=== PATIENT | male | born 1940 | race Caucasian/White ===

== ENCOUNTER → 2016-06-23 | Outpatient (CLI) | payer MEDICARE, OTHER ==
[2016-06-23 09:16] LABS: HEMATOCRIT 34.9 % (37.9-51.0); HEMOGLOBIN 11.9 g/dL (13.5-17.0); HGB HCT DIFFERENCE 0.8; MEAN CORPUSCULAR VOLUME 88 fl (80-97); RED BLOOD COUNT 3.95 10^6/uL (4.35-5.55); RED CELL DISTRIBUTION WIDTH 14.1 % (11.5-14.0); WHITE BLOOD COUNT 10.1 10^3/uL (4.0-10.5)
[2016-06-23 09:31] LABS: ANION GAP 12 (5-19); BLOOD UREA NITROGEN 26 mg/dL (7-20); CALCIUM 9.4 mg/dL (8.4-10.2); CARBON DIOXIDE 21 mmol/L (22-30); CHLORIDE 109 mmol/L (98-107); CREATININE RESULT 2.53 mg/dL (0.52-1.25); GLUCOSE 130 mg/dL (75-110); POTASSIUM 4.3 mmol/L (3.6-5.0); SODIUM 142.3 mmol/L (137-145)
[2016-06-23 09:37] LABS: APPEARANCE,URINE CLEAR; BILIRUBIN,URINE NEGATIVE (NEGATIVE); GLUCOSE, URINE NEGATIVE (NEGATIVE); KETONES,URINE NEGATIVE (NEGATIVE); LEUKOCYTE ESTERASE,URINE NEGATIVE (NEGATIVE); NITRITE,URINE NEGATIVE (NEGATIVE); PROTEIN,URINE NEGATIVE (NEGATIVE); URINE SPECIFIC GRAVITY 1.005; UROBILINOGEN,URINE NEGATIVE mg/dL (<2.0)
== END ==
LOC: LAB 09:06
PROVIDERS: ATTEND Internal Medicine Nephrology
DX: I12.9 Hypertensive chronic kidney disease with stage 1 through stage 4 chronic kidney disease, or unspecified chronic kidney disease (principal); N18.3 Chronic kidney disease, stage 3 (moderate); E87.5 Hyperkalemia; R80.9 Proteinuria, unspecified; D64.9 Anemia, unspecified
CPT/HCPCS: 36415; 80048; 81001; 82570; 84156; 85027

== ENCOUNTER 2016-07-12 08:17 | Inpatient (IN) | payer MEDICARE, OTHER ==
[2016-07-12] MEDS ORDERED: NORMAL SALINE 1000 ML 1,000 ML IV ONE ×2 (08:45→08:46)
[2016-07-12] MEDS ORDERED: ONDANSETRON HCL INJ/PF 4 MG/2 ML SDV IV ONE (08:46)
[2016-07-12 09:02] LABS: ABSOLUTE EOSINOPHILS # (AUTO) 0.1 10^3/uL (0.0-0.6); ABSOLUTE LYMPHOCYTES (AUTO) 0.9 10^3/uL (0.5-4.7); ABSOLUTE MONOCYTES (AUTO) 0.5 10^3/uL (0.1-1.4); ABSOLUTE NEUT (AUTO) 10.8 10^3/uL (1.7-8.2); BASOPHILS % (AUTO) 0.2 % (0-2); EOSINOPHILS % (AUTO) 0.7 % (0-6); HEMATOCRIT 39.3 % (37.9-51.0); HEMOGLOBIN 13.3 g/dL (13.5-17.0); HGB HCT DIFFERENCE 0.6; LYMPHOCYTES % (AUTO) 7.2 % (13-45); MEAN CORPUSCULAR HEMOGLOBIN 30.1 pg (27.0-33.4); MEAN CORPUSCULAR VOLUME 89 fl (80-97); MONOCYTES % (AUTO) 4.3 % (3-13); RED BLOOD COUNT 4.43 10^6/uL (4.35-5.55); RED CELL DISTRIBUTION WIDTH 14.1 % (11.5-14.0); SEGMENTED NEUTROPHILS % (AUTO) 87.6 % (42-78); WHITE BLOOD COUNT 12.3 10^3/uL (4.0-10.5)
[2016-07-12 09:20] LABS: ALANINE AMINOTRANSFERASE 29 U/L (21-72); ALBUMIN 4.5 g/dL (3.5-5.0); ALKALINE PHOSPHATASE 157 U/L (38-126); ANION GAP 18 (5-19); ASPARTATE AMINO TRANSFERASE 25 U/L (17-59); BILIRUBIN,DIRECT 0.5 mg/dL (0.0-0.4); BILIRUBIN,TOTAL 0.7 mg/dL (0.2-1.3); BLOOD UREA NITROGEN 36 mg/dL (7-20); CALCIUM 10.4 mg/dL (8.4-10.2); CARBON DIOXIDE 19 mmol/L (22-30); CHLORIDE 102 mmol/L (98-107); CREATININE RESULT 3.62 mg/dL (0.52-1.25); GLUCOSE 154 mg/dL (75-110); LIPASE 113.5 U/L (23-300); POTASSIUM 5.3 mmol/L (3.6-5.0); SODIUM 139.1 mmol/L (137-145); TOTAL PROTEIN 8.6 g/dL (6.3-8.2)
[2016-07-12] MEDS ORDERED: DIPHENHYDRAMINE HCL 50 MG/ML VIAL IV ONE (09:58)
[2016-07-12] MEDS ORDERED: METOCLOPRAMIDE HCL INJ/PF 10 MG/2 ML SDV IV ONE (09:58)
--- NOTE | 2016-07-12 10:02 | ER Document Report ---
ED General - General Chief Complaint: Abdominal Pain Stated Complaint: ABDOMINAL PAIN TRAVEL OUTSIDE OF THE [place] IN LAST 30 DAYS: No - HPI Patient complains to provider of: left lower quadrant abdominal pain Notes: Patient presents today for left lower quadrant abdominal pain. Patient states nausea vomiting with no bowel movement for last 2 days no urinary output for the last 24 hours. Patient does have a history of renal insufficiency. Patient is currently on Lasix to as well. Patient also has a history of a AAA with endograft repair possibly 15 years prior. Patient also has a history of bowel resection. Upon evaluation patient is alert and oriented complaining of nausea looks nontoxic. States no radiation of pain into his back. He states no fevers or chills. - Related Data Allergies/Adverse Reactions: iodine [Iodine] Allergy (Mild, Verified 07/12/16 08:28) itching, burning Penicillins Allergy (Mild, Verified 07/12/16 08:28) welts, nausea, nomiting Past Medical History - Social History Smoking Status: Never Smoker Frequency of alcohol use: None Drug Abuse: None Family History: Reviewed & Not Pertinent Patient has suicidal ideation: No Patient has homicidal ideation: No - Past Medical History Cardiac Medical History: Reports: Hx Coronary Artery Disease, Hx Hypercholesterolemia, Hx Hypertension Denies: Hx Heart Attack Pulmonary Medical History: Denies: Hx Asthma, Hx Bronchitis, Hx COPD, Hx Pneumonia Neurological Medical History: Denies: Hx Cerebrovascular Accident, Hx Seizures Endocrine Medical History: Reports: Hx Hypothyroidism Renal/ Medical History: Reports: Hx Benign Prostatic Hyperplasia. Denies: Hx Peritoneal Dialysis GI Medical History: Reports: Hx Diverticulitis Musculoskeltal Medical History: Reports Hx Arthritis Past Surgical History: Reports: Hx Abdominal Surgery - colectomy, Hx Appendectomy, Other - Back Surgery (Patient is unsure what type). Denies: Hx Pacemaker - Immunizations Hx Diphtheria, Pertussis, Tetanus Vaccination: No Hx Pneumococcal Vaccination: 12/07/14 Review of Systems - Review of Systems Constitutional: No symptoms reported EENT: No symptoms reported Cardiovascular: No symptoms reported Respiratory: No symptoms reported Gastrointestinal: Abdominal pain, Nausea, Vomiting Genitourinary: No symptoms reported Male Genitourinary: No symptoms reported Musculoskeletal: No symptoms reported Skin: No symptoms reported Hematologic/Lymphatic: No symptoms reported Neurological/Psychological: No symptoms reported -: Yes All other systems reviewed and negative Physical Exam - Vital signs Vitals: Temp Pulse Resp BP Pulse Ox 97.2 F 95 20 126/72 H 95 07/12/16 08:25 07/12/16 08:25 07/12/16 08:25 07/12/16 08:25 07/12/16 08:25 Interpretation: Normal - General General appearance: Appears well, Alert - HEENT Head: Normocephalic, Atraumatic Eyes: Normal Pupils: PERRL - Respiratory Respiratory status: No respiratory distress Chest status: Nontender Breath sounds: Normal Chest palpation: Normal - Cardiovascular Rhythm: Regular Heart sounds: Normal auscultation Murmur: No - Abdominal Inspection: Normal Distension: No distension Bowel sounds: Normal Tenderness: Tender - Mild to moderate left lower quadrant tenderness. Voluntary guarding. No: Rebound Organomegaly: No organomegaly - Back Back: Normal, Nontender - Extremities General upper extremity: Normal inspection, Nontender, Normal color, Normal ROM , Normal temperature General lower extremity: Normal inspection, Nontender, Normal color, Normal ROM , Normal temperature, Normal weight bearing. No: Jason's sign - Neurological Neuro grossly intact: Yes Cognition: Normal Orientation: AAOx4 Kat Coma Scale Eye Opening: Spontaneous Kat Coma Scale Verbal: Oriented Kat Coma Scale Motor: Obeys Commands Kat Coma Scale Total: 15 Speech: Normal Motor strength normal: LUE, RUE, LLE, RLE Sensory: Normal - Psychological Associated symptoms: Normal affect, Normal mood - Skin Skin Temperature: Warm Skin Moisture: Dry Skin Color: Normal Course - Vital Signs Vital signs: Temp Pulse Resp BP Pulse Ox 97.2 F 95 20 126/72 H 95 07/12/16 08:25 07/12/16 08:25 07/12/16 08:40 07/12/16 08:25 07/12/16 08:25 - Laboratory Result Diagrams: 07/12/16 08:46 07/12/16 08:46 Laboratory results interpreted by me: 07/12/16 07/12/16 08:46 08:46 WBC 12.3 H Hgb 13.3 L RDW 14.1 H Seg Neutrophils % 87.6 H Lymphocytes % 7.2 L Absolute Neutrophils 10.8 H Potassium 5.3 H Carbon Dioxide 19 L BUN 36 H Creatinine 3.62 H Est GFR ( Amer) 20 L Est GFR (Non-Af Amer) 17 L Glucose 154 H Calcium 10.4 H Direct Bilirubin 0.5 H Alkaline Phosphatase 157 H Total Protein 8.6 H Discharge - Discharge Clinical Impression: Small bowel obstruction, History of chronic kidney disease, History of abdominal aortic aneurysm (AAA) repair Acute renal failure superimposed on chronic kidney disease Qualifiers: Acute renal failure type: unspecified Chronic kidney disease stage: unspecified stage Qualified Code(s): N17.9 - Acute kidney failure, unspecified; N18.9 - Chronic kidney disease, unspecified Nausea and vomiting Qualifiers: Vomiting type: unspecified Vomiting Intractability: unspecified Qualified Code( s): R11.2 - Nausea with vomiting, unspecified Condition: Good Disposition: ADMITTED INPATIENT Admitting Provider: Hospitalist - [facility] Admitted: Medical Floor
[2016-07-12] MEDS ORDERED: LIDOCAINE 1% INJ-PF (10 MG/ML) 30 ML SDV NEB ONE (13:45)
[2016-07-12] MEDS ORDERED: ALBUTEROL SULFATE 0.083% NEB 2.5 MG/3 ML AMPUL NEB PRN (14:46)
[2016-07-12] MEDS ORDERED: DEXTROSE 50%-WATER 25 GM/50 ML DISP.SYRIN IV PRN ×2 (14:46)
[2016-07-12] MEDS ORDERED: ACETAMINOPHEN 325 MG TABLET NG PRN (14:46)
[2016-07-12] MEDS ORDERED: DEXTROSE 40% GEL 15 GM TUBE PO PRN ×2 (14:46)
[2016-07-12] MEDS ORDERED: GLUCAGON,HUMAN RECOMB 1 MG INJ SUBCUT PRN (14:46)
[2016-07-12] MEDS ORDERED: PHARMACY COMMUNICATION ORDER MC NR (15:00)
--- NOTE | 2016-07-12 15:05 | PDOC H&P ---
History of Present Illness Admission Date/PCP: 07/12/16 14:13 RITCHIE HENLEY MD Patient complains of: Nausea vomiting and abdominal pain 3 days History of Present Illness: EYAL ELLER is a 75 year old male who has a history of diverticulitis requiring a partial colectomy 15 years ago who had a small bowel obstruction about 5 years ago requiring surgery who presents with abdominal pain. The patient reports for the last 3 days he's had nausea vomiting and lower abdominal pain. She reports this was very similar to what he had 5 years ago that required a surgical intervention for his small bowel obstruction. Patient has not had a bowel movement since . He also reports the last time he was able to keep down food was . He denies any fevers or chills. He reports the pain in his lower abdomen but does not radiate. He denies any melena or bright red blood per rectum. He denies any hematemesis. The patient denies any exposure to anyone who has been ill. Denies any travel outside of [facility]. Past Medical History Cardiac Medical History: Reports: Hyperlipidema, Hypertension, Other - History of abdominal aortic aneurysm repair endovascular Denies: Myocardial Infarction Pulmonary Medical History: Reports: Chronic Obstructive Pulmonary Disease (COPD) Denies: Asthma, Bronchitis, Pneumonia EENT Medical History: Reports: None Endocrine Medical History: Reports: Hypothyroidism Renal/ Medical History: Reports: Chronic Kidney Disease Malignancy Medical History: Reports: None GI Medical History: Reports: Diverticulitis, Gastroesophageal Reflux Disease Musculoskeltal Medical History: Reports: Arthritis Skin Medical History: Reports: None Psychiatric Medical History: Reports: None Hematology: Denies: Anemia Infectious Medical History: Reports: None Past Surgical History Past Surgical History: Reports: Appendectomy, Other - Back Surgery (Patient is unsure what type) also had a partial colectomy Social History Information Source: Patient Lives with: Spouse/Significant other Smoking Status: Never Smoker Frequency of Alcohol Use: None Hx Recreational Drug Use: No Drugs: None Hx Prescription Drug Abuse: No - Advance Directive Resuscitation Status: Do Not Resuscitate Surrogate healthcare decision maker:: His Family History Family History: Mother at age 55 of lung cancer and COPD. Father in his 50s from coronary artery disease. Parental Family History Reviewed: Yes Children Family History Reviewed: No Sibling(s) Family History Reviewed.: No Medication/Allergy Home Medications: Acetaminophen [Tylenol 325 mg Tablet] 325 mg PO Q4HP PRN 04/24/11 Albuterol 2 puff IH Q4H PRN 04/24/11 Amitriptyline HCl [Elavil 25 Mg Tablet] 25 mg PO QHS 04/24/11 Cyanocobalamin (Vitamin B-12) [Vitamin B-12] 1,500 mcg PO DAILY 04/24/11 Cyclobenzaprine HCl 10 mg PO ASDIR PRN 04/24/11 Diltiazem HCl [Tiazac] 240 mg PO DAILY 04/24/11 Hydralazine HCl [Apresoline 25 Mg Tablet] 25 mg PO BID 04/24/11 Levothyroxine Sodium [Synthroid] 225 mcg PO DAILY 04/24/11 Potassium Chloride [Klor-Con 10 Meq Tablet.sa] 40 meq PO DAILY 04/24/11 Brinzolamide/Brimonidine Tart [Simbrinza 1%-0.2% Eye Drops] 1 drop OP TID Finasteride [Proscar 5 mg Tablet] 5 mg PO DAILY 08/07/15 Fluticasone Propionate [Flovent Hfa] 10.6 gm IH PRN PRN 08/07/15 Pseudoephedrine/Triprolidine [Aprodine Tablet] 1 each PO BID 08/07/15 Tamsulosin HCl [Flomax 0.4 mg Cap.sr] 0.4 mg PO DAILY 08/07/15 Tramadol HCl [Ultram] 50 mg PO BID 08/07/15 Allergies/Adverse Reactions: iodine [Iodine] Allergy (Mild, Verified 07/12/16 08:28) itching, burning Penicillins Allergy (Mild, Verified 07/12/16 08:28) welts, nausea, nomiting Review of Systems Constitutional: ABSENT: chills, fever(s), headache(s), weight gain, weight loss Eyes: ABSENT: visual disturbances Ears: ABSENT: hearing changes Cardiovascular: ABSENT: chest pain, dyspnea on exertion, edema, orthropnea, palpitations Respiratory: ABSENT: cough, hemoptysis Gastrointestinal: PRESENT: as per HPI, abdominal pain, heartburn, nausea, vomiting. ABSENT: coffee ground emesis, diarrhea, dysphagia, hematemesis, hematochezia, melena Genitourinary: ABSENT: dysuria, hematuria Musculoskeletal: ABSENT: joint swelling Integumentary: ABSENT: rash, wounds Neurological: ABSENT: abnormal gait, abnormal speech, confusion, dizziness, focal weakness, syncope Psychiatric: ABSENT: anxiety, depression Endocrine: ABSENT: cold intolerance, heat intolerance, polydipsia, polyuria Hematologic/Lymphatic: ABSENT: easy bleeding, easy bruising Physical Exam Vital Signs: Temp Pulse Resp BP Pulse Ox 97.2 F 95 20 126/72 H 95 07/12/16 08:25 07/12/16 08:25 07/12/16 08:40 07/12/16 08:25 07/12/16 08:25 General appearance: PRESENT: no acute distress, well-developed, well-nourished Head exam: PRESENT: atraumatic, normocephalic Eye exam: PRESENT: conjunctiva pink, EOMI, PERRLA. ABSENT: scleral icterus Ear exam: PRESENT: normal external ear exam Mouth exam: PRESENT: moist, tongue midline Neck exam: ABSENT: carotid bruit, JVD, lymphadenopathy, thyromegaly Respiratory exam: PRESENT: clear to auscultation brenda. ABSENT: rales, rhonchi, wheezes Cardiovascular exam: PRESENT: RRR. ABSENT: diastolic murmur, rubs, systolic murmur Vascular exam: PRESENT: normal capillary refill GI/Abdominal exam: PRESENT: hypoactive bowel sounds, soft, tenderness - Lower abdominal tenderness but no guarding or rebound.. ABSENT: distended, guarding, mass, organolmegaly, rebound Rectal exam: PRESENT: deferred Extremities exam: ABSENT: calf tenderness, clubbing, pedal edema Neurological exam: PRESENT: alert, awake, oriented to person, oriented to place , oriented to time, oriented to situation, CN II-XII grossly intact. ABSENT: motor sensory deficit Psychiatric exam: PRESENT: appropriate affect, normal mood Skin exam: PRESENT: dry, intact, warm. ABSENT: cyanosis, rash Results Impressions: Abdomen/Pelvis CT 07/12/16 08:46 IMPRESSION: CT FINDINGS CONCERNING FOR DISTAL SMALL BOWEL OBSTRUCTION WITH TRANSITION POINT AT SURGICAL ANASTOMOSIS. SURGICAL CONSULTATION RECOMMENDED. Assessment & Plan - Diagnosis (1) Small bowel obstruction Is this a current diagnosis for this admission?: YesPlan: Patient has a history the past of diverticulitis requiring a partial colectomy. He had a small bowel obstruction 5 years ago that required surgical repair. Reports symptoms he is having now are just like what he had previously. We will place an NG tube. We'll start the patient on IV fluids and ask surgery to evaluate. We'll give narcotics as needed. We'll also follow KUB in the morning. (2) Diverticulitis Is this a current diagnosis for this admission?: YesPlan: Patient has a history of diverticulitis but has no obvious infection today. There is mostly obstruction. (3) COPD (chronic obstructive pulmonary disease) Is this a current diagnosis for this admission?: YesPlan: We'll give nebulizers as needed. (4) Hypertension Is this a current diagnosis for this admission?: YesPlan: Patient has been on hydralazine and diltiazem. We'll give IV hydralazine while he is nothing by mouth. (5) Gastroesophageal reflux disease Is this a current diagnosis for this admission?: YesPlan: We'll give IV Pepcid (6) Hypothyroidism Is this a current diagnosis for this admission?: YesPlan: Patient reports that he has been on 225 g Synthroid. Will see how he does with the next 24 hours we'll start him on IV thyroid replacement if he is unable to take by mouth in the next 24 hours. (7) Acute on chronic kidney failure Qualifiers: Acute renal failure type: unspecified Chronic kidney disease stage: unspecified stage Qualified Code(s): N17.9 - Acute kidney failure, unspecified; N18.9 - Chronic kidney disease, unspecified Is this a current diagnosis for this admission?: YesPlan: Patient has acute on chronic renal failure stage III. We'll give IV fluids and hold his Lasix for now. (8) History of AAA (abdominal aortic aneurysm) repair Is this a current diagnosis for this admission?: YesPlan: He has a history of endovascular repair. (9) Do not resuscitate Is this a current diagnosis for this admission?: YesPlan: The patient requests to be a DO NOT RESUSCITATE. The is present and is in agreement. - Time Time Spent: 50 to 70 Minutes - Inpatient Certification Medical Necessity: Need Close Monitoring Due to Risk of Patient Decompensation, Need For IV Fluids - Plan Summary Plan Summary: We'll admit to medical floor and ask general surgery to consult.
[2016-07-12] MEDS: HYDROMORPHONE HCL INJ/PF 2 MG/ML AMPULE IV PRN ×2 (15:18→21:37)
[2016-07-12 15:29] LABS: APPEARANCE,URINE CLEAR; BILIRUBIN,URINE NEGATIVE (NEGATIVE); GLUCOSE, URINE NEGATIVE (NEGATIVE); KETONES,URINE NEGATIVE (NEGATIVE); LEUKOCYTE ESTERASE,URINE NEGATIVE (NEGATIVE); NITRITE,URINE NEGATIVE (NEGATIVE); PROTEIN,URINE 30 mg/dL (NEGATIVE); URINE SPECIFIC GRAVITY 1.013; UROBILINOGEN,URINE NEGATIVE mg/dL (<2.0)
[2016-07-12] MEDS: ONDANSETRON HCL INJ/PF 4 MG/2 ML SDV IV PRN ×2 (15:54→21:37)
[2016-07-12] MEDS: NORMAL SALINE 1000 ML 1,000 ML IV PRN (18:49)
--- NOTE | 2016-07-12 20:53 | CONSULTATION REPORT E ---
Consultation Report NAME: EYAL ELLER : 1940 AGE: 75Y DATE: 07/12/2016 401 A TO: BATSHEVA MEJIA M.D. FROM: Emergency Room Requesting Physician REASON FOR CONSULTATION: Evaluation and management of abdominal pain, nausea and vomiting and possible small bowel obstruction. HISTORY OF PRESENT ILLNESS: This gentleman has a significant history of small bowel obstruction in the past. In 2002 or 15 years ago, he had an open colon resection by Dr. James. The patient cannot remember the reason for colectomy; in any case, the patient says he had a subtotal colectomy and possible right colectomy. After that, 6 years ago he had an episode of small bowel obstruction when he was out of town in [place] and he had to undergo an exploratory laparotomy at the time for a small bowel lysis of adhesions and he did well after that. After that he some abdominal pain but never had a significant episode of obstruction. About 3 years ago he had abdominal aortic aneurysm repair, endovascular repair. Other than that he has been doing fine except for hypertension, but this time found to have renal failure on lab investigations. Otherwise he has been in usual health with on and off abdominal pain. He is now presenting with a 2-day history of abdominal pain that started the day before yesterday. Yesterday he threw up a few times at home and could not tolerate anymore pain and came to our emergency room. After coming here, he vomited once. No bowel movements for the last 3 days and the pain is mostly in the midabdomen, crampy with nausea. PAST MEDICAL HISTORY: 1. History of abdominal aortic aneurysm. 2. History of adhesions. 3. History of laparotomies in the past. 4. Hypertension. 5. Possible chronic renal insufficiency. PAST SURGICAL HISTORY: 1. Colectomy in the past. 2. Exploratory laparotomy and lysis of adhesions again in the past. 3. Abdominal aortic aneurysm repair and endovascular repair. PERSONAL HISTORY: Not a smoker, does not drink alcohol, lives with the family. REVIEW OF SYSTEMS: As per examination. PHYSICAL EXAMINATION: GENERAL: Reveals an elderly gentleman, very pleasant, mildly dehydrated. VITAL SIGNS: Blood pressure 126/72, heart rate around 95, saturating 95% at room air, afebrile. HEAD/NECK: Normocephalic. Normal sclerae, no icterus. Mildly dehydrated. No lymphadenopathy, no masses. RESPIRATORY: Both lungs are clear to auscultation. CARDIOVASCULAR: Both sounds regular. No murmurs or gallops. ABDOMINAL: Moderately distended, soft, moderately tender diffusely but no rebound tenderness and no palpable hernia. Hyperactive bowel sounds on auscultation. There is a long midline incision. EXTREMITIES: Warm and well perfused. DIAGNOSTIC DATA: Significant for white count which is 12.3, hemoglobin. Chemistry: Potassium , BUN 36, creatinine 3.62. CT scan of the abdomen and pelvis reveals dilated small bowel loops up to the area of anastomosis in the right upper quadrant area near anastomosis. Possibly there seemed to be within the right colon and small bowel with dilation proximal to that area. IMPRESSION OVERALL: Small bowel obstruction and based on the CT scan, he may have a stricture of the anastomotic area, and if it is due to stricture, he will need surgical intervention. If it is mostly adhesive obstruction, I expect that to make it better. In any case, since he does not have any peritoneal signs, the plan is to admit him, IV hydration, admit to medical service because of medical problems. IV hydration cautiously and then NG tube for decompression, bowel rest, Bingham catheter and then to monitor the urine output accurately and then based on his response to therapy, we will plan if he needs any surgical intervention and close monitoring. Thank you for allowing me to participate in the care of this patient. DICTATING PHYSICIAN: BATSHEVA MEJIA M.D. [id number] PHY#: [id number] ID: [id number] JOB#: [id number] ACCT: [id number] cc:BATSHEVA MEJIA M.D. > MTDD
[2016-07-12] MEDS: FAMOTIDINE INJ/PF 20 MG/2 ML SDV IV SCH (21:37)
[2016-07-13] MEDS: ONDANSETRON HCL INJ/PF 4 MG/2 ML SDV IV PRN ×4 (02:00→21:30)
[2016-07-13] MEDS: NORMAL SALINE 1000 ML 1,000 ML IV PRN ×4 (02:00→23:51)
[2016-07-13] MEDS: HYDROMORPHONE HCL INJ/PF 2 MG/ML AMPULE IV PRN ×6 (02:00→23:48)
[2016-07-13 05:16] LABS: HEMATOCRIT 33.5 % (37.9-51.0); HGB HCT DIFFERENCE 0.7; MEAN CORPUSCULAR HEMOGLOBIN 30.5 pg (27.0-33.4); MEAN CORPUSCULAR VOLUME 90 fl (80-97); RED BLOOD COUNT 3.74 10^6/uL (4.35-5.55); RED CELL DISTRIBUTION WIDTH 13.9 % (11.5-14.0); WHITE BLOOD COUNT 8.6 10^3/uL (4.0-10.5)
[2016-07-13 05:19] LABS: HEMOGLOBIN 11.4 g/dL (13.5-17.0)
[2016-07-13 05:25] LABS: ANION GAP 10 (5-19); BLOOD UREA NITROGEN 29 mg/dL (7-20); CALCIUM 8.8 mg/dL (8.4-10.2); CARBON DIOXIDE 18 mmol/L (22-30); CHLORIDE 112 mmol/L (98-107); CREATININE RESULT 2.49 mg/dL (0.52-1.25); GLUCOSE 93 mg/dL (75-110); POTASSIUM 4.6 mmol/L (3.6-5.0); SODIUM 140.4 mmol/L (137-145)
--- NOTE | 2016-07-13 09:34 | PDOC PROGRESS REPORT ---
Subjective Progress Note for:: 07/13/16 Subjective:: Patient reports that his nausea and abdominal pain has improved. He denies any flatus or bowel movements. Physical Exam Vital Signs: Temp Pulse Resp BP Pulse Ox 98.4 F 94 17 131/68 H 95 07/13/16 07:30 07/13/16 07:30 07/13/16 07:30 07/13/16 07:30 07/13/16 07:30 Intake & Output 07/12/16 07/13/16 07/14/16 06:59 06:59 06:59 Intake Total 1975 1818 Output Total 1850 Balance 125 1818 Weight 75.3 kg General appearance: PRESENT: no acute distress Eye exam: PRESENT: conjunctiva pink. ABSENT: scleral icterus Mouth exam: PRESENT: moist, tongue midline Neck exam: ABSENT: JVD Respiratory exam: PRESENT: clear to auscultation brenda. ABSENT: rales, rhonchi, wheezes Cardiovascular exam: PRESENT: RRR. ABSENT: diastolic murmur, rubs, systolic murmur GI/Abdominal exam: PRESENT: hypoactive bowel sounds, soft, tenderness - Mild lower abdominal tenderness but no guarding or rebound.. ABSENT: distended, guarding, mass, organolmegaly, rebound Extremities exam: ABSENT: calf tenderness, clubbing, pedal edema Neurological exam: PRESENT: alert, awake, oriented to person, oriented to place , oriented to time, oriented to situation, CN II-XII grossly intact. ABSENT: motor sensory deficit Psychiatric exam: PRESENT: appropriate affect Skin exam: PRESENT: dry, intact, warm. ABSENT: cyanosis, rash Results Laboratory Results: 07/13/16 03:52 07/13/16 03:52 07/12/16 07/13/16 07/13/16 15:00 03:52 03:52 WBC 8.6 RBC 3.74 L Hgb 11.4 L Hct 33.5 L MCV 90 MCH 30.5 MCHC 34.0 RDW 13.9 Plt Count 143 L Sodium 140.4 Potassium 4.6 Chloride 112 H Carbon Dioxide 18 L Anion Gap 10 BUN 29 H Creatinine 2.49 H Est GFR ( Amer) 31 L Est GFR (Non-Af Amer) 25 L Glucose 93 Calcium 8.8 Urine Color YELLOW Urine Appearance CLEAR Urine pH 5.0 Ur Specific [place] 1.013 Urine Protein 30 H Urine Glucose (UA) NEGATIVE Urine Ketones NEGATIVE Urine Blood NEGATIVE Urine Nitrite NEGATIVE Ur Leukocyte Esterase NEGATIVE Urine WBC (Auto) 1 Urine RBC (Auto) 4 Impressions: Abdomen/Pelvis CT 07/12/16 08:46 IMPRESSION: CT FINDINGS CONCERNING FOR DISTAL SMALL BOWEL OBSTRUCTION WITH TRANSITION POINT AT SURGICAL ANASTOMOSIS. SURGICAL CONSULTATION RECOMMENDED. KUB X-Ray 07/12/16 15:00 IMPRESSION: STABLE DISTENDED LOOPS OF BOWEL COMPATIBLE WITH OBSTRUCTION. NASOGASTRIC TUBE IS NOT VISUALIZED. CORRELATE WITH CLINICAL HISTORY. Abdomen X-Ray 07/13/16 06:30 IMPRESSION: APPARENT FREE AIR UNDER THE RIGHT HEMIDIAPHRAGM IN THE SETTING OF SMALL BOWEL OBSTRUCTION CONCERNING FOR PERFORATION. CT IS AVAILABLE FOR FURTHER EVALUATION IS INDICATED. RESULTS WERE COMMUNICATED TO THE ATTENDING SURGEON DR. MEJIA AT 0903 HOURS ON 07/13/2016. Assessment & Plan - Diagnosis (1) Small bowel obstruction Is this a current diagnosis for this admission?: YesPlan: Patient has a history the past of diverticulitis requiring a partial colectomy. He had a small bowel obstruction 5 years ago that required surgical repair. Reports symptoms he is having now are just like what he had previously. Was contacted by radiologist that there may be possibly free air in the abdomen. Patient is being followed by general surgery and will follow their recommendations. (2) Diverticulitis Is this a current diagnosis for this admission?: YesPlan: Patient has a history of diverticulitis but has no obvious infection today. There is mostly obstruction. (3) COPD (chronic obstructive pulmonary disease) Is this a current diagnosis for this admission?: YesPlan: We'll give nebulizers as needed. (4) Hypertension Is this a current diagnosis for this admission?: YesPlan: Patient has been on hydralazine and diltiazem. We'll give IV hydralazine while he is nothing by mouth. (5) Gastroesophageal reflux disease Is this a current diagnosis for this admission?: YesPlan: We'll give IV Pepcid (6) Hypothyroidism Is this a current diagnosis for this admission?: YesPlan: Patient reports that he has been on 225 g Synthroid. Will see how he does with the next 24 hours we'll start him on IV thyroid replacement if he is unable to take by mouth in the next 24 hours. (7) Acute on chronic kidney failure Qualifiers: Acute renal failure type: unspecified Chronic kidney disease stage: unspecified stage Qualified Code(s): N17.9 - Acute kidney failure, unspecified; N18.9 - Chronic kidney disease, unspecified Is this a current diagnosis for this admission?: YesPlan: Patient has acute on chronic renal failure stage III. Creatinine has improved with IV fluids. (8) History of AAA (abdominal aortic aneurysm) repair Is this a current diagnosis for this admission?: YesPlan: He has a history of endovascular repair. (9) Do not resuscitate Is this a current diagnosis for this admission?: YesPlan: The patient requests to be a DO NOT RESUSCITATE. The is present and is in agreement. - Time Time Spent with patient: 25-34 minutes - Inpatient Certification Medical Necessity: Need Close Monitoring Due to Risk of Patient Decompensation, Need For IV Fluids
[2016-07-13] MEDS: PHENOL/SODIUM PHENOLATE 100 SPRAY/177 ML BOTTLE PO PRN ×3 (11:10→23:48)
[2016-07-13] MEDS ORDERED: NITROGLYCERIN 2% OINTMENT 1 GM PACKET TP ONE (13:30)
[2016-07-13] MEDS ORDERED: METOPROLOL TARTRATE PF/INJ 5 MG/5 ML SDV IV PRN (13:31)
--- NOTE | 2016-07-13 13:31 | PDOC CONSULTATION ---
Consultation Consult Date: 07/13/16 Attending physician:: AUDI Mendieta BUSTEED Consult reason:: Abnormal EKG and chest pain History of Present Illness Admission Date/PCP: 07/12/16 14:46 RITCHIE HENLEY MD Patient complains of: Chest pain History of Present Illness: EYAL ELLER is a 75 year old male who has a history of diverticulitis requiring a partial colectomy 15 years ago who had a small bowel obstruction about 5 years ago requiring surgery who presents with abdominal pain. The patient reports for the last 3 days he's had nausea vomiting and lower abdominal pain. She reports this was very similar to what he had 5 years ago that required a surgical intervention for his small bowel obstruction. Patient has not had a bowel movement since . He also reports the last time he was able to keep down food was . He denies any fevers or chills. He reports the pain in his lower abdomen but does not radiate. He denies any melena or bright red blood per rectum. He denies any hematemesis. The patient denies any exposure to anyone who has been ill. Denies any travel outside of [facility]. Today while resting in bed, patient developed chest pain. An EKG was obtained which showed significant ST segment depression in lateral chest leads consistent with ischemia. On questioning patient did admit to having chest pain. Patient does describe some positional component to the chest pain. Patient has noted this mostly when his waist down but is better when he sits up. Patient describes the discomfort as tightness feeling. Patient denied any prior history of heart problems. Patient claims that he has had EKGs in the past and was not told to have a abnormal EKG. We do not have any prior EKG in this system. Patient does have increased QRS voltage. CT abdomen and pelvis were reviewed. These review showed patient does have coronary calcification in the LAD and circumflex territory. Past Medical History Cardiac Medical History: Reports: Coronary Artery Disease, Hyperlipidema, Hypertension, Other - History of abdominal aortic aneurysm repair endovascular Denies: Myocardial Infarction Pulmonary Medical History: Reports: Chronic Obstructive Pulmonary Disease (COPD) Denies: Asthma, Bronchitis, Pneumonia EENT Medical History: Reports: None Neurological Medical History: Denies: Seizures Endocrine Medical History: Reports: Hypothyroidism Renal/ Medical History: Reports: Chronic Kidney Disease Malignancy Medical History: Reports: None GI Medical History: Reports: Diverticulitis, Gastroesophageal Reflux Disease Musculoskeltal Medical History: Reports: Arthritis Skin Medical History: Reports: None Psychiatric Medical History: Reports: None Hematology: Denies: Anemia Infectious Medical History: Reports: None Past Surgical History Past Surgical History: Reports: Appendectomy, Other - Back Surgery (Patient is unsure what type) also had a partial colectomy Denies: Pacemaker Social History Information Source: Patient Lives with: Spouse/Significant other Smoking Status: Former Smoker Frequency of Alcohol Use: None Hx Recreational Drug Use: No Drugs: None Hx Prescription Drug Abuse: No - Advance Directive Resuscitation Status: Do Not Resuscitate Surrogate healthcare decision maker:: Patient's is the surrogate decision maker. Family History Family History: Reviewed & Not Pertinent Parental Family History Reviewed: Yes Children Family History Reviewed: Yes Sibling(s) Family History Reviewed.: Yes Medication/Allergy Home Medications: Acetaminophen [Tylenol] 325 mg PO ASDIR PRN 07/12/16 Albuterol Sulfate [Proair HFA] 2 puff IH Q4HP PRN 07/12/16 Amitriptyline HCl [Elavil 25 mg Tablet] 25 mg PO QHS 07/12/16 Brinzolamide/Brimonidine Tart [Simbrinza 1%-0.2% Eye Drops] 1 drop OU BID Cetirizine HCl [Zyrtec 10 mg Tablet] 1 tab PO BIDP PRN 07/12/16 Cyanocobalamin (Vitamin B-12) [Vitamin B12] 1,500 mcg PO DAILY 07/12/16 Cyclobenzaprine HCl [Flexeril 10 mg Tablet] 10 mg PO BID 07/12/16 Diltiazem HCl [Tiazac] 240 mg PO DAILY 07/12/16 Finasteride [Proscar 5 mg Tablet] 5 mg PO DAILY 07/12/16 Fluticasone Propionate [Flovent Diskus 100 mcg] 1 puff IH ASDIR PRN 07/12/16 Furosemide [Lasix] 20 mg PO ASDIR PRN 07/12/16 Hydralazine HCl [Apresoline 25 mg Tablet] 25 mg PO QHS 07/12/16 Hydralazine HCl [Apresoline 25 mg Tablet] 50 mg PO QAM 07/12/16 Levothyroxine Sodium [Synthroid] 25 mcg PO QAM 07/12/16 Levothyroxine Sodium [Synthroid] 200 mcg PO QAM 07/12/16 Losartan Potassium [Cozaar] 25 mg PO DAILY 07/12/16 Potassium Chloride 20 meq PO QAM 07/12/16 Tamsulosin HCl [Flomax 0.4 mg Cap.sr] 0.4 mg PO DAILY 07/12/16 Tramadol HCl [Ultram 50 mg Tablet] 50 mg PO BID 07/12/16 Allergies/Adverse Reactions: iodine [Iodine] Allergy (Mild, Verified 07/12/16 08:28) itching, burning Penicillins Allergy (Mild, Verified 07/12/16 08:28) welts, nausea, nomiting Review of Systems Review of Systems: Please see history of present illness and past medical history as wall. Constitutional: No fever or chills reported. Head : No recent chronic headaches, recent head injury. Eyes: No recent eye pain, diplopia, redness, discharge, acute visual changes. Ears: No recent chronic ear pain, acute hearing loss, ear discharge. Oral cavity: No recent ulcerations, bleeding, oral cavity discomfort. Neck: No recent acute neck pain reported. Hematologic: No recent easy bruising or bleeding or hematologic malignancy reported. Lymphatic: No recent lymphatic malignancy, chronic lymphadenopathy reported yet Cardiovascular system review: See history of present illness. No prior recent history of chest pain or significant dyspnea. Respiratory system review: No recent chronic cough, hemoptysis, blood clots in the lungs reported. Mild Shortness of breath on exertion Gastrointestinal system review: abdominal pain, heartburn, nausea, vomiting but no hematemesis, melena. Patient claims constipation. Genitourinary system review: No recent acute or chronic hematuria, flank pain, UTI etc. reported. Skin system review: Negative for any recent abnormal bruising, no rash, no pruritus reported. Neurologic: No prior history of strokes, mini strokes, seizure disorder. Psychologic: No history of major psychosis or major depression reported. Musculoskeletal: Minor aches and pains reported. No acute joint swelling reported. Endocrine: No recent polyuria, polydipsia, recent heat or cold intolerance. Physical Exam Vital Signs: Temp Pulse Resp BP Pulse Ox 98.4 F 104 H 18 167/85 H 98 07/13/16 11:24 07/13/16 11:24 07/13/16 11:24 07/13/16 11:24 07/13/16 11:24 Intake & Output 07/12/16 07/13/16 07/14/16 06:59 06:59 06:59 Intake Total 1975 2194 Output Total 1850 Balance 125 2194 Weight 75.3 kg Exam: GENERAL: well-nourished and in no acute distress. Alert and oriented x3 HEAD: Atraumatic, normocephalic. EYES: Pupils equal round and reactive to light, extraocular movements intact, sclera anicteric, conjunctiva are normal. ENT: TMs normal, nares patent, oropharynx clear without exudates. Moist mucous membranes. No oral ulcerations or bleeding gums noted NECK: supple without lymphadenopathy. Trachea is central. No cervical or axillary lymphadenopathy noted. Carotids are 2+, JVD WNL LUNGS: Respiration seems nonlabored, no significant accessory muscle action noted. Breath sounds clear to auscultation bilaterally and equal noted. No wheezes rales or rhonchi noted. No significant dullness noted on percussion. CHEST: Palpation of the chest wall shows no significant chest wall tenderness. No other significant abnormalities noted. HEART: [employer], No PSH, 1/6 RUSSELL aortic area, 1/6 mcgraw systolic murmur mitral area, no rubs, no gallops. ABDOMEN: Mild abdominal distention and tenderness appreciated in the lower abdomen, hypoactive bowel sounds. EXTREMITIES: Pedal pulses are 1-2+, no calf tenderness noted. No clubbing or cyanosis.negative for pedal edema noted NEUROLOGICAL: Focused neurological exam showed no significant neurologic deficit. Normal speech, no focal weakness appreciated. PSYCH: Normal mood, normal affect. Judgment and insight within normal limits. SKIN: No significant ecchymosis, rash, ulcerations or signs of pruritus noted. MUSCULOSKELETAL EXAM: No significant joint swelling noted. Results Laboratory Results: 07/13/16 03:52 07/13/16 03:52 07/12/16 07/13/16 07/13/16 15:00 03:52 03:52 WBC 8.6 RBC 3.74 L Hgb 11.4 L Hct 33.5 L MCV 90 MCH 30.5 MCHC 34.0 RDW 13.9 Plt Count 143 L Sodium 140.4 Potassium 4.6 Chloride 112 H Carbon Dioxide 18 L Anion Gap 10 BUN 29 H Creatinine 2.49 H Est GFR ( Amer) 31 L Est GFR (Non-Af Amer) 25 L Glucose 93 Calcium 8.8 Urine Color YELLOW Urine Appearance CLEAR Urine pH 5.0 Ur Specific [place] 1.013 Urine Protein 30 H Urine Glucose (UA) NEGATIVE Urine Ketones NEGATIVE Urine Blood NEGATIVE Urine Nitrite NEGATIVE Ur Leukocyte Esterase NEGATIVE Urine WBC (Auto) 1 Urine RBC (Auto) 4 Impressions: Abdomen/Pelvis CT 07/12/16 08:46 IMPRESSION: CT FINDINGS CONCERNING FOR DISTAL SMALL BOWEL OBSTRUCTION WITH TRANSITION POINT AT SURGICAL ANASTOMOSIS. SURGICAL CONSULTATION RECOMMENDED. KUB X-Ray 07/12/16 15:00 IMPRESSION: STABLE DISTENDED LOOPS OF BOWEL COMPATIBLE WITH OBSTRUCTION. NASOGASTRIC TUBE IS NOT VISUALIZED. CORRELATE WITH CLINICAL HISTORY. Abdomen X-Ray 07/13/16 06:30 IMPRESSION: APPARENT FREE AIR UNDER THE RIGHT HEMIDIAPHRAGM IN THE SETTING OF SMALL BOWEL OBSTRUCTION CONCERNING FOR PERFORATION. CT IS AVAILABLE FOR FURTHER EVALUATION IS INDICATED. RESULTS WERE COMMUNICATED TO THE ATTENDING SURGEON DR. MEJIA AT 0903 HOURS ON 07/13/2016. Assessment & Plan - Diagnosis (1) Abnormal electrocardiogram Is this a current diagnosis for this admission?: YesPlan: Patient noted to have a significantly abnormal EKG. There is no prior EKG available for comparison. Since patient has chest pain, is felt to be commissary representative of underlying cardiac ischemia. Patient also being suspected to have perforation of the small bowel. At this point we'll recommend IV beta jim. Would also strongly consider transfer to tertiary care in view of significant EKG changes especially if patient needs to undergo abdominal surgery which would be considered a high risk surgery. (2) Chest pain Qualifiers: Chest pain type: unspecified Qualified Code(s): R07.9 - Chest pain, unspecified Is this a current diagnosis for this admission?: YesPlan: Although this is atypical, high probability that this is ischemic in nature secondary to EKG changes, coronary calcification and on pretest probability. At this point agree with Nitropaste and also beta jim therapy. Patient currently nothing by mouth therefore cannot be started on statins, Ranexa etc.. Agree with obtaining serial cardiac enzymes. Anticoagulation currently contraindicated in view of patient being suspected to have a small bowel perforation. (3) Hypertension Qualifiers: Hypertension type: essential hypertension Qualified Code(s): I10 - Essential (primary) hypertension Is this a current diagnosis for this admission?: YesPlan: Currently stable. Will add IV beta jim on iclog-lly-aypyn basis. (4) Small bowel obstruction Is this a current diagnosis for this admission?: Yes (5) Chronic kidney disease Qualifiers: Chronic kidney disease stage: stage 4 (severe) Qualified Code(s): N18.4 - Chronic kidney disease, stage 4 (severe) Is this a current diagnosis for this admission?: YesPlan: Patient has baseline elevated creatinine and seems to have significant chronic kidney disease. - Notes Notes: Patient noted to have a significantly abnormal EKG. There is no prior EKG available for comparison. Since patient has chest pain, is felt to be commissary representative of underlying cardiac ischemia. Patient also being suspected to have perforation of the small bowel. At this point we'll recommend IV beta jim. Would also strongly consider transfer to tertiary care in view of significant EKG changes especially if patient needs to undergo abdominal surgery which would be considered a high risk surgery. In addition patient also has significant chronic kidney disease which is an independent cardiac risk factors. - Time Time Spent: 50 to 70 Minutes - CODE STATUS : was discussed, patient remains DO NOT RESUSCITATE. Surrogate decision-maker unchanged. Multiple medical problems were addressed.More than 50% of the time spent coordinating care, discussing management plans with involved caregivers. Management plans discussed with involved personnels. Medical decision making was of moderate to high complexity, patient's has multiple severe comorbidities. Medications reviewed and adjusted accordingly: Yes
[2016-07-13 14:05] LABS: CREATINE KINASE MB 1.28 ng/mL (<4.55)
[2016-07-13 14:07] LABS: TROPONIN I < 0.012 ng/mL
--- NOTE | 2016-07-13 15:32 | Progress Note ---
Provider Note Provider Note: The patient has had an eventful day. He had an episode of chest pain that he described as a sharp substernal pain that was made worse when he lies down but resolved when he stood up. Patient had an EKG done at this time which shows anterolateral ST segment depression. Because of the ST segment changes cardiology was consulted and they were concerned this may represent cardiac issues although it certainly is atypical. The patient had a troponin which was negative. There was also concern this morning the patient may have free air on his KUB. Abdominal CT shows no evidence for free air and actually has had improvement in his small bowel obstruction. Patient also reports this afternoon having had a bowel movement. I discussed this at length with the patient and his and children who are at the bedside. We have decided that we will continue to monitor on telemetry here and check serial cardiac enzymes. If his cardiac enzymes are negative we will pursue a stress test in the morning to show whether or not he does have cardiac disease. He does have positive troponins we will transfer out to a tertiary care center. If he has a normal stress test and does not continue to show improvement in his bowel obstruction we can rediscuss with general surgery as to whether or not he needs intervention. The patient has had surgery in the past by Dr. James and he would like to have Dr. James do any surgery on him if possible.
--- NOTE | 2016-07-13 16:33 | EKG REPORT ---
SEVERITY:- ABNORMAL ECG - SINUS TACHYCARDIA CONSIDER ANTEROSEPTAL INFARCT REPOL ABNRM SUGGESTS ISCHEMIA, DIFFUSE LEADS : Confirmed by: Rashid Mclean MD 13-Jul-2016 16:32:13
--- NOTE | 2016-07-13 16:46 | PDOC PROGRESS REPORT ---
Subjective Progress Note for:: 07/13/16 Subjective:: Pain abdomen better, had BM C/O Chest pain ekg changes , Physical Exam Vital Signs: Temp Pulse Resp BP Pulse Ox 98.2 F 105 H 18 174/88 H 98 07/13/16 16:37 07/13/16 16:37 07/13/16 16:37 07/13/16 16:37 07/13/16 16:37 Intake & Output 07/12/16 07/13/16 07/14/16 06:59 06:59 06:59 Intake Total 1975 2194 Output Total 1850 Balance 125 2194 Weight 75.3 kg GI/Abdominal exam: PRESENT: other - lESS DISTENDEED SOFT NON TENDER Results Laboratory Results: 07/13/16 03:52 07/13/16 03:52 07/13/16 07/13/16 07/13/16 03:52 03:52 13:04 WBC 8.6 RBC 3.74 L Hgb 11.4 L Hct 33.5 L MCV 90 MCH 30.5 MCHC 34.0 RDW 13.9 Plt Count 143 L Sodium 140.4 Potassium 4.6 Chloride 112 H Carbon Dioxide 18 L Anion Gap 10 BUN 29 H Creatinine 2.49 H Est GFR ( Amer) 31 L Est GFR (Non-Af Amer) 25 L Glucose 93 Calcium 8.8 Blood Type O POSITIVE Antibody Screen NEGATIVE 07/13/16 07/13/16 13:04 13:04 Creatine Kinase 51 L CK-MB (CK-2) 1.28 Troponin I < 0.012 Impressions: KUB X-Ray 07/12/16 15:00 IMPRESSION: STABLE DISTENDED LOOPS OF BOWEL COMPATIBLE WITH OBSTRUCTION. NASOGASTRIC TUBE IS NOT VISUALIZED. CORRELATE WITH CLINICAL HISTORY. Abdomen/Pelvis CT 07/13/16 00:00 IMPRESSION: RESOLVING DISTAL SMALL BOWEL OBSTRUCTION ABOVE. NO FREE AIR QUESTIONED ON PRIOR RADIOGRAPHS. Abdomen X-Ray 07/13/16 06:30 IMPRESSION: APPARENT FREE AIR UNDER THE RIGHT HEMIDIAPHRAGM IN THE SETTING OF SMALL BOWEL OBSTRUCTION CONCERNING FOR PERFORATION. CT IS AVAILABLE FOR FURTHER EVALUATION IS INDICATED. RESULTS WERE COMMUNICATED TO THE ATTENDING SURGEON DR. MEJIA AT 0903 HOURS ON 07/13/2016. Assessment & Plan - Plan Summary Plan Summary: Clinically Intestinal obstruction resolving. Developed chest pain consistent with Cardiac event as per cardiology. Mean time there was concern for Free air in the abdomen , even though clinically abdomen has been benign - ruled out the peforation with Repeat CT today, which did not reveal any signs of perforation or free air. Therefore no surgicla intervention at this time. As per cardiology patient has severe coronary disease with New [place] recommeding transfer to tertiary center. D/W Hospitalist , agree with the plan.
[2016-07-13] MEDS: NITROGLYCERIN 2% OINTMENT 1 GM PACKET TP SCH ×2 (17:38→23:48)
[2016-07-13] MEDS: FAMOTIDINE INJ/PF 20 MG/2 ML SDV IV SCH (21:30)
[2016-07-14] MEDS: HYDROMORPHONE HCL INJ/PF 2 MG/ML AMPULE IV PRN ×2 (06:09→09:50)
[2016-07-14] MEDS: NORMAL SALINE 1000 ML 1,000 ML IV PRN (06:09)
[2016-07-14] MEDS: NITROGLYCERIN 2% OINTMENT 1 GM PACKET TP SCH (06:09)
[2016-07-14 06:31] LABS: ABSOLUTE EOSINOPHILS # (AUTO) 0.1 10^3/uL (0.0-0.6); ABSOLUTE LYMPHOCYTES (AUTO) 1.1 10^3/uL (0.5-4.7); ABSOLUTE MONOCYTES (AUTO) 0.8 10^3/uL (0.1-1.4); BASOPHILS % (AUTO) 0.2 % (0-2); EOSINOPHILS % (AUTO) 0.6 % (0-6); HEMATOCRIT 33.5 % (37.9-51.0); HEMOGLOBIN 11.3 g/dL (13.5-17.0); HGB HCT DIFFERENCE 0.4; MEAN CORPUSCULAR HEMOGLOBIN 30.2 pg (27.0-33.4); MEAN CORPUSCULAR HGB CONC 33.8 g/dL (32.0-36.0); MEAN CORPUSCULAR VOLUME 89 fl (80-97); MONOCYTES % (AUTO) 7.6 % (3-13); RED BLOOD COUNT 3.75 10^6/uL (4.35-5.55); RED CELL DISTRIBUTION WIDTH 13.8 % (11.5-14.0); SEGMENTED NEUTROPHILS % (AUTO) 80.6 % (42-78)
[2016-07-14 06:41] LABS: ANION GAP 15 (5-19); BLOOD UREA NITROGEN 24 mg/dL (7-20); CALCIUM 8.8 mg/dL (8.4-10.2); CARBON DIOXIDE 17 mmol/L (22-30); CHLORIDE 113 mmol/L (98-107); CREATININE RESULT 1.68 mg/dL (0.52-1.25); GLUCOSE 89 mg/dL (75-110); POTASSIUM 4.3 mmol/L (3.6-5.0); SODIUM 144.6 mmol/L (137-145)
--- NOTE | 2016-07-14 06:51 | PDOC PROGRESS REPORT ---
Subjective Progress Note for:: 07/14/16 Subjective:: Minimal pain no nausea no BM TODAY YET Physical Exam Vital Signs: Temp Pulse Resp BP Pulse Ox 98.1 F 107 H 18 159/91 H 96 07/14/16 05:28 07/14/16 05:28 07/14/16 05:28 07/14/16 05:28 07/14/16 05:28 Intake & Output 07/12/16 07/13/16 07/14/16 06:59 06:59 06:59 Intake Total 2627 Output Total 2900 Balance -273 Weight 75.6 kg GI/Abdominal exam: PRESENT: other - sOFT, MILD DISTENTION Results Laboratory Results: 07/14/16 06:21 07/14/16 06:21 WBC 10.0 RBC 3.75 L Hgb 11.3 L Hct 33.5 L MCV 89 MCH 30.2 MCHC 33.8 RDW 13.8 Plt Count 140 L Seg Neutrophils % 80.6 H Lymphocytes % 11.0 L Monocytes % 7.6 Eosinophils % 0.6 Basophils % 0.2 Absolute Neutrophils 8.0 Absolute Lymphocytes 1.1 Absolute Monocytes 0.8 Absolute Eosinophils 0.1 Absolute Basophils 0.0 07/13/16 07/14/16 19:35 02:00 Troponin I 0.029 0.081 Impressions: KUB X-Ray 07/12/16 15:00 IMPRESSION: STABLE DISTENDED LOOPS OF BOWEL COMPATIBLE WITH OBSTRUCTION. NASOGASTRIC TUBE IS NOT VISUALIZED. CORRELATE WITH CLINICAL HISTORY. Abdomen/Pelvis CT 07/13/16 00:00 IMPRESSION: RESOLVING DISTAL SMALL BOWEL OBSTRUCTION ABOVE. NO FREE AIR QUESTIONED ON PRIOR RADIOGRAPHS. Abdomen X-Ray 07/13/16 06:30 IMPRESSION: APPARENT FREE AIR UNDER THE RIGHT HEMIDIAPHRAGM IN THE SETTING OF SMALL BOWEL OBSTRUCTION CONCERNING FOR PERFORATION. CT IS AVAILABLE FOR FURTHER EVALUATION IS INDICATED. RESULTS WERE COMMUNICATED TO THE ATTENDING SURGEON DR. MEJIA AT 0903 HOURS ON 07/13/2016. Assessment & Plan - Plan Summary Plan Summary: iNTESTINAL OBSTRUCTION - SLOW LY RESOLVING KEEP NG TUBE TODAY Cardiac event - chst pain possible [place] - Cardiology recommends transfer - patient does not wants to get transferred. Hopefully obstruction will resolve completely
[2016-07-14 09:02] VITALS: BP 157/82
--- NOTE | 2016-07-14 09:48 | PDOC TRANSFER SUMMARY ---
General Admission Date/PCP: 07/13/16 15:32 RITCHIE HENLEY MD Transfer Date: 07/14/16 Accepting Facility: [facility] Accepting Physician: Danielle Sosa Resuscitation Status: Do Not Resuscitate - Transfer Diagnosis (1) Small bowel obstruction Is this a current diagnosis for this admission?: YesDiagnosis Summary: This is resolving. Yesterday was concern about the possibility of free air on the KUB however the CT scan did not show any free air. He has had bowel movements starting yesterday and the NG tube is to be DC'd this morning. (2) Diverticulitis Is this a current diagnosis for this admission?: YesDiagnosis Summary: He has a history of diverticulitis in the past as the cause for his need for partial colectomy. He did not have any evidence for diverticulitis during this hospitalization. (3) COPD (chronic obstructive pulmonary disease) Is this a current diagnosis for this admission?: Yes (4) Hypertension Is this a current diagnosis for this admission?: Yes (5) Gastroesophageal reflux disease Is this a current diagnosis for this admission?: Yes (6) Hypothyroidism Is this a current diagnosis for this admission?: Yes (7) Acute on chronic kidney failure Is this a current diagnosis for this admission?: YesDiagnosis Summary: Patient has stage III chronic renal failure. He has been getting IV fluids with improvement in his creatinine. His baseline creatinine is between 1.6 and 2. (8) History of AAA (abdominal aortic aneurysm) repair Is this a current diagnosis for this admission?: Yes (9) Do not resuscitate Is this a current diagnosis for this admission?: Yes (10) Non-ST elevated myocardial infarction (non-STEMI) Is this a current diagnosis for this admission?: YesDiagnosis Summary: The patient had atypical chest pain yesterday that was worse with sitting and better with standing. He also was found to have ST segment depression in the anterolateral leads. His pain has resolved however he has an elevation in his troponins. Because of this we are transferring to [facility] for further cardiac evaluation. - Transfer Medications Home Medications: Acetaminophen [Tylenol] 325 mg PO ASDIR PRN 07/12/16 Albuterol Sulfate [Proair HFA] 2 puff IH Q4HP PRN 07/12/16 Amitriptyline HCl [Elavil 25 mg Tablet] 25 mg PO QHS 07/12/16 Brinzolamide/Brimonidine Tart [Simbrinza 1%-0.2% Eye Drops] 1 drop OU BID Cetirizine HCl [Zyrtec 10 mg Tablet] 1 tab PO BIDP PRN 07/12/16 Cyanocobalamin (Vitamin B-12) [Vitamin B12] 1,500 mcg PO DAILY 07/12/16 Cyclobenzaprine HCl [Flexeril 10 mg Tablet] 10 mg PO BID 07/12/16 Diltiazem HCl [Tiazac] 240 mg PO DAILY 07/12/16 Finasteride [Proscar 5 mg Tablet] 5 mg PO DAILY 07/12/16 Fluticasone Propionate [Flovent Diskus 100 mcg] 1 puff IH ASDIR PRN 07/12/16 Furosemide [Lasix] 20 mg PO ASDIR PRN 07/12/16 Hydralazine HCl [Apresoline 25 mg Tablet] 25 mg PO QHS 07/12/16 Hydralazine HCl [Apresoline 25 mg Tablet] 50 mg PO QAM 07/12/16 Levothyroxine Sodium [Synthroid] 25 mcg PO QAM 07/12/16 Levothyroxine Sodium [Synthroid] 200 mcg PO QAM 07/12/16 Losartan Potassium [Cozaar] 25 mg PO DAILY 07/12/16 Potassium Chloride 20 meq PO QAM 07/12/16 Tamsulosin HCl [Flomax 0.4 mg Cap.sr] 0.4 mg PO DAILY 07/12/16 Tramadol HCl [Ultram 50 mg Tablet] 50 mg PO BID 07/12/16 Transfer Medications: Current Medications Acetaminophen (Tylenol 325 Mg Tablet) 650 mg NG Q4HP PRN PRN Reason: FOR PAIN OR TEMP Stop: 08/11/16 14:45 Albuterol (Ventolin 0.083% Neb 2.5 Mg/3 Ml Ampul) 2.5 mg NEB RTQ6HP PRN PRN Reason: FOR WHEEZING Stop: 08/11/16 14:45 Dextrose (Dextrose Inj 50% Syringe (25 Gm/50 Ml)) 25 gm IV PRN PRN; Protocol PRN Reason: See Label Comments Stop: 08/11/16 14:45 Dextrose (Dextrose Inj 50% Syringe (25 Gm/50 Ml)) 12.5 gm IV PRN PRN; Protocol PRN Reason: FOR BG 50-69 IN ALERT PATIENT Stop: 08/11/16 14:45 Famotidine (Pepcid Inj/Pf 20 Mg/2 Ml Sdv) 20 mg IV QHS CHUCK Stop: 08/11/16 21:59 Last Admin: 07/13/16 21:30 Dose: 20 mg Glucagon (Glucagen Inj 1 Mg Vial) 1 mg SUBCUT PRN PRN; Protocol PRN Reason: Evaluate for BG < 70 Stop: 08/11/16 14:45 Glucose (Glutose 40% Gel 15 Gm Tube) 15 gm PO PRN PRN; Protocol PRN Reason: For BG 50-69 in Alert Patient Stop: 08/11/16 14:45 Glucose (Glutose 40% Gel 15 Gm Tube) 30 gm PO PRN PRN; Protocol PRN Reason: FOR BG < 50 IN ALERT PATIENT Stop: 08/11/16 14:45 Hydromorphone HCl (Dilaudid Inj/Pf 2 Mg/Ml Ampule) 1 mg IV Q2HP PRN PRN Reason: FOR PAIN Stop: 07/19/16 14:51 Last Admin: 07/14/16 06:09 Dose: 1 mg Sodium Chloride (Nacl 0.9% 1000 Ml Iv Soln) 1,000 mls @ 150 mls/hr IV CONTINUOUS PRN PRN Reason: THIS MED IS NOT "PRN" Stop: 08/11/16 14:45 Last Admin: 07/14/16 06:09 Dose: 1,000 ml Metoprolol Tartrate (Lopressor Inj/Pf 5 Mg/5 Ml Sdv) 2.5 mg IV Q6HP PRN Stop: 08/12/16 13:30 Last Admin: 07/13/16 16:55 Dose: 2.5 mg Nitroglycerin (Nitrol 2% Ointment 1gm Packet) 1 gm TP Q6 CHUCK Stop: 08/12/16 17:59 Last Admin: 07/14/16 06:09 Dose: 1 gm Ondansetron HCl (Zofran Inj/Pf 4 Mg/2 Ml Sdv) 4 mg IV Q4HP PRN PRN Reason: FOR NAUSEA/VOMITING Stop: 08/11/16 14:45 Last Admin: 07/13/16 21:30 Dose: 4 mg Pharmacy Profile Note (Medication Communication Order) 1 each [facility] .NOTICE NR Stop: 08/11/16 14:59 Phenol (Chloraseptic Sore Throat [place] 177 Ml) 2 spray PO PRN PRN Stop: 08/12/16 08:28 Last Admin: 07/13/16 23:48 Dose: 2 spray - Allergies Allergies/Adverse Reactions: iodine [Iodine] Allergy (Mild, Verified 07/12/16 08:28) itching, burning Penicillins Allergy (Mild, Verified 07/12/16 08:28) welts, nausea, nomiting - Diet/Activity Discharge Diet: Other (Comments) - Nothing by mouth Discharge Activity: Activity As Tolerated Hospital Course Hospital Course: 76-year-old gentleman with a history of partial colectomy about 15 years ago after severe diverticulitis. He also had a surgery for bowel structure possibly 5 years ago. He presented with a three-day history of crampy abdominal pain nausea and vomiting. Patient was found to have a small bowel obstruction on CT scan. Patient was admitted and made nothing by mouth and an NG tube was placed. He was evaluated by general surgery who recommended just watchful waiting. Patient has had improvement in his small bowel obstruction. Thursday the patient had a KUB that showed some questionable free air and there is concerned that he may need to go to surgery however CT scan did not show any free air and ask she showed improvement in his small bowel obstruction. Patient has moved his bowels since then and his NG tube is to be removed this morning. Yesterday afternoon the patient did experience some sharp chest pain that he described as a substernal chest pain that did not radiate. Was made worse with sitting and better with standing. An EKG was done and showed him to have significant ST segment depression in anterolateral leads. Cardiology was consulted and they recommended transfer to a tertiary care center. The patient did not want to be transferred and the decision was made to check serial cardiac enzymes and if they were positive that we will transfer otherwise we will just treat medically. The patient's first set of enzymes were negative however the last 2 enzymes have been positive. His initial troponin was 0.012 and has gotten as high as 0.455. The patient is currently chest pain-free. The possibility of this representing cardiac disease is considered. After discussion with the physicians at [facility] the possibility this representing pericarditis is also considered and is a real possibility. We will defer any further workup to the physicians at [facility]. The patient' s workup is complicated by the fact that he has chronic renal failure stage III. His baseline creatinine has ranged from 1.6-2 in the past over the last several years. When he presented this hospitalization his creatinine was 3. He has been given IV fluids while hospitalized and is improved down to 1.68 today. The patient's other medical problems were unchanged during this hospitalization. Patient is to be transferred to [facility] for further cardiac evaluation and the case was discussed with YUNI Pettit who graciously agrees to accept the patient in transfer. Physical Exam Vital Signs: Temp Pulse Resp BP Pulse Ox 98.5 F 100 18 157/82 H 98 07/14/16 08:26 07/14/16 08:26 07/14/16 08:26 07/14/16 08:26 07/14/16 08:26 Intake & Output 07/13/16 07/14/16 07/15/16 06:59 06:59 06:59 Intake Total 2627 Output Total 2900 Balance -273 Weight 75.6 kg General appearance: PRESENT: no acute distress Eye exam: PRESENT: conjunctiva pink. ABSENT: scleral icterus Mouth exam: PRESENT: moist, tongue midline Neck exam: ABSENT: JVD Respiratory exam: PRESENT: clear to auscultation brenda. ABSENT: rales, rhonchi, wheezes Cardiovascular exam: PRESENT: RRR. ABSENT: diastolic murmur, rubs, systolic murmur GI/Abdominal exam: PRESENT: normal bowel sounds, soft. ABSENT: distended, guarding, mass, organolmegaly, rebound, tenderness Extremities exam: ABSENT: calf tenderness, clubbing, pedal edema Neurological exam: PRESENT: alert, awake, oriented to person, oriented to place , oriented to time, oriented to situation, CN II-XII grossly intact. ABSENT: motor sensory deficit Psychiatric exam: PRESENT: appropriate affect Skin exam: PRESENT: dry, intact, warm. ABSENT: cyanosis, rash Results Laboratory Results: 07/14/16 06:21 07/14/16 06:21 07/14/16 07/14/16 06:21 06:21 WBC 10.0 RBC 3.75 L Hgb 11.3 L Hct 33.5 L MCV 89 MCH 30.2 MCHC 33.8 RDW 13.8 Plt Count 140 L Seg Neutrophils % 80.6 H Lymphocytes % 11.0 L Monocytes % 7.6 Eosinophils % 0.6 Basophils % 0.2 Absolute Neutrophils 8.0 Absolute Lymphocytes 1.1 Absolute Monocytes 0.8 Absolute Eosinophils 0.1 Absolute Basophils 0.0 Sodium 144.6 Potassium 4.3 Chloride 113 H Carbon Dioxide 17 L Anion Gap 15 BUN 24 H Creatinine 1.68 H Est GFR ( Amer) 48 L Est GFR (Non-Af Amer) 40 L Glucose 89 Calcium 8.8 07/13/16 07/14/16 07/14/16 19:35 02:00 06:21 Troponin I 0.029 0.081 0.455 Impressions: KUB X-Ray 07/12/16 15:00 IMPRESSION: STABLE DISTENDED LOOPS OF BOWEL COMPATIBLE WITH OBSTRUCTION. NASOGASTRIC TUBE IS NOT VISUALIZED. CORRELATE WITH CLINICAL HISTORY. Abdomen/Pelvis CT 07/13/16 00:00 IMPRESSION: RESOLVING DISTAL SMALL BOWEL OBSTRUCTION ABOVE. NO FREE AIR QUESTIONED ON PRIOR RADIOGRAPHS. Abdomen X-Ray 07/13/16 06:30 IMPRESSION: APPARENT FREE AIR UNDER THE RIGHT HEMIDIAPHRAGM IN THE SETTING OF SMALL BOWEL OBSTRUCTION CONCERNING FOR PERFORATION. CT IS AVAILABLE FOR FURTHER EVALUATION IS INDICATED. RESULTS WERE COMMUNICATED TO THE ATTENDING SURGEON DR. MEJIA AT 0903 HOURS ON 07/13/2016. Plan Discharge Plan: Patient is to be transferred to [facility]. Time Spent: Greater than 30 Minutes
--- NOTE | 2016-07-14 10:37 | PDOC PROGRESS REPORT ---
Subjective Progress Note for:: 07/14/16 Subjective:: Patient states he feels miserable; nasogastric drainage negligible. Reported flatus. Physical Exam Vital Signs: Temp Pulse Resp BP Pulse Ox 98.5 F 100 18 157/82 H 98 07/14/16 08:26 07/14/16 08:26 07/14/16 08:26 07/14/16 08:26 07/14/16 08:26 Intake & Output 07/13/16 07/14/16 07/15/16 06:59 06:59 06:59 Intake Total 1975 4821 Output Total 1850 2900 Balance 125 1921 Weight 75.3 kg 75.6 kg General appearance: PRESENT: mild distress Head exam: PRESENT: other - Nasogastric tube removed by Dr. ortega at bedside GI/Abdominal exam: PRESENT: other - Abdomen is minimally distended; there is minimal tenderness. There are no peritoneal signs. There is no rigidity. Results Laboratory Results: 07/14/16 06:21 07/14/16 06:21 07/13/16 07/14/16 07/14/16 13:04 06:21 06:21 WBC 10.0 RBC 3.75 L Hgb 11.3 L Hct 33.5 L MCV 89 MCH 30.2 MCHC 33.8 RDW 13.8 Plt Count 140 L Seg Neutrophils % 80.6 H Lymphocytes % 11.0 L Monocytes % 7.6 Eosinophils % 0.6 Basophils % 0.2 Absolute Neutrophils 8.0 Absolute Lymphocytes 1.1 Absolute Monocytes 0.8 Absolute Eosinophils 0.1 Absolute Basophils 0.0 Sodium 144.6 Potassium 4.3 Chloride 113 H Carbon Dioxide 17 L Anion Gap 15 BUN 24 H Creatinine 1.68 H Est GFR ( Amer) 48 L Est GFR (Non-Af Amer) 40 L Glucose 89 Calcium 8.8 Blood Type O POSITIVE Antibody Screen NEGATIVE 07/13/16 07/13/16 07/13/16 13:04 13:04 19:35 Creatine Kinase 51 L CK-MB (CK-2) 1.28 Troponin I < 0.012 0.029 07/14/16 07/14/16 02:00 06:21 Creatine Kinase CK-MB (CK-2) Troponin I 0.081 0.455 Impressions: KUB X-Ray 07/12/16 15:00 IMPRESSION: STABLE DISTENDED LOOPS OF BOWEL COMPATIBLE WITH OBSTRUCTION. NASOGASTRIC TUBE IS NOT VISUALIZED. CORRELATE WITH CLINICAL HISTORY. Abdomen/Pelvis CT 07/13/16 00:00 IMPRESSION: RESOLVING DISTAL SMALL BOWEL OBSTRUCTION ABOVE. NO FREE AIR QUESTIONED ON PRIOR RADIOGRAPHS. Abdomen X-Ray 07/13/16 06:30 IMPRESSION: APPARENT FREE AIR UNDER THE RIGHT HEMIDIAPHRAGM IN THE SETTING OF SMALL BOWEL OBSTRUCTION CONCERNING FOR PERFORATION. CT IS AVAILABLE FOR FURTHER EVALUATION IS INDICATED. RESULTS WERE COMMUNICATED TO THE ATTENDING SURGEON DR. MEJIA AT 0903 HOURS ON 07/13/2016. Assessment & Plan - Diagnosis (1) Small bowel obstruction Is this a current diagnosis for this admission?: YesPlan: 1. The patient is well-known to me. I have reviewed his imaging studies, and current events. 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 So this is more of a functional rather than mechanical obstruction. At this time, the patient does not appear to have clinical signs of peritonitis and does not require exploratory laparotomy. 2. Patient has elevated troponin level and is being transferred to higher level of care for further evaluation. - Time Time Spent with patient: 15-24 minutes Critical Time spent with patient: 15-24 minutes
--- NOTE | 2016-07-14 20:11 | PDOC PROGRESS REPORT ---
Subjective Progress Note for:: 07/14/16 Subjective:: Patient was seen in the morning. He looked comfortable. Patient ruled in for myocardial infarction by cardiac enzymes. Discussed that based on EKG, chest pain and positive enzymes and he did sustain a non-STEMI. Patient has been seen by hospitalist. Patient has been recommended to pursue a heart catheterization. He is currently deciding and will let the hospitalist know about his decision.. Physical Exam Vital Signs: Temp Pulse Resp BP Pulse Ox 98.5 F 106 H 15 157/82 H 100 07/14/16 08:26 07/14/16 11:20 07/14/16 11:20 07/14/16 08:26 07/14/16 11:20 Intake & Output 07/13/16 07/14/16 07/15/16 06:59 06:59 06:59 Intake Total 1975 4821 Output Total 1850 2900 Balance 125 1921 Weight 75.3 kg 75.6 kg Exam: GENERAL: well-nourished and in no acute distress. Alert and oriented x3 HEAD: Atraumatic, normocephalic. EYES: Pupils equal round and reactive to light, extraocular movements intact, sclera anicteric, conjunctiva are normal. ENT: TMs normal, nares patent, oropharynx clear without exudates. Moist mucous membranes. No oral ulcerations or bleeding gums noted NECK: supple without lymphadenopathy. Trachea is central. No cervical or axillary lymphadenopathy noted. Carotids are 2+, JVD WNL LUNGS: Respiration seems nonlabored, no significant accessory muscle action noted. Breath sounds clear to auscultation bilaterally and equal noted. No wheezes rales or rhonchi noted. No significant dullness noted on percussion. CHEST: Palpation of the chest wall shows no significant chest wall tenderness. No other significant abnormalities noted. HEART: [place] EMT B, No PSH, 1/6 RUSSELL aortic area, 1/6 mcgraw systolic murmur mitral area, no rubs, no gallops. ABDOMEN: Soft, no significant tenderness appreciated, normoactive bowel sounds. No guarding, no rebound. No rigidity noted . No masses appreciated. NG tube suctioning ongoing. EXTREMITIES: Pedal pulses are 1-2+, no calf tenderness noted. No clubbing or cyanosis.trace pedal edema noted NEUROLOGICAL: Focused neurological exam showed no significant neurologic deficit. Normal speech, no focal weakness appreciated. PSYCH: Normal mood, normal affect. Judgment and insight within normal limits. SKIN: No significant ecchymosis, rash, ulcerations or signs of pruritus noted. MUSCULOSKELETAL EXAM: No significant joint swelling noted. Results Laboratory Results: 07/14/16 06:21 07/14/16 06:21 07/13/16 07/14/16 07/14/16 13:04 06:21 06:21 WBC 10.0 RBC 3.75 L Hgb 11.3 L Hct 33.5 L MCV 89 MCH 30.2 MCHC 33.8 RDW 13.8 Plt Count 140 L Seg Neutrophils % 80.6 H Lymphocytes % 11.0 L Monocytes % 7.6 Eosinophils % 0.6 Basophils % 0.2 Absolute Neutrophils 8.0 Absolute Lymphocytes 1.1 Absolute Monocytes 0.8 Absolute Eosinophils 0.1 Absolute Basophils 0.0 Sodium 144.6 Potassium 4.3 Chloride 113 H Carbon Dioxide 17 L Anion Gap 15 BUN 24 H Creatinine 1.68 H Est GFR ( Amer) 48 L Est GFR (Non-Af Amer) 40 L Glucose 89 Calcium 8.8 Blood Type O POSITIVE Antibody Screen NEGATIVE 07/13/16 07/13/16 07/13/16 13:04 13:04 19:35 Creatine Kinase 51 L CK-MB (CK-2) 1.28 Troponin I < 0.012 0.029 07/14/16 07/14/16 02:00 06:21 Creatine Kinase CK-MB (CK-2) Troponin I 0.081 0.455 Impressions: KUB X-Ray 07/12/16 15:00 IMPRESSION: STABLE DISTENDED LOOPS OF BOWEL COMPATIBLE WITH OBSTRUCTION. NASOGASTRIC TUBE IS NOT VISUALIZED. CORRELATE WITH CLINICAL HISTORY. Abdomen/Pelvis CT 07/13/16 00:00 IMPRESSION: RESOLVING DISTAL SMALL BOWEL OBSTRUCTION ABOVE. NO FREE AIR QUESTIONED ON PRIOR RADIOGRAPHS. Abdomen X-Ray 07/13/16 06:30 IMPRESSION: APPARENT FREE AIR UNDER THE RIGHT HEMIDIAPHRAGM IN THE SETTING OF SMALL BOWEL OBSTRUCTION CONCERNING FOR PERFORATION. CT IS AVAILABLE FOR FURTHER EVALUATION IS INDICATED. RESULTS WERE COMMUNICATED TO THE ATTENDING SURGEON DR. MEJIA AT 0903 HOURS ON 07/13/2016. Assessment & Plan - Diagnosis (1) Non-STEMI (non-ST elevated myocardial infarction) Is this a current diagnosis for this admission?: Yes (2) Abnormal electrocardiogram Is this a current diagnosis for this admission?: Yes (3) Chest pain Qualifiers: Chest pain type: unspecified Qualified Code(s): R07.9 - Chest pain, unspecified Is this a current diagnosis for this admission?: Yes (4) Hypertension Qualifiers: Hypertension type: essential hypertension Qualified Code(s): I10 - Essential (primary) hypertension Is this a current diagnosis for this admission?: Yes (5) Small bowel obstruction Is this a current diagnosis for this admission?: Yes (6) Chronic kidney disease Qualifiers: Chronic kidney disease stage: stage 4 (severe) Qualified Code(s): N18.4 - Chronic kidney disease, stage 4 (severe) Is this a current diagnosis for this admission?: Yes - Notes Notes: Based on cardiac enzyme elevation, significant EKG changes and chest pain, Patient satisfies criteria for non-STEMI. I believe a early invasive strategy is preferred and did recommend Patient a heart catheterization. This was discussed with the patient. Patient family also in the room. Patient and family's questions answered. Alternatives discussed. After discussion, patient deciding whether to pursue this option or not. He was informed to relate the hospitalist no. Hypertension: Blood pressure under satisfactory control. Small bowel obstruction: This seems to have improved. Chronic kidney disease: Stable. I'm told later on that patient decided to be transferred to tertiary care for heart catheterization. - Time Time with patient: Greater than 35 minutes - CODE STATUS : was discussed, patient remains DO NOT RESUSCITATE. Surrogate decision-maker unchanged. Multiple medical problems were addressed.More than 50% of the time spent coordinating care, discussing management plans with involved caregivers. Management plans discussed with involved personnels. Medical decision making was of moderate to high complexity, patient's has multiple severe comorbidities.
--- NOTE | 2016-07-14 21:34 | EKG REPORT ---
SEVERITY:- BORDERLINE ECG - SINUS RHYTHM BORDERLINE REPOL ABNORMALITY, DIFFUSE LEADS : Confirmed by: Alexus Mclaughlin 14-Jul-2016 21:33:50
== END 2016-07-14 12:31 | disposition short-term general hospital (02) | DRG 388 ==
LOC: ER 08:17 → UNDOADMIN 14:13 → EH 14:13 → 4N 14:46 → UNDOADMIN 14:46 → EH 14:46 → 4N 16:13 → EH 16:13 → 4N 07-13 15:32 → UNDOADMIN 07-13 15:32
PROVIDERS: ADMIT Internal Medicine; ATTEND Internal Medicine
DX: K56.60 Unspecified intestinal obstruction (principal); I21.3 ST elevation (STEMI) myocardial infarction of unspecified site; N17.9 Acute kidney failure, unspecified; K57.92 Diverticulitis of intestine, part unspecified, without perforation or abscess without bleeding; Z66 Do not resuscitate; E78.5 Hyperlipidemia, unspecified; E03.9 Hypothyroidism, unspecified; I12.9 Hypertensive chronic kidney disease with stage 1 through stage 4 chronic kidney disease, or unspecified chronic kidney disease; N18.3 Chronic kidney disease, stage 3 (moderate); J44.9 Chronic obstructive pulmonary disease, unspecified; K21.9 Gastro-esophageal reflux disease without esophagitis; I25.10 Atherosclerotic heart disease of native coronary artery without angina pectoris; N40.0 Benign prostatic hyperplasia without lower urinary tract symptoms; Z90.49 Acquired absence of other specified parts of digestive tract; Z88.0 Allergy status to penicillin; Z88.8 Allergy status to other drugs, medicaments and biological substances
CPT/HCPCS: 36415; 74000; 74020; 74176; 80048; 80053; 81001; 82550; 82553; 83605; 83690; 84484; 85025; 85027; 86850; 86900; 86901; 87086; 93005; 93010; 96361; 96374; 96375; 99285; J1170; J1200; J2405; J2765; J3490; J7030; S0028

== ENCOUNTER 2016-08-13 07:57 | Emergency (ER) | payer MEDICARE, OTHER ==
[2016-08-13 08:06] VITALS: BP 147/80
--- NOTE | 2016-08-13 08:31 | ER Document Report ---
ED Animal Bite - General Mode of Arrival: Ambulatory Information source: Patient TRAVEL OUTSIDE OF THE [place] IN LAST 30 DAYS: No - HPI Patient complains to provider of: Dog Bite Location of injury: LUE - Left hand Severity of injury: Bitten Onset: Other - 08/11/2016 Type of animal: Dog - General Chief Complaint: Dog Bite Stated Complaint: RIGHT HAND DOG BITE Time Seen by Provider: 08/13/16 08:19 Notes: Patient is a 76-year-old male presenting to the emergency department accompanied by his after being bitten by a dog afternoon of Friday, August [id number]. The bite is on the patient left dorsal hand. Patient attempted to be seen in the emergency department last night, but left when he saw how busy the emergency waiting room was. Patient has an allergy to penicillin and Betadine. (SADIE CHIANG) - Related Data Allergies/Adverse Reactions: iodine [Iodine] Allergy (Mild, Verified 08/13/16 07:59) itching, burning Penicillins Allergy (Mild, Verified 08/13/16 07:59) welts, nausea, nomiting Past Medical History - General Information source: Patient - Social History Smoking Status: Never Smoker Chew tobacco use (# tins/day): No Frequency of alcohol use: None Drug Abuse: None Family History: Reviewed & Not Pertinent Patient has suicidal ideation: No Patient has homicidal ideation: No - Past Medical History Cardiac Medical History: Reports: Hx Coronary Artery Disease, Hx Heart Attack, Hx Hypercholesterolemia, Hx Hypertension Pulmonary Medical History: Reports: Hx COPD Endocrine Medical History: Reports: Hx Hypothyroidism Renal/ Medical History: Reports: Hx Benign Prostatic Hyperplasia GI Medical History: Reports: Hx Diverticulitis, Hx Gastroesophageal Reflux Disease Musculoskeltal Medical History: Reports Hx Arthritis Past Surgical History: Reports: Hx Abdominal Surgery - colectomy, Hx Appendectomy, Other - Back Surgery (Patient is unsure what type) also had a partial colectomy - Immunizations Hx Diphtheria, Pertussis, Tetanus Vaccination: No Hx Pneumococcal Vaccination: 12/07/14 Review of Systems - Review of Systems Constitutional: No symptoms reported EENT: No symptoms reported Cardiovascular: No symptoms reported Respiratory: No symptoms reported Gastrointestinal: No symptoms reported Genitourinary: No symptoms reported Male Genitourinary: No symptoms reported Musculoskeletal: No symptoms reported Skin: See HPI, Other - Dog Bite to left hand Hematologic/Lymphatic: No symptoms reported Neurological/Psychological: No symptoms reported -: Yes All other systems reviewed and negative Physical Exam - General General appearance: Appears well, Alert - HEENT Head: Normocephalic, Atraumatic Eyes: Normal Pupils: PERRL - Respiratory Respiratory status: No respiratory distress Breath sounds: Normal - Cardiovascular Rhythm: Regular Heart sounds: Normal auscultation Murmur: No - Abdominal Inspection: Normal Tenderness: Nontender - Back Back: Normal, Nontender - Extremities General upper extremity: Other - See skin exam, otherwise normal General lower extremity: Normal inspection, Nontender - Neurological Neuro grossly intact: Yes Cognition: Normal Orientation: AAOx4 Kat Coma Scale Eye Opening: Spontaneous Kat Coma Scale Verbal: Oriented Kat Coma Scale Motor: Obeys Commands [place] Coma Scale Total: 15 Speech: Normal - Psychological Associated symptoms: Normal affect, Normal mood - Skin Skin Temperature: Warm Skin Moisture: Dry Skin irregularity: other - 3 cm jagged skin tear right dorsal hand - Vital signs Vitals: Temp Pulse Resp BP Pulse Ox 97.7 F 87 16 147/80 H 100 08/13/16 07:59 08/13/16 07:59 08/13/16 07:59 08/13/16 07:59 08/13/16 07:59 Discharge - Discharge Clinical Impression: Dog bite of hand Qualifiers: Encounter type: initial encounter Laterality: right Qualified Code(s): S61.451A - Open bite of right hand, initial encounter Additional Instructions: Animal Bites: Animal bites are often heavily contaminated with bacteria. In spite of thorough cleansing and proper treatment, these wounds frequently become infected. Bite wounds of the hands are especially prone to complications. Bites are dressed, if possible. Large wounds may require suturing after internal cleansing. Because of infection risk, some large wounds must remain unstitched. Your doctor is trained to advise you on the best treatment for your bite. Call the doctor at once if the wound becomes red, swollen, warm, increasingly painful, or if it begins to drain. Danger signs also include red streaks up the involved extremity, swollen glands in the groin or under the arm , or fever and chills. The risk of rabies from domestic animals is very low. Bats, sick animals, and wild animals may expose you to rabies. The physician, or the health department, will inform you if you will need to receive the rabies vaccine. Skin Tear: Your wound is a skin tear. These wounds are difficult and sometimes impossible to suture because the skin is so fragile that it may not hold the sutures. The skin condition can be due to aging and sometimes medications. The best care for such skin tears is sometimes to not try to suture them. Rather, it is best to position the skin as closely as possible to its original location and apply a bandage that can remain in place for several days at a time and sometimes these bandages are left in place until the wound has healed. Most skin tears will heal in about two weeks. Because they are so difficult to care for, skin tears should be expected to leave some scarring. TAKE THE DOXYCYLCLINE PRESCRIBED. KEEP THE WOUND DRESSING CLEAN AND DRY. FOLLOW UP WITH YOUR DOCTOR THURSDAY FOR RECHECK. RETURN TO THE EMERGENCY ROOM IF ANY NEW OR WORSENING SYMPTOMS. Prescriptions: Doxycycline Hyclate 100 mg PO BID #10 tablet Scribe Attestation: 08/13/16 08:35 I personally performed the services described in the documentation, reviewed and edited the documentation which was dictated to the scribe in my presence, and it accurately records my words and actions. (TANYA GONZALEZ) Scribe Documentation - Scribe Written by Ignacio:: Ignacio Wesley, 08/13/2016 0842 acting as scribe for :: Stella
== END 2016-08-13 09:01 | disposition home or self-care (01) ==
LOC: ER 07:57
DX: S61.451A Open bite of right hand, initial encounter (principal); W54.0XXA Bitten by dog, initial encounter; Y93.K9 Activity, other involving animal care; Y92.810 Car as the place of occurrence of the external cause; I25.10 Atherosclerotic heart disease of native coronary artery without angina pectoris; I25.2 Old myocardial infarction; I10 Essential (primary) hypertension; J44.9 Chronic obstructive pulmonary disease, unspecified; Z88.0 Allergy status to penicillin
CPT/HCPCS: 99283

== ENCOUNTER 2016-08-13 16:19 | Emergency (ER) | payer MEDICARE, OTHER ==
--- NOTE | 2016-08-13 17:43 | ER Document Report ---
ED Wound - General Chief Complaint: Dog Bite Stated Complaint: FOLLOW UP DOG BITE Time Seen by Provider: 08/13/16 17:39 Notes: Patient is a 76-year-old male, on baby aspirin, presents with oozing from his right-handed wound where he was bitten by a dog 3 days ago. He was seen in the ER this morning and his wound was cleaned and Steri-Stripped. When he got home , the wound started oozing again and he cannot get the bleeding to stop. No injuries. TRAVEL OUTSIDE OF THE [place] IN LAST 30 DAYS: No - Related Data Allergies/Adverse Reactions: iodine [Iodine] Allergy (Mild, Verified 08/13/16 07:59) itching, burning Penicillins Allergy (Mild, Verified 08/13/16 07:59) welts, nausea, nomiting Past Medical History - General Information source: Patient - Social History Smoking Status: Former Smoker Family History: Reviewed & Not Pertinent Patient has suicidal ideation: No Patient has homicidal ideation: No - Past Medical History Cardiac Medical History: Reports: Hx Coronary Artery Disease, Hx Heart Attack, Hx Hypercholesterolemia, Hx Hypertension Pulmonary Medical History: Reports: Hx COPD Denies: Hx Asthma, Hx Bronchitis, Hx Pneumonia Neurological Medical History: Denies: Hx Cerebrovascular Accident, Hx Seizures Endocrine Medical History: Reports: Hx Hypothyroidism Renal/ Medical History: Reports: Hx Benign Prostatic Hyperplasia. Denies: Hx Peritoneal Dialysis GI Medical History: Reports: Hx Diverticulitis, Hx Gastroesophageal Reflux Disease Musculoskeltal Medical History: Reports Hx Arthritis Past Surgical History: Reports: Hx Abdominal Surgery - colectomy, Hx Appendectomy, Other - Back Surgery (Patient is unsure what type) also had a partial colectomy. Denies: Hx Pacemaker - Immunizations Hx Diphtheria, Pertussis, Tetanus Vaccination: No Hx Pneumococcal Vaccination: 12/07/14 Review of Systems - Review of Systems Notes: REVIEW OF SYSTEMS: CONSTITUTIONAL: -fevers, -chills EENT: -eye pain, -difficulty swallowing, -nasal congestion CARDIOVASCULAR:-chest pain, -syncope. RESPIRATORY: -cough, -SOB GASTROINTESTINAL: -abdominal pain, - nausea, -vomiting, -diarrhea GENITOURINARY: -dysuria, -hematuria MUSCULOSKELETAL: -back pain, -neck pain SKIN: +right hand bleeding HEMATOLOGIC: -easy bruising or bleeding. LYMPHATIC: -swollen, enlarged glands. NEUROLOGICAL: -altered mental status or loss of consciousness, -headache, - neurologic symptoms PSYCHIATRIC: -anxiety, -depression. ALL OTHER SYSTEMS REVIEWED AND NEGATIVE. Physical Exam - Vital signs Vitals: Temp Pulse Resp BP Pulse Ox 97.5 F 95 16 142/80 H 92 08/13/16 17:00 08/13/16 17:00 08/13/16 17:00 08/13/16 17:00 08/13/16 17:00 - Notes Notes: PHYSICAL EXAMINATION: GENERAL: Well-appearing, well-nourished and in no acute distress. HEAD: Atraumatic, normocephalic. EYES: Pupils equal round and reactive to light, extraocular movements intact, sclera anicteric, conjunctiva are normal. ENT: nares patent, oropharynx clear without exudates. Moist mucous membranes. NECK: Normal range of motion, supple without lymphadenopathy LUNGS: Breath sounds clear to auscultation bilaterally and equal. No wheezes rales or rhonchi. HEART: Regular rate and rhythm without murmurs ABDOMEN: Soft, nontender, normoactive bowel sounds. No guarding, no rebound. No masses appreciated. EXTREMITIES: Dorsal surface of right hand with large avulsion, 2 cm flap with small amount of active bleeding under flap. All tendons intact. NV intact distally. NEUROLOGICAL: Cranial nerves grossly intact. Normal speech, normal gait. Normal sensory and motor exams. PSYCH: Normal mood, normal affect. Course - Re-evaluation Re-evalutation: Skin flap repaired using Dermabond with cessation of bleeding. Prescribed doxycycline this morning. Instructed him to continue the antibiotic. Given strict return precautions and he understands. - Vital Signs Vital signs: Temp Pulse Resp BP Pulse Ox 97.6 F 95 16 164/82 H 100 08/13/16 18:50 08/13/16 18:50 08/13/16 18:50 08/13/16 18:50 08/13/16 18:50 Procedures - Laceration/Wound Repair Right Hand Wound length (cm): 4 Wound's Depth, Shape: Irregular, Flap Laceration pre-procedure: Shur-Clens applied Wound Repaired With: Dermabond Post-procedure wound care: Sterile dressing applied Post-procedure NV exam normal: Yes Complications: No Discharge - Discharge Clinical Impression: Bleeding from wound Condition: Stable Disposition: HOME, SELF-CARE Additional Instructions: Animal Bites Animal bites are often heavily contaminated with bacteria. In spite of thorough cleansing and proper treatment, these wounds frequently become infected. Bite wounds of the hands are especially prone to complications. Bites are dressed, if possible. Large wounds may require suturing after internal cleansing. Because of infection risk, some large wounds must remain unstitched. Your doctor is trained to advise you on the best treatment for your bite. Call the doctor at once if the wound becomes red, swollen, warm, increasingly painful, or if it begins to drain. Danger signs also include red streaks up the involved extremity, swollen glands in the groin or under the arm , or fever and chills. The risk of rabies from domestic animals is very low. Bats, sick animals, and wild animals may expose you to rabies. The physician, or the health department, will inform you if you will need to receive the rabies vaccine. Referrals: RITCHIE HENLEY MD [Primary Care Provider] - Follow up as needed
[2016-08-13 18:57] VITALS: BP 164/82
== END 2016-08-13 18:51 | disposition home or self-care (01) ==
LOC: ER 16:19
DX: S61.451A Open bite of right hand, initial encounter (principal); W54.0XXA Bitten by dog, initial encounter; I25.10 Atherosclerotic heart disease of native coronary artery without angina pectoris; I25.2 Old myocardial infarction; I10 Essential (primary) hypertension; J44.9 Chronic obstructive pulmonary disease, unspecified; Z79.82 Long term (current) use of aspirin; Z79.891 Long term (current) use of opiate analgesic; Z88.0 Allergy status to penicillin
CPT/HCPCS: 99282; 99283

== ENCOUNTER → 2017-07-17 | Outpatient (CLI) | payer MEDICARE, OTHER ==
--- NOTE | 2017-07-17 13:11 | RADIOLOGY REPORT (SQ) ---
EXAM DESCRIPTION: TIBIA FIBULA LEFT COMPLETED DATE/TIME: 07/17/2017 12:00 pm REASON FOR STUDY: LEFT LOWER TIBIA PAIN COMPARISON: None. NUMBER OF VIEWS: Two views. TECHNIQUE: Two radiographic images acquired of the left tibia and fibula to include the knee and ank le in at least one projection. LIMITATIONS: None. FINDINGS: MINERALIZATION: Normal. BONES: No acute fracture or dislocation. No worrisome bone lesions. SOFT TISSUES: Vascular calcifications. OTHER: No other significant finding. IMPRESSION: Peripheral vascular disease. No acute findings. TECHNICAL DOCUMENTATION: JOB ID: [id number] [employer]- All Rights Reserved Reading location - IP/workstation name: Unknown
== END ==
LOC: RAD 11:31
PROVIDERS: ATTEND Internal Medicine
DX: I73.9 Peripheral vascular disease, unspecified (principal); M79.605 Pain in left leg

== ENCOUNTER → 2017-09-25 | Outpatient (CLI) | payer MEDICARE, OTHER ==
--- NOTE | 2017-09-25 14:52 | RADIOLOGY REPORT (SQ) ---
EXAM DESCRIPTION: CHEST 2 VIEWS COMPLETED DATE/TIME: 09/25/2017 1:58 pm REASON FOR STUDY: EMPHYSEMA, UNSPECIFIED (J43.9) COMPARISON: Two-view chest 04/05/2015 EXAM PARAMETERS: NUMBER OF VIEWS: two views TECHNIQUE: Digital Frontal and Lateral radiographic views of the chest acquired. RADIATION DOSE: NA LIMITATIONS: none FINDINGS: LUNGS AND PLEURA: Lungs are hyperinflated from obstructive disease. No opacities, masses or pneumothorax. No pleural effusion. MEDIASTINUM AND HILAR STRUCTURES: No masses or contour abnormalities. HEART AND VASCULAR STRUCTURES: Heart normal size. No evidence for failure. BONES: Osteoporotic HARDWARE: None in the chest. OTHER: Abdominal aorta stent graft seen at the bottom edge of the field of view IMPRESSION: Obstructive disease. No acute changes TECHNICAL DOCUMENTATION: JOB ID: [id number] [employer]- All Rights Reserved Reading location - IP/workstation name: [email or web address]
== END ==
LOC: RAD 13:36
PROVIDERS: ATTEND Physician Assistant
DX: J43.9 Emphysema, unspecified (principal)
CPT/HCPCS: 71046

== ENCOUNTER 2017-10-20 11:41 | Day surgery (SDC) | payer MEDICARE, OTHER ==
[2017-10-20] MEDS ORDERED: PROPOFOL INJ 200 MG/20 ML VIAL IV ONE (13:32)
[2017-10-20] MEDS ORDERED: DIPHENHYDRAMINE HCL 50 MG/ML VIAL IV PRN (13:49)
[2017-10-20] MEDS ORDERED: MEPERIDINE HCL/PF INJ 25 MG/1 ML DISP.SYRIN IV PRN (13:49)
[2017-10-20] MEDS ORDERED: PROMETHAZINE HCL INJ 25 MG/1 ML VIAL IV PRN ×2 (13:49)
[2017-10-20] MEDS ORDERED: MORPHINE SULFATE 10 MG/ML INJ IV PRN (13:49)
[2017-10-20] MEDS ORDERED: FENTANYL CITRATE INJ/PF 100 MCG/2 ML AMPUL IV PRN ×3 (13:49)
--- NOTE | 2017-10-20 14:01 | EKG REPORT ---
SEVERITY:- ABNORMAL ECG - SINUS RHYTHM FIRST DEGREE AV BLOCK PROLONGED QT INTERVAL : Confirmed by: Rashid Mclean MD 20-Oct-2017 14:00:40
--- NOTE | 2017-10-20 14:12 | Operative Report ---
Operative Report DATE OF SURGERY: 10/20/17 Operative Report: The risks, benefits and alternatives of the procedure including risks of bleeding, perforation requiring surgery are explained to the patient in detail and informed consent is obtained. Patient is brought back to the operating room and placed in the left, lateral decubital position. Timeout was called. Propofol medication is administered. A rectal examination is done which did not reveal any masses, tears or fissures. An Olympus videoscope was inserted into the patient's rectum. It is advanced to the anastomotic site which is noted at between 25 and 30 cm. This appears to be normal. The scope was then slowly withdrawn and retroflexion maneuvers performed. The risks benefits and alternatives of the procedure explained to the patient in detail and informed consent is obtained.A GIF Olympus video scope was inserted into the patient's mouth and hypopharynx, the esophagus is identified intubated and insufflated, the scope was then advanced through the esophagus stomach and duodenum, retroflexion maneuver is done the esophagus stomach and first and second portions of the duodenum examined PREOPERATIVE DIAGNOSIS: Weight loss,. Intermittent blood in stool POSTOPERATIVE DIAGNOSIS: Small nodule noted at the anastomotic site status post biopsy. Internal hemorrhoids. Gastritis status post biopsy. Hiatal hernia OPERATION: Colonoscopy with biopsy. EGD with biopsy SURGEON: CHANCE TAYLOR ANESTHESIA: LMAC TISSUE REMOVED OR ALTERED: As noted above. COMPLICATIONS: None. ESTIMATED BLOOD LOSS: None. INTRAOPERATIVE FINDINGS: As noted above. PROCEDURE: Patient tolerated procedure well. No immediate postprocedure complications are noted. Patient is discharged in good condition. Discharge date 10/20/2017. Discharge diet: Regular. Discharge activity: Regular. 2-3 week follow-up to discuss findings. Patient is instructed call the office or proceed to the emergency room should there be any further questions or concerns Wait on the pathology.
--- NOTE | 2017-10-20 14:15 | Operative Report ---
Operative Report DATE OF SURGERY: 10/20/17 PREOPERATIVE DIAGNOSIS: Weight loss,. Intermittent blood in stool POSTOPERATIVE DIAGNOSIS: Small nodule noted at the anastomotic site status post biopsy. Internal hemorrhoids. Gastritis status post biopsy. Hiatal hernia OPERATION: Colonoscopy with biopsy. EGD with biopsy SURGEON: CHANCE TAYLOR ANESTHESIA: LMAC TISSUE REMOVED OR ALTERED: As noted above. COMPLICATIONS: None. ESTIMATED BLOOD LOSS: None. INTRAOPERATIVE FINDINGS: As noted above. PROCEDURE: Patient tolerated procedure well. No immediate postprocedure comp occasions are noted. Patient discharged in good condition. Discharge date 10/20/2017. Discharge diet: Regular. Discharge activity: Regular. 2-3-week follow-up to discuss findings. Patient is instructed call the office or proceed to the emergency room should there be any further problems or questions. Wait on the pathology.
[2017-10-20 15:45] VITALS: BP 156/80
== END 2017-10-20 15:35 | disposition home or self-care (01) ==
LOC: OROUT 11:41
PROVIDERS: ATTEND Internal Medicine Gastroenterology
DX: K64.8 Other hemorrhoids (principal); K44.9 Diaphragmatic hernia without obstruction or gangrene; K29.50 Unspecified chronic gastritis without bleeding; K63.89 Other specified diseases of intestine; K52.9 Noninfective gastroenteritis and colitis, unspecified; M19.90 Unspecified osteoarthritis, unspecified site; I10 Essential (primary) hypertension; E07.9 Disorder of thyroid, unspecified; J45.909 Unspecified asthma, uncomplicated; J43.9 Emphysema, unspecified; Z87.891 Personal history of nicotine dependence; Z79.899 Other long term (current) drug therapy; Z79.51 Long term (current) use of inhaled steroids
CPT/HCPCS: 43239; 45380; 88342 ×2; 88305 ×2; 93005; 93010; J2704; 813

== ENCOUNTER → 2017-11-16 | Outpatient (CLI) | payer MEDICARE, OTHER ==
--- NOTE | 2017-11-16 15:22 | RADIOLOGY REPORT (SQ) ---
EXAM DESCRIPTION: SMALL BOWEL SERIES COMPLETED DATE/TIME: 11/16/2017 2:08 pm REASON FOR STUDY: GENERALIZED ABD PAIN (R10.84) K91.30 POSTPROC INTESTINAL OBST, UNSP TO PARTIAL VERSUS C R10.84 GENERALIZED ABDOMINAL PAIN COMPARISON: CT abdomen pelvis 07/13/2016, 07/12/2016 FLUOROSCOPY TIME: 1 minutes 11 series of images saved to PACS. LIMITATIONS: None. PROCEDURE: Initial mica miner blasting image of abdomen acquired, followed by administration of oral contrast. Se rial radiographic images acquired. Fluoroscopic images recorded of the terminal ileum and other jamie cated areas. All images stored on PACS. FINDINGS: GREEN TIRE INSPECTOR KUB: Non-obstructive bowel pattern. No abnormal calcifications. Soft tissue planes normal. Clips right upper quadrant post cholecystectomy. Aortic stent graft. Surgical clips left upper quadrant. Bowel anastomotic vito left lower quadrant. STOMACH: Mild gastroesophageal reflux. Normal distention without abnormality. DUODENUM: Normal mucosal pattern with adequate distention. No displacement or obstruction. JEJUNUM: Normal mucosal pattern. No dilatation, segmentation, strictures or masses. ILEUM: Normal mucosal pattern. No dilatation, segmentation, strictures or masses. TERMINAL ILEUM AND ILEO-CECAL VALVE: Normal mucosal pattern without "cobble-stoning" or stricture. N ormal compression. PROXIMAL COLON: Incompletely imaged. No abnormality. OTHER: No other significant finding. IMPRESSION: NORMAL SMALL BOWEL EXAM. COMMENT: Quality ID [id number]: Final reports for procedures using fluoroscopy that document radiation exp osure indices, or exposure time and number of fluorographic images (if radiation exposure indices are not available) TECHNICAL DOCUMENTATION: JOB ID: [id number] [employer]- All Rights Reserved Reading location - IP/workstation name: [email or web address]
== END ==
LOC: RAD 08:30
PROVIDERS: ATTEND Internal Medicine Gastroenterology
DX: K91.30 Postprocedural intestinal obstruction, unspecified as to partial versus complete (principal); R10.84 Generalized abdominal pain
CPT/HCPCS: 74250

== ENCOUNTER 2018-06-13 01:55 | Inpatient (IN) | payer MEDICARE, OTHER ==
[2018-06-13] MEDS ORDERED: ALBUTEROL SULFATE 0.083% NEB 2.5 MG/3 ML AMPUL NEB ONE (02:03)
--- NOTE | 2018-06-13 02:04 | ER Document Report ---
ED General - General Stated Complaint: RESPIRATORY DISTRESS Time Seen by Provider: 06/13/18 02:00 Primary Care Provider: CHANCE TAYLOR MD [Primary Care Provider] - Follow up as needed Cannot obtain history due to: Unstable vital signs Notes: Patient is a 77-year-old male with a past medical history of essential hyper tension, hyperlipidemia, COPD, chronic kidney disease, does not use oxygen at baseline who presents with 2 days of progressively worsening shortness of breath, cough, and 2 weeks of increased bilateral lower extremity edema. Symptoms became much worse tonight prompting patient to contact 911. Patient reports that he has never had similar symptoms to this degree of severity in the past. Has not seen his primary doctor regarding today's concerns. Denies associated chest pain. Uncertain whether or not he has had fever. History is otherwise limited secondary to the degree of patient's distress. TRAVEL OUTSIDE OF THE [place] IN LAST 30 DAYS: No - Related Data Allergies/Adverse Reactions: iodine [Iodine] Allergy (Mild, Verified 08/13/16 07:59) itching, burning Penicillins Allergy (Mild, Verified 08/13/16 07:59) welts, nausea, nomiting Past Medical History - General Information source: Patient - Social History Smoking Status: Former Smoker Frequency of alcohol use: None Drug Abuse: None Lives with: Spouse/Significant other Family History: Reviewed & Not Pertinent - Past Medical History Cardiac Medical History: Reports: Hx Coronary Artery Disease, Hx Heart Attack, Hx Hypercholesterolemia, Hx Hypertension Pulmonary Medical History: Reports: Hx COPD Denies: Hx Asthma, Hx Bronchitis, Hx Pneumonia Neurological Medical History: Denies: Hx Cerebrovascular Accident, Hx Seizures Endocrine Medical History: Reports: Hx Hypothyroidism Renal/ Medical History: Reports: Hx Benign Prostatic Hyperplasia. Denies: Hx Peritoneal Dialysis GI Medical History: Reports: Hx Diverticulitis, Hx Gastroesophageal Reflux Disease Musculoskeletal Medical History: Reports Hx Arthritis Past Surgical History: Reports: Hx Abdominal Surgery - colectomy, Hx Appendectomy, Other - Back Surgery (Patient is unsure what type) also had a partial colectomy. Denies: Hx Pacemaker - Immunizations Hx Diphtheria, Pertussis, Tetanus Vaccination: No Hx Pneumococcal Vaccination: 12/07/14 Review of Systems - Review of Systems Notes: Constitutional: Negative for fever. HENT: Negative for sore throat. Eyes: Negative for visual changes. Cardiovascular: Negative for chest pain. Respiratory: Positive for shortness of breath Gastrointestinal: Negative for abdominal pain, vomiting or diarrhea. Genitourinary: Negative for dysuria. Musculoskeletal: Positive for right lower rib discomfort Skin: Negative for rash. Neurological: Negative for headaches, weakness or numbness. 10 point ROS negative except as marked above and in HPI. Physical Exam - Vital signs Vitals: Resp BP Pulse Ox 25 H 152/81 H 98 06/13/18 02:01 06/13/18 02:01 06/13/18 02:01 Interpretation: Tachycardic, Tachypneic Notes: PHYSICAL EXAMINATION: GENERAL: Somewhat frail elderly male in moderate respiratory distress HEAD: Atraumatic, normocephalic. EYES: Pupils equal round and reactive to light, extraocular movements intact, sclera anicteric, conjunctiva are normal. ENT: nares patent, oropharynx clear without exudates. Moderately dry mucous membranes. NECK: Normal range of motion, supple without lymphadenopathy LUNGS: Expiratory wheezing in all lung carlson. Diminished at the bases bilaterally much more pronounced diminishment on the right. Patient is in moderate respiratory distress breathing 30 times per minute on initial assessment with supraclavicular and intercostal retractions. HEART: Regular tachycardia without murmurs ABDOMEN: Soft, nontender, normoactive bowel sounds. No guarding, no rebound. No masses appreciated. EXTREMITIES: Normal range of motion, 4+ pitting edema in the bilateral lower extremities that is equal and symmetric. No cyanosis. NEUROLOGICAL: No focal neurological deficits. Moves all extremities spontaneously and on command. PSYCH: Normal mood, normal affect. SKIN: Warm, Dry, normal turgor, no rashes or lesions noted. Course - Re-evaluation Re-evalutation: 06/13/18 02:03 Patient presents in moderate respiratory distress. Patient has a history of COPD, but denies history of CHF currently but does have marked 4+ pitting edema in the bilateral extremities that is equal and symmetric. The patient is in moderate respiratory distress despite receiving continuous nebulizers and the field and was noted to be initially in severe respiratory distress per EMS. Patient was placed on BiPAP as his current respiratory rate remains 30 and he continues to have supraclavicular and intercostal retractions. On lung examination he has coarse expitory wheezing and diminished air movement in all lung carlson although do not appreciate rales. Will begin 2 g of IV magnesium, ongoing albuterol nebulizers, obtain labs, blood gas, chest x-ray and reassess the patient. He is in guarded condition will require frequent reassessments. 06/13/18 03:04 Patient's work of breathing is much improved on BiPAP. He continues to be very quiet at the right lung base. Chest x-ray shows a large effusion and infiltrate at the right base. CT of the chest ordered. Levofloxacin IV initiated. Laboratories do demonstrate a worsening of his baseline chronic kidney disease. Will discuss with the hospitalist for admission. 06/13/18 03:30 On reassessment patient's work of breathing continues to be improved on BiPAP. CT of the chest has been obtained results pending. I have discussed with the hospitalist Dr. Tse who has accepted the patient for admission. - Vital Signs Vital signs: Temp Pulse Resp BP Pulse Ox 22 H 152/81 H 96 06/13/18 02:10 06/13/18 02:01 06/13/18 02:10 - Laboratory Result Diagrams: 06/13/18 02:04 06/13/18 02:04 Laboratory results interpreted by me: 06/13/18 06/13/18 06/13/18 02:04 02:04 02:04 WBC 12.7 H RBC 3.61 L Hgb 11.0 L Hct 32.8 L RDW 14.3 H Absolute Eosinophils 0.7 H Sodium 136.6 L Potassium 5.5 H Carbon Dioxide 21 L BUN 37 H Creatinine 2.75 H Est GFR ( Amer) 27 L Est GFR (Non-Af Amer) 23 L Glucose 122 H ALT 14 L NT-Pro-B Natriuret Pep 1640 H Albumin 3.4 L - Diagnostic Test Radiology reviewed: Image reviewed, Reports reviewed Radiology results interpreted by me: 06/13/18 03:06 Chest x-ray: Large right pleural effusion with infiltrate at the right base Critical Care Note - Critical Care Note Total time excluding time spent on procedures (mins): 40 Comments: Critical care time spent obtaining history from patient or surrogate, discussions with consultants, development of treatment plan with patient or surrogate, evaluation of patient's response to treatment, examination of patient, ordering and performing treatments and interventions, ordering and review of laboratory studies, re-evaluation of patient's condition, ordering and review of radiographic studies Discharge - Discharge Clinical Impression: Respiratory distress, Pleural effusion, right, COPD exacerbation, Acute kidney injury superimposed on chronic kidney disease Condition: Fair Disposition: ADMITTED INPATIENT Admitting Provider: Sheryl (Hospitalist) Unit Admitted: Telemetry Referrals: CHANCE TAYLOR MD [Primary Care Provider] - Follow up as needed
[2018-06-13] MEDS: MAGNESIUM SULFATE/D5W 1 GM/100 ML RTUPB IV SCH ×2 (02:11→02:29)
[2018-06-13 02:13] LABS: ABSOLUTE BASOPHILS # (AUTO) 0.1 10^3/uL (0.0-0.2); ABSOLUTE EOSINOPHILS # (AUTO) 0.7 10^3/uL (0.0-0.6); ABSOLUTE MONOCYTES (AUTO) 0.8 10^3/uL (0.1-1.4); ABSOLUTE NEUT (AUTO) 8.2 10^3/uL (1.7-8.2); BASOPHILS % (AUTO) 0.4 % (0-2); EOSINOPHILS % (AUTO) 5.4 % (0-6); HEMATOCRIT 32.8 % (37.9-51.0); LYMPHOCYTES % (AUTO) 23.8 % (13-45); MEAN CORPUSCULAR HEMOGLOBIN 30.3 pg (27.0-33.4); MEAN CORPUSCULAR HGB CONC 33.4 g/dL (32.0-36.0); MEAN CORPUSCULAR VOLUME 91 fl (80-97); PLATELET COUNT 243 10^3/uL (150-450); RED BLOOD COUNT 3.61 10^6/uL (4.35-5.55); RED CELL DISTRIBUTION WIDTH 14.3 % (11.5-14.0); SEGMENTED NEUTROPHILS % (AUTO) 64.4 % (42-78); TOTAL CELLS COUNTED % (AUTO) 100 %; WHITE BLOOD COUNT 12.7 10^3/uL (4.0-10.5)
[2018-06-13 02:33] LABS: ALANINE AMINOTRANSFERASE 14 U/L (21-72); ALBUMIN 3.4 g/dL (3.5-5.0); ALKALINE PHOSPHATASE 101 U/L (38-126); ANION GAP 9 (5-19); ASPARTATE AMINO TRANSFERASE 20 U/L (17-59); BILIRUBIN,DIRECT 0.3 mg/dL (0.0-0.4); BILIRUBIN,TOTAL 0.5 mg/dL (0.2-1.3); BLOOD UREA NITROGEN 37 mg/dL (7-20); CALCIUM 9.5 mg/dL (8.4-10.2); CARBON DIOXIDE 21 mmol/L (22-30); CHLORIDE 107 mmol/L (98-107); GLUCOSE 122 mg/dL (75-110); POTASSIUM 5.5 mmol/L (3.6-5.0); SODIUM 136.6 mmol/L (137-145); TOTAL PROTEIN 7.4 g/dL (6.3-8.2)
[2018-06-13 02:45] LABS: NT PRO BNP 1640 pg/mL (<450); TROPONIN I < 0.012 ng/mL
[2018-06-13 02:49] LABS: VENOUS BLOOD BASE EXCESS -3.6 mmol/L; VENOUS BLOOD HCO3 22.7 mmol/L (20-32); VENOUS BLOOD PCO2 45.9 mmHg (35-63); VENOUS BLOOD PH 7.31 (7.30-7.42)
--- NOTE | 2018-06-13 03:12 | RADIOLOGY REPORT (SQ) ---
Chest single view on 06/13/2018 at 3:00 AM CLINICAL INDICATION: Shortness of breath COMPARISON: 09/25/2017 FINDINGS: There has been development of a moderate to large sized right pleural effusion. There is a small left pleural effusion. There are bibasilar opacities consistent with atelectasis and/or pneumonia. Vascular calcification is noted in the aorta. IMPRESSION: Development of right greater than left pleural effusions with adjacent bibasilar atelectasis and/or pneumonia.
[2018-06-13] MEDS ORDERED: ACETAMINOPHEN 325 MG TABLET PO PRN (03:26)
[2018-06-13] MEDS ORDERED: LEVOFLOXACIN 750 MG/D5W RTU 750 MG/150 ML RTUPB IV ONE (03:30)
[2018-06-13] MEDS ORDERED: IPRATROPIUM/ALBUTEROL 0.5-2.5 MG/3 ML AMPUL NEB SCH (03:45)
[2018-06-13] MEDS ORDERED: IPRATROPIUM/ALBUTEROL 0.5-2.5 MG/3 ML AMPUL NEB PRN ×2 (03:46→04:30)
--- NOTE | 2018-06-13 04:11 | PDOC H&P ---
History of Present Illness Admission Date/PCP: CHANCE TAYLOR MD Patient complains of: Shortness of breath History of Present Illness: EYAL ELLER is a 77 year old male with a history of multiple medical problems that will be mentioned below who presented to the emergency room with acute onset respiratory distress with cough and wheezing as well as significant dyspnea which have been worsening over the last couple of weeks with associated cold chills, nausea without vomiting or diaphoresis or chest pain or palpitations. He has been having worsening lower extremity edema as well as orthopnea and paroxysmal nocturnal dyspnea. No nausea vomiting or abdominal pain. No dysuria, hematuria or flank pain. When he came to the ER his BP was 152/81 with a pulse of 72 respiratory rate of 25 and 28, oximetry 98% on 30% FiO2. He is in significant distress he was placed on BiPAP. His labs revealed leukocytosis of 12.7 with hemoglobin of 11 hematocrit 32.8 and platelets 243. CMP was remarkable for sodium 136.6 on 521 BUN 37 And 2.75 which is higher than previous levels and blood glucose is 122. Albumin was 3.4 otherwise was normal. His proBNP was 1640. Initial troponin was less than 0.0 12 and lactic acid 0.8. The patient was given duo nebs and albuterol in the ER. He will be admitted to an IMU bed for further evaluation and management. Past Medical History Cardiac Medical History: Reports: Coronary Artery Disease, Myocardial Infarction, Hyperlipidema, Hypertension Pulmonary Medical History: Reports: Chronic Obstructive Pulmonary Disease (COPD) Denies: Asthma, Bronchitis, Pneumonia Neurological Medical History: Denies: Seizures Endocrine Medical History: Reports: Hypothyroidism GI Medical History: Reports: Diverticulitis, Gastroesophageal Reflux Disease Musculoskeltal Medical History: Reports: Arthritis Hematology: Denies: Anemia Past Surgical History Past Surgical History: Reports: Appendectomy, Other - Back Surgery (Patient is unsure what type) also had a partial colectomy Denies: Pacemaker Social History Lives with: Spouse/Significant other Smoking Status: Former Smoker Frequency of Alcohol Use: None Hx Recreational Drug Use: No Drugs: None Hx Prescription Drug Abuse: No Family History Parental Family History Reviewed: Yes Children Family History Reviewed: Yes Sibling(s) Family History Reviewed.: Yes Medication/Allergy Home Medications: Albuterol Sulfate [Proair HFA] 2 puff IH Q4HP PRN 07/12/16 Amitriptyline HCl [Elavil 25 mg Tablet] 25 mg PO QHS 07/12/16 Cyanocobalamin (Vitamin B-12) [Vitamin B12] 1,500 mcg PO DAILY 07/12/16 Diltiazem HCl [Tiazac] 240 mg PO BID 07/12/16 Hydralazine HCl [Apresoline 25 mg Tablet] 25 mg PO QHS 07/12/16 Levothyroxine Sodium [Synthroid] 25 mcg PO QAM 07/12/16 Levothyroxine Sodium [Synthroid] 200 mcg PO QAM 07/12/16 Tamsulosin HCl [Flomax 0.4 mg Cap.sr] 0.4 mg PO DAILY 07/12/16 Carvedilol [Coreg 12.5 mg Tablet] 12.5 mg PO Q12 06/13/18 Losartan Potassium [Cozaar 25 mg Tablet] 25 mg PO BID 06/13/18 Pantoprazole Sodium [Protonix [address] Tablet] 20 mg PO QAM 06/13/18 RX: Rosuvastatin Calcium 5 mg PO DAILY 06/13/18 Allergies/Adverse Reactions: iodine [Iodine] Allergy (Mild, Verified 08/13/16 07:59) itching, burning Penicillins Allergy (Mild, Verified 08/13/16 07:59) welts, nausea, nomiting Review of Systems Review of Systems: As per history of present illness. All pertinent systems were reviewed above. Constitutional, HEENT, cardiovascular, respiratory, GI, , musculoskeletal, neuro, psychiatric, endocrine, integumentary and hematologic systems were reviewed and are otherwise negative/unremarkable except for positive findings mentioned above in the HPI. Physical Exam Vital Signs: Temp Pulse Resp BP Pulse Ox 22 H 152/81 H 96 06/13/18 02:10 06/13/18 02:01 06/13/18 02:10 Intake & Output 06/11/18 06/12/18 06/13/18 06:59 06:59 06:59 Intake Total 130 Balance 130 Exam: Generally: Pleasant elderly somnolent male on BiPAP with no current distress Vital signs-as listed Head - atraumatic, normocephalic. Pupils - equal, round and reactive to light and accommodation. Extraocular movements are intact. No scleral icterus. Oropharynx - moist mucous membranes and tongue. No pharyngeal erythema or e xudate. Neck - supple. No JVD. Carotid pulses 2+ bilaterally. No carotid bruits. No palpable thyromegaly or lymphadenopathy. Cardiovascular - regular rate and rhythm. Normal S1 and S2. No murmurs, gallops or rubs. Lungs -diminished bibasilar breath sounds more on the right with residual extremity wheezes slightly masticatory airflow Abdomen - soft and nontender. Positive bowel sounds. No palpable organomegaly or masses. Extremities -2+ bilateral lower extremity pitting edema, with no clubbing or cyanosis. Neuro - grossly non-focal. Skin - no rashes. and rectal exam - deferred. Results Laboratory Results: 06/13/18 02:04 06/13/18 02:04 06/13/18 06/13/18 06/13/18 02:04 02:04 02:43 WBC 12.7 H RBC 3.61 L Hgb 11.0 L Hct 32.8 L MCV 91 MCH 30.3 MCHC 33.4 RDW 14.3 H Plt Count 243 Seg Neutrophils % 64.4 Lymphocytes % 23.8 Monocytes % 6.0 Eosinophils % 5.4 Basophils % 0.4 Absolute Neutrophils 8.2 Absolute Lymphocytes 3.0 Absolute Monocytes 0.8 Absolute Eosinophils 0.7 H Absolute Basophils 0.1 VBG pH VBG pCO2 VBG HCO3 VBG Base Excess Sodium 136.6 L Potassium 5.5 H Chloride 107 Carbon Dioxide 21 L Anion Gap 9 BUN 37 H Creatinine 2.75 H Est GFR ( Amer) 27 L Est GFR (Non-Af Amer) 23 L Glucose 122 H Lactic Acid 0.8 Calcium 9.5 Total Bilirubin 0.5 AST 20 ALT 14 L Alkaline Phosphatase 101 Total Protein 7.4 Albumin 3.4 L 06/13/18 02:43 WBC RBC Hgb Hct MCV MCH MCHC RDW Plt Count Seg Neutrophils % Lymphocytes % Monocytes % Eosinophils % Basophils % Absolute Neutrophils Absolute Lymphocytes Absolute Monocytes Absolute Eosinophils Absolute Basophils VBG pH 7.31 VBG pCO2 45.9 VBG HCO3 22.7 VBG Base Excess -3.6 Sodium Potassium Chloride Carbon Dioxide Anion Gap BUN Creatinine Est GFR ( Amer) Est GFR (Non-Af Amer) Glucose Lactic Acid Calcium Total Bilirubin AST ALT Alkaline Phosphatase Total Protein Albumin 06/13/18 02:04 Troponin I < 0.012 NT-Pro-B Natriuret Pep 1640 H Impressions: Chest X-Ray 04/07/19 02:00 IMPRESSION: Development of right greater than left pleural effusions with adjacent bibasilar atelectasis and/or pneumonia. Assessment and Plan - Diagnosis (1) Acute respiratory failure Is this a current diagnosis for this admission?: Yes Plan: The patient will be admitted to an IMU bed. He will be continued on BiPAP. Management as below (2) COPD exacerbation Is this a current diagnosis for this admission?: Yes Plan: The patient will be placed on IV steroid therapy with IV Solu-Medrol as well as nebulized bronchodilator therapy with duonebs q.i.d. and q.4 hours p.r.n., mucolytic therapy with Mucinex and antibiotic therapy with IV Levaquin sputum Gram stain culture and sensitivity will be obtained. O2 protocol will be followed. (3) Cor pulmonale Is this a current diagnosis for this admission?: Yes Plan: We will place him on diuresis with IV Lasix. This could be related to right- sided heart failure. (4) Community acquired pneumonia Is this a current diagnosis for this admission?: Yes Plan: The patient will be admitted to a medically monitored bed for community-acquired pneumonia and will be placed on IV Levaquin. Mucolytic therapy be provided as well as duo nebs q.i.d. and q.4 hours p.r.n.. Sputum Gram stain culture and sensitivity will be obtained. Will follow Blood Cultures. (5) Acute kidney injury superimposed on chronic kidney disease Is this a current diagnosis for this admission?: Yes Plan: This could be prerenal from cor pulmonale. Will follow renal functions with diuresis. We will hold off Cozaar and follow BMP (6) Hypothyroidism Is this a current diagnosis for this admission?: Yes Plan: Check TSH and continue Synthroid (7) DVT prophylaxis Is this a current diagnosis for this admission?: Yes Plan: Sub cutaneous Lovenox - Time Within: within 72 hours - Inpatient Certification Medical Necessity: Significant Comorbidiites Make Outpatient Treatment Too Risky, Need for IV Antibiotics, Risk of Complication if Not Cared For in Hospital - Plan Summary Plan Summary: The plan of care was discussed in details with the patient's I answered all questions. She agreed to proceed with the above-mentioned plan. The patient is Full code per his . This note was created by [employer] software and may contain typo errors that may have not been proofread.
--- NOTE | 2018-06-13 04:23 | RADIOLOGY REPORT (SQ) ---
EXAM DESCRIPTION: CT CHEST WITHOUT IV CONTRAST COMPLETED DATE/TME: 06/13/2018 03:03 CLINICAL HISTORY: 77 years Male, large right pleural effusion Comparison: CR, September 2017 Technique: No contrast. Coronal and sagittal reformat. This exam was performed according to our departmental dose-optimization program, which includes automated exposure control, adjustment of the mA and/or kV according to patient size and/or use of iterative reconstruction technique. [facility]: Dose Right [facility]: CareDose [facility]: Dose Right [facility]: Teradose 4D [facility]: I Just Shared LIMITATIONS: None Findings: Moderate right pleural effusion. Small left pleural effusion. Moderate consolidation of the right lower lobe and lower right middle lobe. Small consolidation of the left lower lobe. Small pericardial fluid. Coronary arterial calcification/stent. Atherosclerotic vascular disease. Abdominal aortic graft partially imaged at the upper abdomen. 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 Unenhanced inferior neck, axillae, mediastinum, lungs, airway, lymphatics, heart, vasculature, upper abdomen, and musculoskeleton appear otherwise unremarkable. Impression: Moderate bilateral lower lobar pneumonia and small moderate bilateral pleural effusions, right more than left. Recommend CR/CT surveillance including at 7-12 weeks following initiation of any clinically warranted therapy.
[2018-06-13] MEDS: METHYLPREDNISOLONE INJ 40 MG/1 ML SDV IV SCH ×3 (05:26→21:42)
[2018-06-13] MEDS: PANTOPRAZOLE SODIUM 20 MG TABLET.DR PO SCH (05:27)
[2018-06-13] MEDS ORDERED: LEVOTHYROXINE SODIUM 0.1 MG TABLET PO SCH (06:00)
[2018-06-13 08:20] LABS: ABSOLUTE LYMPHOCYTES (AUTO) 0.6 10^3/uL (0.5-4.7); ABSOLUTE NEUT (AUTO) 8.2 10^3/uL (1.7-8.2); BASOPHILS % (AUTO) 0.2 % (0-2); EOSINOPHILS % (AUTO) 0.3 % (0-6); HEMATOCRIT 34.8 % (37.9-51.0); HEMOGLOBIN 11.7 g/dL (13.5-17.0); LYMPHOCYTES % (AUTO) 6.7 % (13-45); MEAN CORPUSCULAR HEMOGLOBIN 30.5 pg (27.0-33.4); MEAN CORPUSCULAR HGB CONC 33.7 g/dL (32.0-36.0); MEAN CORPUSCULAR VOLUME 90 fl (80-97); MONOCYTES % (AUTO) 0.5 % (3-13); PLATELET COUNT 210 10^3/uL (150-450); RED BLOOD COUNT 3.85 10^6/uL (4.35-5.55); RED CELL DISTRIBUTION WIDTH 14.4 % (11.5-14.0); SEGMENTED NEUTROPHILS % (AUTO) 92.3 % (42-78); TOTAL CELLS COUNTED % (AUTO) 100 %; WHITE BLOOD COUNT 8.9 10^3/uL (4.0-10.5)
[2018-06-13 08:35] LABS: ANION GAP 10 (5-19); BLOOD UREA NITROGEN 37 mg/dL (7-20); CALCIUM 8.9 mg/dL (8.4-10.2); CARBON DIOXIDE 21 mmol/L (22-30); CHLORIDE 105 mmol/L (98-107); GLUCOSE 158 mg/dL (75-110); POTASSIUM 5.7 mmol/L (3.6-5.0); SODIUM 135.6 mmol/L (137-145)
--- NOTE | 2018-06-13 09:46 | EKG REPORT ---
SEVERITY:- ABNORMAL ECG - SINUS RHYTHM LOW VOLTAGE IN FRONTAL LEADS PROBABLE LVH WITH SECONDARY REPOL ABNRM OLD ANTEROSEPTAL VA : Confirmed by: Rashid Mclean MD 13-Jun-2018 09:46:13
[2018-06-13] MEDS ORDERED: DILTIAZEM HCL 90 MG TABLET PO SCH (10:00)
[2018-06-13] MEDS ORDERED: FUROSEMIDE INJ/PF 40 MG/4 ML SDV IV SCH (10:00)
[2018-06-13] MEDS ORDERED: FUROSEMIDE INJ/PF 40 MG/4 ML SDV IV ONE (10:59)
[2018-06-13] MEDS ORDERED: SODIUM POLYSTYRENE SULFONATE 15 GM/60 ML PO ONE (11:00)
[2018-06-13] MEDS ORDERED: FUROSEMIDE INJ/PF 100 MG/10 ML SDV ONE (11:01)
[2018-06-13] MEDS: TAMSULOSIN HCL 0.4 MG CAP.SR.24H PO SCH (11:13)
[2018-06-13] MEDS: FAMOTIDINE 20 MG TABLET PO SCH ×2 (11:13→21:42)
[2018-06-13] MEDS: CYANOCOBALAMIN (VITAMIN B-12) 1,000 MCG TABLET PO SCH (11:13)
[2018-06-13] MEDS: CARVEDILOL 12.5 MG TABLET PO SCH ×2 (11:13→21:42)
[2018-06-13] MEDS: GUAIFENESIN 600 MG TABLET.SA PO SCH ×2 (11:14→21:42)
[2018-06-13] MEDS ORDERED: INSULIN LISPRO 100 UNIT/ML 3 ML VIAL IV ONE ×2 (11:26→15:00)
--- NOTE | 2018-06-13 11:29 | RADIOLOGY REPORT (SQ) ---
EXAM DESCRIPTION: CHEST SINGLE VIEW COMPLETED DATE/TIME: 06/13/2018 11:10 am REASON FOR STUDY: sudden onset sob/cp COMPARISON: Earlier same day. NUMBER OF VIEWS: One view. TECHNIQUE: Single frontal radiographic image of the chest acquired. LIMITATIONS: None. FINDINGS: LUNGS AND PLEURA: Moderate right pleural effusion and associated airspace disease. Much s maller left pleural effusion. No significant change. MEDIASTINUM AND HEART: Stable heart size and mediastinal structures. BONY STRUCTURES: No acute findings. HARDWARE: None. OTHER: No other significant finding. IMPRESSION: No significant change. No pneumothorax. TECHNICAL DOCUMENTATION: JOB ID: [id number] Reading location - IP/workstation name: [email or web address]
[2018-06-13] MEDS ORDERED: DEXTROSE 50%-WATER 25 GM/50 ML DISP.SYRIN IV ONE ×2 (11:32→15:00)
[2018-06-13] MEDS ORDERED: FUROSEMIDE INJ/PF 20 MG/2 ML SDV IV ONE (11:45)
[2018-06-13 12:30] LABS: APPEARANCE,URINE CLEAR; BILIRUBIN,URINE NEGATIVE (NEGATIVE); COLOR,URINE YELLOW; GLUCOSE, URINE NEGATIVE (NEGATIVE); KETONES,URINE NEGATIVE (NEGATIVE); LEUKOCYTE ESTERASE,URINE NEGATIVE (NEGATIVE); NITRITE,URINE NEGATIVE (NEGATIVE); PROTEIN,URINE NEGATIVE (NEGATIVE); URINE SPECIFIC GRAVITY 1.009; UROBILINOGEN,URINE NEGATIVE mg/dL (<2.0)
[2018-06-13] MEDS ORDERED: DILTIAZEM HCL 60 MG TABLET PO SCH (13:00)
[2018-06-13] MEDS ORDERED: DIPHENHYDRAMINE HCL 50 MG/ML VIAL ONE (14:50)
[2018-06-13 15:13] LABS: URINE CREATININE 53.8 mg/dL (22-328)
[2018-06-13 15:25] LABS: FREE T3 2.48 pg/mL (2.77-5.27); FREE T4 (FREE THYROXINE) 1.51 ng/dL (0.78-2.19)
[2018-06-13] MEDS: DILTIAZEM HCL 60 MG TABLET PO ONE ×2 (15:33→19:35)
[2018-06-13] MEDS: ENOXAPARIN SODIUM INJ 40 MG/0.4 ML DISP.SYRIN SUBCUT SCH (15:36)
[2018-06-13] MEDS ORDERED: PATIROMER 8.4 GM SUSP PACKET PO SCH (17:00)
--- NOTE | 2018-06-13 17:24 | Progress Note ---
Provider Note Provider Note: 77 y.o. M with a PMH of CAD, IA, HLD, COPD presented with acute respiratory failure. CXR reveals RLL PNA and surrounding effusion. At approximately 10:30 AM, nursing staff called with concerns about patient's respiratory status. The patient reported experiencing significant right-sided pain and dyspnea. Stat CXR reveals interval development of the right effusion. Patient is currently being treated with IV Levaquin for community-acquired pneumonia. Ordered a one- time dose of 60 mg Lasix IV. 1. Acute respiratory failure: secondary to COPD exacerbation stemming from PNA and b/l pleural effusions. Treated with antibiotics for PNA and diuresis for effusions. Will check CXR in AM if patient is still short of breath. Increased lasix from 40mg IV daily to 40mg IV BID. 2. COPD exacerbation: Scheduled duo nebs, scheduled IV Solu-Medrol, twice daily Mucinex, antibiotic coverage 3. PNA: Community acquired, IV Levaquin 4. Acute on chronic kidney disease: Possibly prerenal. Checking FeNa. Plan for diuresis of pulmonary effusion. Trend daily chemistries. Will consult nephrology. 5. HYPOthyroidism: TSH elevated to 34, T3 and free T4 are pending. Continue daily Synthroid, may need to make dose adjustments
[2018-06-13] MEDS ORDERED: LEVOFLOXACIN 750 MG/D5W RTU 750 MG/150 ML RTUPB IV SCH (18:00)
[2018-06-13] MEDS: FUROSEMIDE INJ/PF 40 MG/4 ML SDV IV SCH (19:35)
[2018-06-13] MEDS: IPRATROPIUM/ALBUTEROL 0.5-2.5 MG/3 ML AMPUL NEB SCH (19:51)
[2018-06-13] MEDS: DILTIAZEM HCL 240 MG CAPSULE.CR PO SCH (21:41)
[2018-06-13] MEDS: ATORVASTATIN CALCIUM 10 MG TABLET PO SCH (21:41)
[2018-06-13] MEDS: HYDRALAZINE HCL 25 MG TABLET PO SCH (21:41)
[2018-06-13] MEDS ORDERED: DILTIAZEM HCL 240 MG CAPSULE.CR PO SCH (22:00)
[2018-06-13] MEDS ORDERED: (PENDING PHARMACY ID) (Brinzolamide/Brimonidine Tart [Simbrinza 1%-0.2% Eye Drops] 1 DROP) OS SCH (22:00)
[2018-06-13] MEDS ORDERED: ONDANSETRON HCL INJ/PF 4 MG/2 ML SDV IV PRN (22:26)
[2018-06-14] MEDS: IPRATROPIUM/ALBUTEROL 0.5-2.5 MG/3 ML AMPUL NEB SCH ×4 (01:32→19:42)
[2018-06-14] MEDS: METHYLPREDNISOLONE INJ 40 MG/1 ML SDV IV SCH (05:03)
[2018-06-14] MEDS: PANTOPRAZOLE SODIUM 20 MG TABLET.DR PO SCH (05:03)
[2018-06-14 05:57] LABS: ABSOLUTE MONOCYTES (AUTO) 0.2 10^3/uL (0.1-1.4); ABSOLUTE NEUT (AUTO) 13.5 10^3/uL (1.7-8.2); BASOPHILS % (AUTO) 0.1 % (0-2); HEMATOCRIT 31.5 % (37.9-51.0); HEMOGLOBIN 10.5 g/dL (13.5-17.0); MEAN CORPUSCULAR HEMOGLOBIN 29.9 pg (27.0-33.4); MEAN CORPUSCULAR HGB CONC 33.5 g/dL (32.0-36.0); MEAN CORPUSCULAR VOLUME 89 fl (80-97); MONOCYTES % (AUTO) 1.4 % (3-13); PLATELET COUNT 214 10^3/uL (150-450); RED BLOOD COUNT 3.53 10^6/uL (4.35-5.55); RED CELL DISTRIBUTION WIDTH 13.9 % (11.5-14.0); SEGMENTED NEUTROPHILS % (AUTO) 91.5 % (42-78); TOTAL CELLS COUNTED % (AUTO) 100 %; WHITE BLOOD COUNT 14.8 10^3/uL (4.0-10.5)
[2018-06-14] MEDS ORDERED: LEVOFLOXACIN 750 MG/D5W RTU 750 MG/150 ML RTUPB IV SCH (06:00)
[2018-06-14 06:15] LABS: ANION GAP 8 (5-19); BLOOD UREA NITROGEN 40 mg/dL (7-20); CARBON DIOXIDE 21 mmol/L (22-30); CHLORIDE 106 mmol/L (98-107); GLUCOSE 145 mg/dL (75-110); SODIUM 135.4 mmol/L (137-145)
[2018-06-14 06:23] LABS: POTASSIUM 4.7 mmol/L (3.6-5.0)
[2018-06-14] MEDS ORDERED: (PENDING PHARMACY ID) (Brinzolamide/Brimonidine Tart [Simbrinza 1%-0.2% Eye Drops] 1 DROP) OD SCH (10:00)
[2018-06-14] MEDS: ASPIRIN 81 MG TABLET, ENT COATED PO SCH (10:28)
[2018-06-14] MEDS: FERROUS SULFATE 325 MG TABLET PO SCH (10:28)
[2018-06-14] MEDS: TAMSULOSIN HCL 0.4 MG CAP.SR.24H PO SCH (10:28)
[2018-06-14] MEDS: GUAIFENESIN 600 MG TABLET.SA PO SCH ×2 (10:28→21:07)
[2018-06-14] MEDS: FAMOTIDINE 20 MG TABLET PO SCH ×2 (10:28→21:07)
[2018-06-14] MEDS: CYANOCOBALAMIN (VITAMIN B-12) 1,000 MCG TABLET PO SCH ×2 (10:28→10:29)
[2018-06-14] MEDS: DILTIAZEM HCL 240 MG CAPSULE.CR PO SCH ×2 (10:28→21:07)
[2018-06-14] MEDS: CARVEDILOL 12.5 MG TABLET PO SCH ×2 (10:28→21:07)
[2018-06-14] MEDS: FUROSEMIDE INJ/PF 40 MG/4 ML SDV IV SCH ×2 (10:29→20:26)
--- NOTE | 2018-06-14 15:58 | PDOC PROGRESS REPORT ---
Subjective Progress Note for:: 06/14/18 Subjective:: 77 y.o. M with a PMH of CAD, [place], HLD, COPD presented with acute respiratory failure. CXR reveals RLL PNA and surrounding effusion. Effusion increased in size yesterday, he was diuresed with BID lasix. Today (based on I&O) the patient is -2L. Patient reports improved dyspnea but still endorses mild shortness of breath. Lungs are clear to auscultation, slightly diminished in the RLL. SPO2 is > 90% on room air. CXR today shows worsening effusion, despite diuresis. Plan for radiology guided thoracentesis to drain effusion and echocardiogram to evaluate CHF. Reason For Visit: PNEUMONIA,COPD EXACERBATION,ACUTE KIDNEY INJURY Physical Exam Vital Signs: Temp Pulse Resp BP Pulse Ox 97.5 F 95 20 119/71 92 06/14/18 08:14 06/14/18 08:14 06/14/18 08:14 06/14/18 08:14 06/14/18 08:14 Intake & Output 06/13/18 06/14/18 06/15/18 06:59 06:59 06:59 Intake Total 130 1200 Output Total 3325 Balance 130 -2125 Weight 66.7 kg 66.7 kg General appearance: PRESENT: thin Eye exam: PRESENT: conjunctiva pink, PERRLA Mouth exam: PRESENT: tongue midline Teeth exam: PRESENT: poor dentation Neck exam: PRESENT: full ROM Respiratory exam: PRESENT: clear to auscultation brenda, decreased breath sounds - RLL, symmetrical, unlabored. ABSENT: crackles, rhonchi, wheezes Cardiovascular exam: PRESENT: RRR Pulses: PRESENT: normal radial pulses, normal dorsalis pedis pul Vascular exam: PRESENT: normal capillary refill GI/Abdominal exam: PRESENT: distended - very slight distention, normal bowel nisreen nds, soft. ABSENT: tenderness Rectal exam: PRESENT: deferred Extremities exam: PRESENT: full ROM Musculoskeletal exam: PRESENT: ambulatory, full ROM Neurological exam: PRESENT: alert, awake, oriented to person, oriented to place, oriented to time, oriented to situation Psychiatric exam: PRESENT: appropriate affect Skin exam: PRESENT: dry, intact, normal color Results Laboratory Results: 06/14/18 04:42 06/14/18 04:42 06/13/18 06/13/18 06/14/18 08:08 11:55 04:42 WBC RBC Hgb Hct MCV MCH MCHC RDW Plt Count Seg Neutrophils % Lymphocytes % Monocytes % Eosinophils % Basophils % Absolute Neutrophils Absolute Lymphocytes Absolute Monocytes Absolute Eosinophils Absolute Basophils Sodium 135.4 L Potassium 4.7 D Chloride 106 Carbon Dioxide 21 L Anion Gap 8 BUN 40 H Creatinine 2.41 H Est GFR ( Amer) 32 L Est GFR (Non-Af Amer) 26 L Glucose 145 H Calcium 9.0 Magnesium 2.4 H Free T4 1.51 Free T3 pg/mL 2.48 L Urine Color YELLOW Urine Appearance CLEAR Urine pH 5.0 Ur Specific [place] 1.009 Urine Protein NEGATIVE Urine Glucose (UA) NEGATIVE Urine Ketones NEGATIVE Urine Blood NEGATIVE Urine Nitrite NEGATIVE Ur Leukocyte Esterase NEGATIVE Urine WBC (Auto) 0 Urine RBC (Auto) 2 06/14/18 04:42 WBC 14.8 H RBC 3.53 L Hgb 10.5 L Hct 31.5 L MCV 89 MCH 29.9 MCHC 33.5 RDW 13.9 Plt Count 214 Seg Neutrophils % 91.5 H Lymphocytes % 7.0 L Monocytes % 1.4 L Eosinophils % 0.0 Basophils % 0.1 Absolute Neutrophils 13.5 H Absolute Lymphocytes 1.0 Absolute Monocytes 0.2 Absolute Eosinophils 0.0 Absolute Basophils 0.0 Sodium Potassium Chloride Carbon Dioxide Anion Gap BUN Creatinine Est GFR ( Amer) Est GFR (Non-Af Amer) Glucose Calcium Magnesium Free T4 Free T3 pg/mL Urine Color Urine Appearance Urine pH Ur Specific [place] Urine Protein Urine Glucose (UA) Urine Ketones Urine Blood Urine Nitrite Ur Leukocyte Esterase Urine WBC (Auto) Urine RBC (Auto) 06/13/18 02:04 Troponin I < 0.012 NT-Pro-B Natriuret Pep 1640 H Impressions: Chest X-Ray 06/13/18 10:31 IMPRESSION: No significant change. No pneumothorax. Status: Imported from PACS Assessment and Plan - Diagnosis (1) Acute respiratory failure Is this a current diagnosis for this admission?: Yes Plan: Symptomatic improvement, patient reports improving dyspnea and was able to wean from supplemental oxygen However, CXR today shows worsening right pleural effusion Secondary to COPD exacerbation stemming from PNA and b/l pleural effusions. Treated with antibiotics for PNA and diuresis for effusions. Increased lasix from 40mg IV daily to 40mg IV BID yesterday Patient does not wear home O2, does not require supplemental O2 at this time, SPO2>90% on RA (2) Acute kidney injury superimposed on chronic kidney disease Is this a current diagnosis for this admission?: Yes Plan: Improving 2.7-->2.41 Patient's baseline Creatinine 1.5 FeNa 1.46% GAGANDEEP less likely to be prerenal, possibly worsening CHF Trend daily chemistries. Nephrology has been consulted, appreciate recommendations (3) COPD exacerbation Is this a current diagnosis for this admission?: Yes Plan: Scheduled duo nebs, scheduled IV Solu-Medrol, twice daily Mucinex, antibiotic coverage Supplemental O2 for SPO2 > 88% (4) Community acquired pneumonia Is this a current diagnosis for this admission?: Yes Plan: As seen on CXR and CT scan Treated with IV Levaquin Worsening leukocytosis 8-->14 Remains afebrile Able to wean from supplemental O2 today (5) Hypothyroidism Is this a current diagnosis for this admission?: Yes Plan: TSH elevated to 34 Low T3 normal T4 Patient already on Synthroid 225mcg daily Increased dose to 250mcg daily Will need to follow up with PCP for TSH monitoring (6) Pleural effusion Is this a current diagnosis for this admission?: Yes Plan: R sided pleural effusion Likely secondary to CHF, BNP 1650 (no previous results to compare) Attempted to treat with diuresis, but effusion is only getting worse Plan for radiology guided thoracentesis - Time Time Spent with patient: 15-24 minutes Medications reviewed and adjusted accordingly: Yes Anticipated discharge: Home Within: within 36 hours - Inpatient Certification Based on my medical assessment, after consideration of the patient's comorbidities, presenting symptoms, or acuity I expect that the services needed warrant INPATIENT care.: Yes I certify that my determination is in accordance with my understanding of Medicare's requirements for reasonable and necessary INPATIENT services [42 CFR 412.3e].: Yes Medical Necessity: Risk of Complication if Not Cared For in Hospital
[2018-06-14] MEDS: POLYETHYLENE GLYCOL 3350 POWDER 17 GM/1 PACKET PO SCH (16:17)
[2018-06-14] MEDS: FLUTICASONE NASAL SPRAY 50 MCG/SPRY 120 SPRAY/16 GM NASL SCH ×2 (16:17→21:08)
[2018-06-14] MEDS: ENOXAPARIN SODIUM INJ 40 MG/0.4 ML DISP.SYRIN SUBCUT SCH (16:18)
--- NOTE | 2018-06-14 16:19 | RADIOLOGY REPORT (SQ) ---
EXAM DESCRIPTION: CHEST SINGLE VIEW COMPLETED DATE/TIME: 06/14/2018 2:57 pm REASON FOR STUDY: sob.dyspnea COMPARISON: 06/13/2018 EXAM PARAMETERS: NUMBER OF VIEWS: One view. TECHNIQUE: Single frontal radiographic view of the chest acquired. RADIATION DOSE: NA LIMITATIONS: None. FINDINGS: LUNGS AND PLEURA: Persistent right pleural effusion. Minimal left pleural effusion. Bhavani hilar opacification on the right appears more prominent. MEDIASTINUM AND HILAR STRUCTURES: No masses. Contour normal. HEART AND VASCULAR STRUCTURES: Heart size is borderline. BONES: No acute findings. HARDWARE: None in the chest. OTHER: No other significant finding. IMPRESSION: Borderline cardiomegaly. Right pleural effusion with minimal left pleural effusion. Ca nnot exclude a perihilar pneumonia on the right. TECHNICAL DOCUMENTATION: JOB ID: [id number] [employer]- All Rights Reserved Reading location - IP/workstation name: [email or web address]
[2018-06-14] MEDS: METHYLPREDNISOLONE INJ 125 MG/2 ML SDV IV SCH ×2 (16:33→21:07)
[2018-06-14] MEDS ORDERED: FUROSEMIDE INJ/PF 20 MG/2 ML SDV IV ONE (21:00)
[2018-06-14] MEDS: ATORVASTATIN CALCIUM 10 MG TABLET PO SCH (21:07)
[2018-06-14] MEDS: HYDRALAZINE HCL 25 MG TABLET PO SCH (21:07)
[2018-06-15] MEDS: ALPRAZOLAM 0.25 MG TABLET PO PRN (00:05)
[2018-06-15] MEDS: IPRATROPIUM/ALBUTEROL 0.5-2.5 MG/3 ML AMPUL NEB SCH ×5 (01:50→20:50)
[2018-06-15] MEDS: LEVOTHYROXINE SODIUM 0.05 MG TABLET PO SCH (05:03)
[2018-06-15] MEDS: LEVOTHYROXINE SODIUM 0.1 MG TABLET PO SCH (05:03)
[2018-06-15] MEDS: PANTOPRAZOLE SODIUM 20 MG TABLET.DR PO SCH (05:04)
[2018-06-15] MEDS: METHYLPREDNISOLONE INJ 125 MG/2 ML SDV IV SCH (05:04)
[2018-06-15 05:48] LABS: ABSOLUTE LYMPHOCYTES (AUTO) 0.9 10^3/uL (0.5-4.7); ABSOLUTE MONOCYTES (AUTO) 0.2 10^3/uL (0.1-1.4); ABSOLUTE NEUT (AUTO) 16.6 10^3/uL (1.7-8.2); BASOPHILS % (AUTO) 0.1 % (0-2); HEMATOCRIT 30.9 % (37.9-51.0); HEMOGLOBIN 10.3 g/dL (13.5-17.0); LYMPHOCYTES % (AUTO) 4.8 % (13-45); MEAN CORPUSCULAR HEMOGLOBIN 29.7 pg (27.0-33.4); MEAN CORPUSCULAR HGB CONC 33.4 g/dL (32.0-36.0); MEAN CORPUSCULAR VOLUME 89 fl (80-97); MONOCYTES % (AUTO) 1.1 % (3-13); PLATELET COUNT 224 10^3/uL (150-450); RED BLOOD COUNT 3.47 10^6/uL (4.35-5.55); RED CELL DISTRIBUTION WIDTH 14.2 % (11.5-14.0); TOTAL CELLS COUNTED % (AUTO) 100 %; WHITE BLOOD COUNT 17.7 10^3/uL (4.0-10.5)
[2018-06-15 06:15] LABS: ANION GAP 8 (5-19); BLOOD UREA NITROGEN 49 mg/dL (7-20); CALCIUM 9.1 mg/dL (8.4-10.2); CARBON DIOXIDE 23 mmol/L (22-30); CHLORIDE 104 mmol/L (98-107); GLUCOSE 124 mg/dL (75-110); POTASSIUM 4.6 mmol/L (3.6-5.0); SODIUM 135.2 mmol/L (137-145)
--- NOTE | 2018-06-15 08:31 | RADIOLOGY REPORT (SQ) ---
EXAM DESCRIPTION: CHEST SINGLE VIEW COMPLETED DATE/TIME: 06/15/2018 8:14 am REASON FOR STUDY: dyspnea COMPARISON: Chest films 09/25/2017, 06/13/2018, 06/14/2018 CT chest 06/13/2018 EXAM PARAMETERS: NUMBER OF VIEWS: One view. TECHNIQUE: Single frontal radiographic view of the chest acquired. RADIATION DOSE: NA LIMITATIONS: None. FINDINGS: LUNGS AND PLEURA: Moderate to large right pleural effusion opacifies the lower half of the right chest. There is right basilar consolidation atelectasis versus pneumonia. This is similar ov er a 06/14/2018 and 06/13/2018. This is new compared to 09/25/2017. There is patchy left basilar airspace disease with trace left pleural effusion unchanged from 9. No pneumothorax MEDIASTINUM AND HILAR STRUCTURES: No masses. Contour normal. HEART AND VASCULAR STRUCTURES: Moderate cardiomegaly BONES: No acute findings. HARDWARE: None in the chest. OTHER: No other significant finding. IMPRESSION: Moderate to large right pleural effusion, trace left pleural effusion Bibasilar airspace disease atelectasis versus pneumonia TECHNICAL DOCUMENTATION: JOB ID: [id number] [email or web address]- All Rights Reserved Reading location - IP/workstation name: [email or web address]
[2018-06-15 09:27] LABS: INTERNATIONAL RATION (INR) 0.98; PARTIAL THROMBOPLASTIN TIME 32.6 SEC (23.5-35.8); PROTHROMBIN TIME 13.5 SEC (11.4-15.4)
[2018-06-15] MEDS: CARVEDILOL 12.5 MG TABLET PO SCH ×2 (10:20→21:13)
[2018-06-15] MEDS: POLYETHYLENE GLYCOL 3350 POWDER 17 GM/1 PACKET PO SCH (10:20)
[2018-06-15] MEDS: GUAIFENESIN 600 MG TABLET.SA PO SCH ×2 (10:20→21:13)
[2018-06-15] MEDS: FLUTICASONE NASAL SPRAY 50 MCG/SPRY 120 SPRAY/16 GM NASL SCH ×2 (10:20→21:13)
[2018-06-15] MEDS: CYANOCOBALAMIN (VITAMIN B-12) 1,000 MCG TABLET PO SCH (10:20)
[2018-06-15] MEDS: DILTIAZEM HCL 240 MG CAPSULE.CR PO SCH ×2 (10:21→21:13)
[2018-06-15] MEDS: TAMSULOSIN HCL 0.4 MG CAP.SR.24H PO SCH (10:21)
[2018-06-15] MEDS: FERROUS SULFATE 325 MG TABLET PO SCH (10:21)
[2018-06-15] MEDS: ASPIRIN 81 MG TABLET, ENT COATED PO SCH (10:21)
[2018-06-15] MEDS: ENOXAPARIN SODIUM INJ 30 MG/0.3 ML DISP.SYRIN SUBCUT SCH (10:21)
[2018-06-15] MEDS: FAMOTIDINE 20 MG TABLET PO SCH ×2 (10:21→21:13)
[2018-06-15] MEDS ORDERED: LIDOCAINE 1% INJ-PF (10 MG/ML) 30 ML SDV ONE (11:13)
--- NOTE | 2018-06-15 12:25 | RADIOLOGY REPORT (SQ) ---
EXAM DESCRIPTION: CHEST SINGLE VIEW COMPLETED DATE/TIME: 06/15/2018 11:52 am REASON FOR STUDY: S/P RT THORACENTESIS COMPARISON: AP chest 06/15/2018 759 hours, 06/14/2018, 06/13/2018 CT chest 06/13/2018 EXAM PARAMETERS: NUMBER OF VIEWS: One view. TECHNIQUE: Single frontal radiographic view of the chest acquired. RADIATION DOSE: NA LIMITATIONS: None. FINDINGS: LUNGS AND PLEURA: Immediate post right thoracentesis with removal of 750 mL of serosanguin eous fluid from the right chest. Improvement opacification of the right hemithorax with decrease in fluid over the right major fissure. No right pneumothorax. There is a persistent small residual pleural effusion in the right lateral and posterior costophrenic sulcus, and persistent right basilar airspace disease likely atelectasis. Unchanged trace left pleural effusion and left retrocardiac consolidation atelectasis versus pneumoni a. MEDIASTINUM AND HILAR STRUCTURES: Stable cardiomegaly HEART AND VASCULAR STRUCTURES: Heart normal in size. Normal vasculature. BONES: No acute findings. HARDWARE: None in the chest. OTHER: No other significant finding. IMPRESSION: No pneumothorax post right thoracentesis. Small persistent right pleural effusion with basilar airspace disease TECHNICAL DOCUMENTATION: JOB ID: [id number] [employer]- All Rights Reserved Reading location - IP/workstation name: [email or web address]
--- NOTE | 2018-06-15 12:29 | RADIOLOGY REPORT (SQ) ---
EXAM DESCRIPTION: U/S THORACENTESIS WITH IMAGING COMPLETED DATE/TIME: 06/15/2018 12:14 pm REASON FOR STUDY: worsening R sided pleural effusion COMPARISON: CT chest 06/13/2018 LIMITATIONS: None. PROCEDURE: Procedure, risks, benefit, and alternative explained to patient who then gave written con sent. The posterior right chest wall was marked using ultrasound guidance. A time-out was called fo r correct marking verification. Chest prepped and draped using sterile technique. Local anesthesia a chieved using 7 ml of 1% lidocaine injection. A 6fr Safe-T- Centesis set was introduced into the rig ht pleural space. Fluid was aspirated. The catheter was removed and the entry site was covered with sterile bandage. No immediate complications noted. Pleural fluid was sent for cytology as well as r outine chemistries Images acquired during the procedure were stored on PACS. FINDINGS: ENTRY SITE: Posterior right pleural space FLUID VOLUME: 750 mL of serosanguineous fluid FLUID ANALYSIS: Sent for testing OTHER: Post procedure chest x-ray dictated separately demonstrated no postprocedure pneumothorax. IMPRESSION: SUCCESSFUL RIGHT DIAGNOSTIC AND THERAPEUTIC THORACENTESIS USING ULTRASOUND GUIDANCE. COMMENT: Patient medication list reviewed: Yes- Quality ID# [id number]:Eligible professional attests to doc umenting in the medical record they obtained, updated, or reviewed the patient's current medications. TECHNICAL DOCUMENTATION: JOB ID: [id number] [employer]- All Rights Reserved Reading location - IP/workstation name: [email or web address]
[2018-06-15 12:48] LABS: FLUID COLOR RED; FLUID SOURCE LUNG; FLUID TYPE PLEURAL
[2018-06-15 12:49] LABS: FLUID APPEARANCE CLOUDY; FLUID VISCOSITY SLIGHTLY VISCOUS
[2018-06-15] MEDS: METHYLPREDNISOLONE INJ 40 MG/1 ML SDV IV SCH ×2 (13:36→21:13)
[2018-06-15] MEDS ORDERED: METHYLPREDNISOLONE INJ 125 MG/2 ML SDV IV SCH (14:00)
--- NOTE | 2018-06-15 14:22 | RADIOLOGY REPORT (SQ) ---
EXAM DESCRIPTION: CHEST SINGLE VIEW COMPLETED DATE/TIME: 06/15/2018 2:04 pm REASON FOR STUDY: S/P RT THORACENTESIS 2 HOUR FILM COMPARISON: 06/15/2018 1149 hours EXAM PARAMETERS: NUMBER OF VIEWS: One view. TECHNIQUE: Single frontal radiographic view of the chest acquired. RADIATION DOSE: NA LIMITATIONS: None. FINDINGS: LUNGS AND PLEURA: No pneumothorax. Residual right pleural effusion. No interval change. MEDIASTINUM AND HILAR STRUCTURES: No masses. Contour normal. HEART AND VASCULAR STRUCTURES: Heart normal in size. Normal vasculature. BONES: No acute findings. HARDWARE: None in the chest. OTHER: No other significant finding. IMPRESSION: No pneumothorax status post thoracentesis TECHNICAL DOCUMENTATION: JOB ID: [id number] [employer]- All Rights Reserved Reading location - IP/workstation name: [email or web address]
[2018-06-15] MEDS ORDERED: ALBUTEROL SULFATE 0.083% NEB 2.5 MG/3 ML AMPUL NEB PRN (14:28)
--- NOTE | 2018-06-15 14:39 | PDOC PROGRESS REPORT ---
Subjective Progress Note for:: 06/15/18 Subjective:: 77 y.o. M with a PMH of CAD, [place], HLD, COPD presented with acute respiratory failure. CXR reveals RLL PNA and surrounding effusion that increased in size despite aggressive IV furosemide. Now status post thoracentesis; 750 mL serosanguineous fluid removed, culture and cytology pending. Patient was seen on morning rounds. He is found resting in bed comfortably on s upplemental oxygen at 2 L/min; he is not on home O2. Patient reports that his breathing is unchanged from yesterday. He denies chest pain. He is a little bit worried about his procedure this morning but has no other questions or concerns at this time. He does relate that he was recently admitted in an outside hospital for a "bowel blockage" and was discharged early so that he could attend his brother's who from a complication of lung cancer. He denies fever, chills, chest pain, palpitations, orthopnea, abdominal pain, nausea vomiting or diarrhea. He has no other questions or concerns at this time. Nursing reports that the patient was having visual hallucinations overnight; seems to have improved this morning. Unclear if this was . Otherwise no concerns. Reason For Visit: PNEUMONIA,COPD EXACERBATION,ACUTE KIDNEY INJURY Physical Exam Vital Signs: Temp Pulse Resp BP Pulse Ox 98.1 F 84 18 138/71 H 94 06/15/18 08:17 06/15/18 13:46 06/15/18 13:46 06/15/18 09:40 06/15/18 13:46 Intake & Output 06/14/18 06/15/18 06/16/18 06:59 06:59 06:59 Intake Total 1200 874 Output Total 3325 0 Balance -2125 -1176 Weight 66.7 kg 65.2 kg General appearance: PRESENT: no acute distress, thin, well-developed, well- nourished Head exam: PRESENT: atraumatic, normocephalic Eye exam: PRESENT: conjunctiva pink, EOMI, PERRLA. ABSENT: scleral icterus Ear exam: PRESENT: normal external ear exam Mouth exam: PRESENT: moist, tongue midline Neck exam: ABSENT: carotid bruit, JVD, lymphadenopathy, thyromegaly Respiratory exam: PRESENT: clear to auscultation brenda, decreased breath sounds - Absent RLL, symmetrical, unlabored, other - Supplemental oxygen via nasal cannula. ABSENT: rales, rhonchi, wheezes Cardiovascular exam: PRESENT: RRR, +S1, +S2. ABSENT: diastolic murmur, rubs, systolic murmur Pulses: PRESENT: normal dorsalis pedis pul Vascular exam: PRESENT: normal capillary refill GI/Abdominal exam: PRESENT: normal bowel sounds, soft. ABSENT: distended, guarding, mass, organolmegaly, rebound, tenderness Rectal exam: PRESENT: deferred Extremities exam: PRESENT: full ROM. ABSENT: calf tenderness, clubbing, pedal edema Neurological exam: PRESENT: alert, awake, oriented to person, oriented to place, oriented to time, oriented to situation, CN II-XII grossly intact. ABSENT: motor sensory deficit Psychiatric exam: PRESENT: appropriate affect, normal mood. ABSENT: homicidal ideation, suicidal ideation Skin exam: PRESENT: dry, intact, warm. ABSENT: cyanosis, rash Results Laboratory Results: 06/15/18 04:07 06/15/18 04:07 06/15/18 06/15/18 06/15/18 04:07 04:07 11:30 WBC 17.7 H RBC 3.47 L Hgb 10.3 L Hct 30.9 L MCV 89 MCH 29.7 MCHC 33.4 RDW 14.2 H Plt Count 224 Seg Neutrophils % 94.0 H Lymphocytes % 4.8 L Monocytes % 1.1 L Eosinophils % 0.0 Basophils % 0.1 Absolute Neutrophils 16.6 H Absolute Lymphocytes 0.9 Absolute Monocytes 0.2 Absolute Eosinophils 0.0 Absolute Basophils 0.0 Sodium 135.2 L Potassium 4.6 Chloride 104 Carbon Dioxide 23 Anion Gap 8 BUN 49 H Creatinine 2.53 H Est GFR ( Amer) 30 L Est GFR (Non-Af Amer) 25 L Glucose 124 H Calcium 9.1 Magnesium 2.2 Fluid Type PLEURAL Fluid Source LUNG Fluid Color RED Fluid Appearance CLOUDY Fluid Viscosity SLIGHTLY VISCOUS Fluid WBC 333 Fluid RBC [id number] 06/13/18 02:04 Troponin I < 0.012 NT-Pro-B Natriuret Pep 1640 H Impressions: Thoracentesis Ultrasound 06/15/18 00:00 IMPRESSION: SUCCESSFUL RIGHT DIAGNOSTIC AND THERAPEUTIC THORACENTESIS USING U LTRASOUND GUIDANCE. Assessment and Plan - Diagnosis (1) Acute respiratory failure Is this a current diagnosis for this admission?: Yes Plan: Improved from time of admission. Patient remains on supplemental oxygen 2 L/min; not home O2 dependent. Repeat CXR shows worsening right pleural effusion Secondary to COPD exacerbation stemming from PNA and b/l pleural effusions. Now questionable malignancy as pleural fluid was serosanguineous. Treated with Levaquin for PNA. IV furosemide is discontinued. Continue supplemental oxygen as needed to maintain oxygen saturations >89% Continue scheduled and as needed nebulizer treatments. Have begun weaning Solu-Medrol.. Continue twice daily Mucinex. (2) Acute kidney injury superimposed on chronic kidney disease Is this a current diagnosis for this admission?: Yes Plan: Improving 2.7-->2.41--> 2.53 Patient's baseline Creatinine 1.5 FeNa 1.46% Avoid nephrotoxic medications as able. Trend daily chemistries. Nephrology has been consulted, appreciate recommendations (3) COPD exacerbation Is this a current diagnosis for this admission?: Yes Plan: Supplemental oxygen as needed. Scheduled and as needed nebulizer treatments. IV Solu-Medrol; have begun weaning. Mucinex twice daily. (4) Community acquired pneumonia Is this a current diagnosis for this admission?: Yes Plan: As seen on CXR and CT scan Treated with IV Levaquin Worsening leukocytosis 8-->14--> 17.7; remains afebrile and clinically improved. (5) Pleural effusion, right Is this a current diagnosis for this admission?: Yes Plan: R sided pleural effusion Presumed secondary to CHF, BNP 1650 (no previous results to compare); however, did not respond to diuresis and on thoracentesis was found to be serosanguineous concerning for malignancy. Laboratory evaluation, cultures, and cytology pending. Have consulted oncology. (6) Hypothyroidism Is this a current diagnosis for this admission?: Yes Plan: TSH elevated to 34 Low T3 normal T4 Patient already on Synthroid 225mcg daily Increased dose to 250mcg daily Will need to follow up with PCP for TSH monitoring - Time Time Spent with patient: 35 or more minutes Medications reviewed and adjusted accordingly: Yes Anticipated discharge: Home Within: within 48 hours
[2018-06-15] MEDS: HYDRALAZINE HCL 25 MG TABLET PO SCH (21:13)
[2018-06-15] MEDS: ATORVASTATIN CALCIUM 10 MG TABLET PO SCH (21:13)
[2018-06-16] MEDS: PANTOPRAZOLE SODIUM 20 MG TABLET.DR PO SCH (05:12)
[2018-06-16] MEDS: METHYLPREDNISOLONE INJ 40 MG/1 ML SDV IV SCH ×3 (05:12→21:09)
[2018-06-16] MEDS: LEVOTHYROXINE SODIUM 0.1 MG TABLET PO SCH (05:12)
[2018-06-16] MEDS: LEVOTHYROXINE SODIUM 0.05 MG TABLET PO SCH (05:12)
[2018-06-16 05:26] LABS: ABSOLUTE LYMPHOCYTES (AUTO) 0.8 10^3/uL (0.5-4.7); ABSOLUTE MONOCYTES (AUTO) 0.3 10^3/uL (0.1-1.4); ABSOLUTE NEUT (AUTO) 14.8 10^3/uL (1.7-8.2); HEMOGLOBIN 10.5 g/dL (13.5-17.0); LYMPHOCYTES % (AUTO) 5.1 % (13-45); MEAN CORPUSCULAR HEMOGLOBIN 30.4 pg (27.0-33.4); MEAN CORPUSCULAR VOLUME 90 fl (80-97); MONOCYTES % (AUTO) 1.7 % (3-13); PLATELET COUNT 232 10^3/uL (150-450); RED BLOOD COUNT 3.47 10^6/uL (4.35-5.55); RED CELL DISTRIBUTION WIDTH 14.2 % (11.5-14.0); SEGMENTED NEUTROPHILS % (AUTO) 93.2 % (42-78); TOTAL CELLS COUNTED % (AUTO) 100 %; WHITE BLOOD COUNT 15.8 10^3/uL (4.0-10.5)
[2018-06-16 05:52] LABS: ANION GAP 12 (5-19); BLOOD UREA NITROGEN 51 mg/dL (7-20); CALCIUM 9.1 mg/dL (8.4-10.2); CARBON DIOXIDE 21 mmol/L (22-30); CHLORIDE 106 mmol/L (98-107); GLUCOSE 125 mg/dL (75-110); POTASSIUM 4.1 mmol/L (3.6-5.0); SODIUM 138.9 mmol/L (137-145)
[2018-06-16] MEDS: IPRATROPIUM/ALBUTEROL 0.5-2.5 MG/3 ML AMPUL NEB SCH ×2 (08:08→19:46)
--- NOTE | 2018-06-16 08:58 | PDOC CONSULTATION ---
Consultation Consult Date: 06/16/18 Attending physician:: LEONID TURNER Consult reason:: Pleural effusion, concern of malignant History of Present Illness Admission Date/PCP: 06/13/18 03:54 RITCHIE HENLEY MD Patient complains of: Shortness of breath, dyspnea on exertion History of Present Illness: EYAL ELLER is a 77 year old male with about 2-3-week history of inc reasing dyspnea on exertion. He notes that over the last 3-4 months he has lost about 30 pounds. But he is also gone through a lot of family stressors just about a month ago, his brother ended up getting transferred from [facility] to [facility] was found to have metastatic cancer and 3 days later. Unfortunately he also had what appeared to be a malignant pleural effusion and possible GI malignancy. The patient himself notes that he has had some hematochezia but has been foll owed closely by gastroenterology. He feels like the stress has helped the weight loss. Upon presentation he had CT of the chest without contrast as he does have chronic kidney disease. This indicated bilateral pleural effusions right greater than left, I reviewed the images myself, hard to tell if there is anything parenchymal that is covered by the effusion. He had right paracentesis with serosanguineous drainage, the appearance was concerning for an exudate/malignant effusion, therefore we were consulted. He had about 750 mL out. He feels better today. Past Medical History Cardiac Medical History: Reports: Coronary Artery Disease, Myocardial I nfarction, Hyperlipidema, Hypertension Pulmonary Medical History: Reports: Chronic Obstructive Pulmonary Disease (COPD) Denies: Asthma, Bronchitis, Pneumonia Neurological Medical History: Denies: Seizures Endocrine Medical History: Reports: Hypothyroidism GI Medical History: Reports: Diverticulitis, Gastroesophageal Reflux Disease Musculoskeltal Medical History: Reports: Arthritis Hematology: Denies: Anemia Past Surgical History Past Surgical History: Reports: Appendectomy, Other - Back Surgery (Patient is unsure what type) also had a partial colectomy Denies: Pacemaker Social History Lives with: Spouse/Significant other Smoking Status: Former Smoker Cigarettes Packs Per Day: 1 Number of Years Smokin Last Time Smoked: quit 1986 Frequency of Alcohol Use: None Hx Recreational Drug Use: No Drugs: None Hx Prescription Drug Abuse: No - Advance Directive Resuscitation Status: Full Code Family History Family History: Reviewed & Not Pertinent Parental Family History Reviewed: Yes Children Family History Reviewed: Yes Sibling(s) Family History Reviewed.: Yes Medication/Allergy Home Medications: Albuterol Sulfate [Proair HFA] 2 puff IH Q4HP PRN 07/12/16 Amitriptyline HCl [Elavil 25 mg Tablet] 25 mg PO QHS 07/12/16 Hydralazine HCl [Apresoline 25 mg Tablet] 25 mg PO QHS 07/12/16 Levothyroxine Sodium [Synthroid] 25 mcg PO QAM 07/12/16 Levothyroxine Sodium [Synthroid] 200 mcg PO QAM 07/12/16 Tamsulosin HCl [Flomax 0.4 mg Cap.sr] 0.4 mg PO DAILY 07/12/16 Aspirin [Ecotrin] 81 mg PO DAILY 06/13/18 Brinzolamide/Brimonidine Tart [Simbrinza 1%-0.2% Eye Drops] 1 drop OD DAILY 06/13/18 Brinzolamide/Brimonidine Tart [Simbrinza 1%-0.2% Eye Drops] 1 drop OS Q12 06/13/18 Carvedilol [Coreg 12.5 mg Tablet] 12.5 mg PO Q12 06/13/18 Cyanocobalamin (Vitamin B-12) [Vitamin B-12] 1,000 mcg PO DAILY 06/13/18 Cyclobenzaprine HCl [Flexeril 10 mg Tablet] 10 mg PO Q12HP PRN 06/13/18 Diltiazem HCl [Cardizem Cd 240 mg Capsule.cr] 240 mg PO Q12 06/13/18 Fluticasone Propionate [Flonase Nasal Roulette 50 Mcg/Roulette 16 gm] 2 spray NASL DAILY 06/13/18 Iron 65 65 mg PO DAILY 06/13/18 Losartan Potassium [Cozaar 25 mg Tablet] 25 mg PO Q12 06/13/18 Nitroglycerin [Nitrostat 0.4 mg (1/150 Gr) Tabs 25/Bottle] 1 tab PO DAILYP PRN 06/13/18 Pantoprazole Sodium [Protonix [address] Tablet] 20 mg PO QAM 06/13/18 Rosuvastatin Calcium 5 mg PO Q2D 06/13/18 Tramadol HCl [Ultram 50 mg Tablet] 50 mg PO TIDP PRN 06/13/18 Allergies/Adverse Reactions: iodine [Iodine] Allergy (Mild, Verified 08/13/16 07:59) itching, burning Penicillins Allergy (Mild, Verified 08/13/16 07:59) welts, nausea, nomiting Review of Systems Constitutional: ABSENT: chills, fever(s), headache(s), weight gain, weight loss Eyes: ABSENT: visual disturbances Ears: ABSENT: hearing changes Cardiovascular: ABSENT: chest pain, dyspnea on exertion, edema, orthropnea, palpitations Respiratory: ABSENT: cough, hemoptysis Gastrointestinal: ABSENT: abdominal pain, constipation, diarrhea, hematemesis, h ematochezia, nausea, vomiting Genitourinary: ABSENT: dysuria, hematuria Musculoskeletal: ABSENT: joint swelling Integumentary: ABSENT: rash, wounds Neurological: ABSENT: abnormal gait, abnormal speech, confusion, dizziness, focal weakness, syncope Psychiatric: ABSENT: anxiety, depression, homidical ideation, suicidal ideation Endocrine: ABSENT: cold intolerance, heat intolerance, polydipsia, polyuria Hematologic/Lymphatic: ABSENT: easy bleeding, easy bruising Physical Exam Vital Signs: Temp Pulse Resp BP Pulse Ox 97.7 F 70 22 H 125/75 93 06/16/18 07:54 06/16/18 07:54 06/16/18 07:54 06/16/18 07:54 06/16/18 07:54 Intake & Output 06/15/18 06/16/18 06/17/18 06:59 06:59 06:59 Intake Total 874 1319 Output Total 8616 0905 Balance -1176 -256 Weight 65.2 kg 63.5 kg General appearance: PRESENT: no acute distress, well-developed, well-nourished Head exam: PRESENT: atraumatic, normocephalic Eye exam: PRESENT: conjunctiva pink, EOMI, PERRLA. ABSENT: scleral icterus Ear exam: PRESENT: normal external ear exam Mouth exam: PRESENT: moist, tongue midline Neck exam: ABSENT: carotid bruit, JVD, lymphadenopathy, thyromegaly Respiratory exam: PRESENT: clear to auscultation brenda. ABSENT: rales, rhonchi, wheezes Cardiovascular exam: PRESENT: RRR. ABSENT: diastolic murmur, rubs, systolic murmur Pulses: PRESENT: normal dorsalis pedis pul Vascular exam: PRESENT: normal capillary refill GI/Abdominal exam: PRESENT: normal bowel sounds, soft. ABSENT: distended, guarding, mass, organolmegaly, rebound, tenderness Rectal exam: PRESENT: deferred Extremities exam: PRESENT: full ROM. ABSENT: calf tenderness, clubbing, pedal edema Neurological exam: PRESENT: alert, awake, oriented to person, oriented to place, oriented to time, oriented to situation, CN II-XII grossly intact. ABSENT: motor sensory deficit Psychiatric exam: PRESENT: appropriate affect, normal mood. ABSENT: homicidal ideation, suicidal ideation Skin exam: PRESENT: dry, intact, warm. ABSENT: cyanosis, rash Results Laboratory Results: 06/16/18 04:13 06/16/18 04:13 06/15/18 06/16/18 06/16/18 11:30 04:13 04:13 WBC 15.8 H RBC 3.47 L Hgb 10.5 L Hct 31.0 L MCV 90 MCH 30.4 MCHC 34.0 RDW 14.2 H Plt Count 232 Seg Neutrophils % 93.2 H Lymphocytes % 5.1 L Monocytes % 1.7 L Eosinophils % 0.0 Basophils % 0.0 Absolute Neutrophils 14.8 H Absolute Lymphocytes 0.8 Absolute Monocytes 0.3 Absolute Eosinophils 0.0 Absolute Basophils 0.0 Sodium 138.9 Potassium 4.1 Chloride 106 Carbon Dioxide 21 L Anion Gap 12 BUN 51 H Creatinine 2.33 H Est GFR ( Amer) 33 L Est GFR (Non-Af Amer) 27 L Glucose 125 H Calcium 9.1 Magnesium 2.3 Fluid Type PLEURAL Fluid Source LUNG Fluid Color RED Fluid Appearance CLOUDY Fluid Viscosity SLIGHTLY VISCOUS Fluid WBC 333 Fluid RBC [id number] 06/13/18 02:04 Troponin I < 0.012 NT-Pro-B Natriuret Pep 1640 H Impressions: Thoracentesis Ultrasound 06/15/18 00:00 IMPRESSION: SUCCESSFUL RIGHT DIAGNOSTIC AND THERAPEUTIC THORACENTESIS USING ULTRASOUND GUIDANCE. Chest X-Ray 06/15/18 13:30 IMPRESSION: No pneumothorax status post thoracentesis Status: Image reviewed by me Assessment & Plan - Diagnosis (1) Pleural effusion, right Is this a current diagnosis for this admission?: Yes Plan: Concern of malignant pleural effusion, await cytology, today I ordered repeat CT of the chest without contrast, I also added CT of the abdomen pelvis with oral contrast given his bowel complaints. We should be able to see now that he has gotten 750 mL out if there is some sort of mass in the lung. (2) Anemia Qualifiers: Anemia type: iron deficiency Iron deficiency anemia type: chronic blood loss Qualified Code(s): D50.0 - Iron deficiency anemia secondary to blood loss (chronic) Is this a current diagnosis for this admission?: Yes Plan: He has had iron deficiency anemia in the past and has had hematochezia on and off. He did have endoscopies by Dr. Gasca in the last few years. I have added iron studies and will treat accordingly with IV iron if needed. - Time Time Spent: Greater than 70 Minutes - Inpatient Certification Based on my medical assessment, after consideration of the patient's comorbidities, presenting symptoms, or acuity I expect that the services needed warrant INPATIENT care.: Yes I certify that my determination is in accordance with my understanding of Medicare's requirements for reasonable and necessary INPATIENT services [42 CFR 412.3e].: Yes Medical Necessity: Need for Surgery, Risk of Complication if Not Cared For in Hospital
[2018-06-16 09:32] LABS: IRON(TIBC) 55.8 ug/dL (49-181)
[2018-06-16] MEDS ORDERED: LEVOFLOXACIN 750 MG/D5W RTU 750 MG/150 ML RTUPB IV SCH (10:00)
[2018-06-16 10:40] LABS: FOLATE 9.36 ng/mL (>2.76)
[2018-06-16] MEDS: DILTIAZEM HCL 240 MG CAPSULE.CR PO SCH ×2 (11:32→21:08)
[2018-06-16] MEDS: ASPIRIN 81 MG TABLET, ENT COATED PO SCH (11:32)
[2018-06-16] MEDS: POLYETHYLENE GLYCOL 3350 POWDER 17 GM/1 PACKET PO SCH ×2 (11:32)
[2018-06-16] MEDS: FAMOTIDINE 20 MG TABLET PO SCH ×2 (11:32→21:08)
[2018-06-16] MEDS: CYANOCOBALAMIN (VITAMIN B-12) 1,000 MCG TABLET PO SCH (11:32)
[2018-06-16] MEDS: GUAIFENESIN 600 MG TABLET.SA PO SCH ×2 (11:32→21:09)
[2018-06-16] MEDS: TAMSULOSIN HCL 0.4 MG CAP.SR.24H PO SCH (11:32)
[2018-06-16] MEDS: FERROUS SULFATE 325 MG TABLET PO SCH (11:32)
[2018-06-16] MEDS: CARVEDILOL 12.5 MG TABLET PO SCH ×2 (11:33→21:09)
[2018-06-16] MEDS: ENOXAPARIN SODIUM INJ 30 MG/0.3 ML DISP.SYRIN SUBCUT SCH (11:33)
[2018-06-16] MEDS: FLUTICASONE NASAL SPRAY 50 MCG/SPRY 120 SPRAY/16 GM NASL SCH ×2 (11:36→21:09)
--- NOTE | 2018-06-16 13:09 | RADIOLOGY REPORT (SQ) ---
EXAM DESCRIPTION: CT CHEST WITHOUT; CT ABD/PELVIS ORAL ONLY COMPLETED DATE/TIME: 06/16/2018 12:38 pm REASON FOR STUDY: malignant pleural effusion, hematochezia-oral cont; MALIGNANT PLEURAL EFFUSSION, A BDOMEN PAIN COMPARISON: CT chest, 06/13/2018 TECHNIQUE: CT scan of the chest performed without intravenous contrast using helical scanning techni que. Images reviewed with lung, soft tissue and bone windows. Reconstructed coronal and sagittal MPR images reviewed. All images stored on PACS. All CT scanners at this facility use dose modulation, iterative reconstruction, and/or weight based d osing when appropriate to reduce radiation dose to as low as reasonably achievable (ALARA). [facility]: Dose Right [facility]: CareDose [facility]: Dose Right [facility]: Teradose 4D [facility]: Smart Smartjog RADIATION DOSE: CT Rad equipment meets quality standard of care and radiation dose reduction techniq ues were employed. CTDIvol: 6.3 mGy. DLP: 265 mGy-cm.; CT Rad equipment meets quality standard of car e and radiation dose reduction techniques were employed. CTDIvol: 5.6 mGy. DLP: 316 mGy-cm. mGy. LIMITATIONS: None. FINDINGS: AXILLAE: No adenopathy. CHEST WALL: No masses. No subcutaneous air. LUNGS: Centrilobular emphysema. Atelectasis or consolidation of the dependent bilateral lungs associ ated with pleural effusion without obvious mass. PLEURA: Moderate to large right pleural effusion and small left pleural effusions, not significantly changed from prior examination. THYROID: No masses or significant asymmetry. HILAR AND MEDIASTINAL STRUCTURES: No identified masses or abnormal nodes. 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 Aortic atherosclerosis. HEART: Small pericardial effusion. Three-vessel coronary artery calcifications. HARDWARE AND LIFELINES: None. BONES: No significant finding. OTHER: No other significant finding. IMPRESSION: 1. Moderate to large right pleural effusion and small left pleural effusion, not signifi cantly changed from prior examination. Associated atelectasis or consolidation of the dependent bila teral lungs without obvious mass on noncontrast examination. 2. Emphysema. 3. 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 4. Small pericardial effusion. 5. Coronary artery disease. COMPARISON: None. TECHNIQUE: CT scan of the abdomen and pelvis performed without intravenous contrast and withoral con trast using helical scanning technique with dynamic intravenous contrast injection. Images reviewed with lung, soft tissue and bone windows. Reconstructed coronal and sagittal MPR images reviewed. Al l images stored on PACS. All CT scanners at this facility use dose modulation, iterative reconstruction, and/or weight based d osing when appropriate to reduce radiation dose to as low as reasonably achievable (ALARA). [facility]: Dose Right [facility]: SureCare [facility]: Dose Right [facility]: Teradose 4D [facility]: Smart Smartjog RADIATION DOSE: CT Rad equipment meets quality standard of care and radiation dose reduction techniq ues were employed. CTDIvol: 6.3 mGy. DLP: 265 mGy-cm.; CT Rad equipment meets quality standard of car e and radiation dose reduction techniques were employed. CTDIvol: 5.6 mGy. DLP: 316 mGy-cm.mGy. LIMITATIONS: None. FINDINGS: LIVER: Hepatomegaly. No masses. No dilated ducts. SPLEEN: Splenomegaly. No focal lesions. PANCREAS: No masses. No significant calcifications. No adjacent inflammation or peripancreatic flui d collections. Pancreatic duct not dilated. GALLBLADDER: Surgically absent. ADRENAL GLANDS: No significant masses or asymmetry. RIGHT KIDNEY AND URETER: No solid masses. Assessment limited by lack of IV contrast. No significant c alcification. No hydronephrosis or hydroureter. LEFT KIDNEY AND URETER: No solid masses. Assessment limited by lack of IV contrast. No significant ca lcification. No hydronephrosis or hydroureter. AORTA AND VESSELS: Status post aortobiiliac stent endograft repair of an abdominal aortic aneurysm. RETROPERITONEUM: No retroperitoneal adenopathy, hemorrhage or masses. APPENDIX: Not clearly visualized. LARGE AND SMALL BOWEL: Status post left colectomy with anastomosis in the right upper quadrant. The colon is fluid-filled to the rectum. ABDOMINAL WALL: No hernia or masses. Anasarca. PERITONEAL CAVITY: No free air. No free fluid. No peritoneal implants or masses. PELVIS: No mass or free fluid. Normal bladder. BONES: No significant or acute findings. OTHER: No other significant finding. IMPRESSION: 1. No obvious noncontrast CT findings to explain hematochezia. Postoperative findings of left colectomy with anastomosis in the right upper quadrant. The colon is fluid-filled to the rec cherie. Consider direct colonoscopic evaluation to further evaluate unexplained hematochezia. 2. Hepatosplenomegaly. 3. Anasarca. TECHNICAL DOCUMENTATION: JOB ID: [id number] Quality ID # [id number]: Final reports with documentation of one or more dose reduction techniques (e.g., Au tomated exposure control, adjustment of the mA and/or kV according to patient size, use of iterative reconstruction technique) 2010 [employer] All Rights Reserved Reading location - IP/workstation name: [email or web address]
--- NOTE | 2018-06-16 16:19 | PDOC PROGRESS REPORT ---
Subjective Progress Note for:: 06/16/18 Subjective:: 77 y.o. M with a PMH of CAD, IN, HLD, COPD presented with acute respiratory failure. CXR reveals RLL PNA and surrounding effusion that increased in size despite aggressive IV furosemide. Now status post thoracentesis; 750 mL serosanguineous fluid removed, culture and cytology pending. Patient was seen on morning rounds. He is found resting in bed comfortably on r oom air. He reports that his breathing is significantly improved. He is tearful and worried today about his pleural effusion (serosanguineous with concern for malignancy); his brother recently from lung cancer after thoracentesis. He met with Dr. Nassar this morning, was appreciative of the consultation but does not for me now that he is followed by Dr. Grullon and would like to have her consulted if possible. Overall he is feeling much improved. He denies fever, chills, chest pain, palpitations, dyspnea, orthopnea, abdominal pain, nausea vomiting or diarrhea. No concerns per nursing. Reason For Visit: PNEUMONIA,COPD EXACERBATION,ACUTE KIDNEY INJURY Physical Exam Vital Signs: Temp Pulse Resp BP Pulse Ox 98.3 F 71 21 H 136/69 H 91 L 06/16/18 15:36 06/16/18 15:36 06/16/18 15:36 06/16/18 15:36 06/16/18 15:36 Intake & Output 06/15/18 06/16/18 06/17/18 06:59 06:59 06:59 Intake Total 874 1319 478 Output Total 5130 5875 Balance -1176 -256 478 Weight 65.2 kg 63.5 kg General appearance: PRESENT: no acute distress, cooperative, well-developed, well-nourished Head exam: PRESENT: atraumatic, normocephalic Eye exam: PRESENT: conjunctiva pink, EOMI, PERRLA. ABSENT: scleral icterus Mouth exam: PRESENT: moist, tongue midline Neck exam: ABSENT: carotid bruit, JVD, lymphadenopathy, thyromegaly Respiratory exam: PRESENT: clear to auscultation brenda, decreased breath sounds - bibasilar; improved from yesterday, symmetrical, unlabored. ABSENT: rales, rhonchi, wheezes Cardiovascular exam: PRESENT: RRR. ABSENT: diastolic murmur, rubs, systolic murmur Pulses: PRESENT: normal dorsalis pedis pul Vascular exam: PRESENT: normal capillary refill GI/Abdominal exam: PRESENT: normal bowel sounds, soft. ABSENT: distended, guarding, mass, organolmegaly, rebound, tenderness Rectal exam: PRESENT: deferred Extremities exam: PRESENT: full ROM. ABSENT: calf tenderness, clubbing, pedal edema Neurological exam: PRESENT: alert, awake, oriented to person, oriented to place, oriented to time, oriented to situation, CN II-XII grossly intact. ABSENT: motor sensory deficit Psychiatric exam: PRESENT: appropriate affect, normal mood, other - tearful. ABSENT: homicidal ideation, suicidal ideation Skin exam: PRESENT: dry, intact, warm. ABSENT: cyanosis, rash Results Laboratory Results: 06/16/18 04:13 06/16/18 04:13 06/15/18 06/15/18 06/15/18 11:30 11:30 11:30 WBC RBC Hgb Hct MCV MCH MCHC RDW Plt Count Seg Neutrophils % Lymphocytes % Monocytes % Eosinophils % Basophils % Absolute Neutrophils Absolute Lymphocytes Absolute Monocytes Absolute Eosinophils Absolute Basophils Sodium Potassium Chloride Carbon Dioxide Anion Gap BUN Creatinine Est GFR ( Amer) Est GFR (Non-Af Amer) Glucose Calcium Magnesium Iron TIBC % Saturation Ferritin Vitamin B12 Folate Fluid Glucose 139 Fluid LDH 242 Fluid Amylase 51 06/16/18 06/16/18 06/16/18 04:13 04:13 04:13 WBC 15.8 H RBC 3.47 L Hgb 10.5 L Hct 31.0 L MCV 90 MCH 30.4 MCHC 34.0 RDW 14.2 H Plt Count 232 Seg Neutrophils % 93.2 H Lymphocytes % 5.1 L Monocytes % 1.7 L Eosinophils % 0.0 Basophils % 0.0 Absolute Neutrophils 14.8 H Absolute Lymphocytes 0.8 Absolute Monocytes 0.3 Absolute Eosinophils 0.0 Absolute Basophils 0.0 Sodium 138.9 Potassium 4.1 Chloride 106 Carbon Dioxide 21 L Anion Gap 12 BUN 51 H Creatinine 2.33 H Est GFR ( Amer) 33 L Est GFR (Non-Af Amer) 27 L Glucose 125 H Calcium 9.1 Magnesium 2.3 Iron 55.8 TIBC 220 L % Saturation 25 Ferritin Vitamin B12 > 1000.0 H Folate 9.36 Fluid Glucose Fluid LDH Fluid Amylase 06/16/18 04:13 WBC RBC Hgb Hct MCV MCH MCHC RDW Plt Count Seg Neutrophils % Lymphocytes % Monocytes % Eosinophils % Basophils % Absolute Neutrophils Absolute Lymphocytes Absolute Monocytes Absolute Eosinophils Absolute Basophils Sodium Potassium Chloride Carbon Dioxide Anion Gap BUN Creatinine Est GFR ( Amer) Est GFR (Non-Af Amer) Glucose Calcium Magnesium Iron TIBC % Saturation Ferritin 494.00 H Vitamin B12 Folate Fluid Glucose Fluid LDH Fluid Amylase 06/13/18 02:04 Troponin I < 0.012 NT-Pro-B Natriuret Pep 1640 H Impressions: Thoracentesis Ultrasound 06/15/18 00:00 IMPRESSION: SUCCESSFUL RIGHT DIAGNOSTIC AND THERAPEUTIC THORACENTESIS USING ULTRASOUND GUIDANCE. Chest X-Ray 06/15/18 13:30 IMPRESSION: No pneumothorax status post thoracentesis Abdomen/Pelvis CT 06/16/18 00:00 IMPRESSION: 1. Moderate to large right pleural effusion and small left pleural effusion, not significantly changed from prior examination. Associated atelectasis or consolidation of the dependent bilateral lungs without obvious mass on noncontrast examination. 2. Emphysema. 3. 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 4. Small pericardial effusion. 5. Coronary artery disease. IMPRESSION: 1. No obvious noncontrast CT findings to explain hematochezia. Postoperative findings of left colectomy with anastomosis in the right upper quadrant. The colon is fluid-filled to the rectum. Consider direct colonoscopic evaluation to further evaluate unexplained hematochezia. 2. Hepatosplenomegaly. 3. Anasarca. Chest CT 06/16/18 00:00 IMPRESSION: 1. Moderate to large right pleural effusion and small left pleural effusion, not significantly changed from prior examination. Associated atelectasis or consolidation of the dependent bilateral lungs without obvious mass on noncontrast examination. 2. Emphysema. 3. 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 4. Small pericardial effusion. 5. Coronary artery disease. IMPRESSION: 1. No obvious noncontrast CT findings to explain hematochezia. Postoperative findings of left colectomy with anastomosis in the right upper qu adrant. The colon is fluid-filled to the rectum. Consider direct colonoscopic evaluation to further evaluate unexplained hematochezia. 2. Hepatosplenomegaly. 3. Anasarca. Assessment and Plan - Diagnosis (1) Acute respiratory failure Is this a current diagnosis for this admission?: Yes Plan: Improved from time of admission. Now ambulatory on room air. Repeat CXR shows worsening right pleural effusion Secondary to COPD exacerbation stemming from PNA and b/l pleural effusions. Now questionable malignancy as pleural fluid was serosanguineous. Treated with Levaquin for PNA. Initially diuresed with IV furosemide; since Discontinued. Continue supplemental oxygen as needed to maintain oxygen saturations >89% Continue scheduled and as needed nebulizer treatments. Continue weaning Solu-Medrol. Continue twice daily Mucinex. (2) Acute kidney injury superimposed on chronic kidney disease Is this a current diagnosis for this admission?: Yes Plan: Improving 2.7-->2.41--> 2.53-> 2.33 Patient's baseline Creatinine 1.5 FeNa 1.46% Avoid nephrotoxic medications as able. Trend daily chemistries. Nephrology has been consulted, appreciate recommendations (3) COPD exacerbation Is this a current diagnosis for this admission?: Yes Plan: Supplemental oxygen as needed. Scheduled and as needed nebulizer treatments. IV Solu-Medrol; continue weaning. Mucinex twice daily. (4) Community acquired pneumonia Is this a current diagnosis for this admission?: Yes Plan: As seen on CXR and CT scan Leukocytosis is improved 8-->14--> 17.7-> 15.8; remains afebrile and clinically improved. Patient was empirically placed on IV Levaquin for treatment of CAP; has been transitioned to p.o. Day #3 (5) Pleural effusion, right Is this a current diagnosis for this admission?: Yes Plan: R sided pleural effusion Presumed secondary to CHF, BNP 1650 (no previous results to compare); however, did not respond to diuresis and on thoracentesis was found to be serosanguineous concerning for malignancy. Laboratory evaluation shows cloudy, slightly viscous fluid with WBCs 333, RBC is 29K, glucose, LDH, amylase were nonrevealing. Pleural effusion cultures have no growth at [address] chest, CT abdomen pelvis with contrast were negative for masses/concerning evidence for malignancy. Have consulted oncology. (6) Hypothyroidism Is this a current diagnosis for this admission?: Yes Plan: TSH elevated to 34 Low T3 normal T4 Patient already on Synthroid 225mcg daily Increased dose to 250mcg daily Will need to follow up with PCP for TSH monitoring - Time Time Spent with patient: 25-34 minutes Medications reviewed and adjusted accordingly: Yes Anticipated discharge: Home Within: within 24 hours
[2018-06-16] MEDS: ATORVASTATIN CALCIUM 10 MG TABLET PO SCH (21:08)
[2018-06-16] MEDS: HYDRALAZINE HCL 25 MG TABLET PO SCH (21:08)
[2018-06-16] MEDS: ALPRAZOLAM 0.25 MG TABLET PO PRN (21:08)
[2018-06-16] MEDS ORDERED: POLYETHYLENE GLYCOL 3350 POWDER 17 GM/1 PACKET PO SCH (22:00)
[2018-06-17] MEDS: ALPRAZOLAM 0.25 MG TABLET PO PRN (02:34)
[2018-06-17 05:33] LABS: ABSOLUTE RETICS # 0.042 10^6/uL (0.028-0.122); HEMATOCRIT 32.3 % (37.9-51.0); HEMOGLOBIN 10.7 g/dL (13.5-17.0); MEAN CORPUSCULAR HEMOGLOBIN 29.7 pg (27.0-33.4); MEAN CORPUSCULAR HGB CONC 33.2 g/dL (32.0-36.0); MEAN CORPUSCULAR VOLUME 89 fl (80-97); PLATELET COUNT 219 10^3/uL (150-450); RED BLOOD COUNT 3.61 10^6/uL (4.35-5.55); RETICULOCYTE COUNT (AUTO) 1.15 % (0.66-2.85); WHITE BLOOD COUNT 12.1 10^3/uL (4.0-10.5)
[2018-06-17 05:56] LABS: ANION GAP 8 (5-19); BLOOD UREA NITROGEN 48 mg/dL (7-20); CALCIUM 8.9 mg/dL (8.4-10.2); CARBON DIOXIDE 23 mmol/L (22-30); CHLORIDE 107 mmol/L (98-107); GLUCOSE 123 mg/dL (75-110); IRON(TIBC) 61.3 ug/dL (49-181); POTASSIUM 3.9 mmol/L (3.6-5.0); SODIUM 137.8 mmol/L (137-145)
[2018-06-17] MEDS: LEVOTHYROXINE SODIUM 0.1 MG TABLET PO SCH (07:35)
[2018-06-17] MEDS: PANTOPRAZOLE SODIUM 20 MG TABLET.DR PO SCH (07:35)
[2018-06-17] MEDS: LEVOTHYROXINE SODIUM 0.05 MG TABLET PO SCH (07:35)
[2018-06-17] MEDS: METHYLPREDNISOLONE INJ 40 MG/1 ML SDV IV SCH ×2 (07:36→14:08)
[2018-06-17] MEDS: IPRATROPIUM/ALBUTEROL 0.5-2.5 MG/3 ML AMPUL NEB SCH (07:50)
[2018-06-17] MEDS: ENOXAPARIN SODIUM INJ 30 MG/0.3 ML DISP.SYRIN SUBCUT SCH (09:06)
[2018-06-17] MEDS: FLUTICASONE NASAL SPRAY 50 MCG/SPRY 120 SPRAY/16 GM NASL SCH (09:06)
[2018-06-17] MEDS: CYANOCOBALAMIN (VITAMIN B-12) 1,000 MCG TABLET PO SCH (09:06)
[2018-06-17] MEDS: CARVEDILOL 12.5 MG TABLET PO SCH (09:06)
[2018-06-17] MEDS: ASPIRIN 81 MG TABLET, ENT COATED PO SCH (09:06)
[2018-06-17] MEDS: TAMSULOSIN HCL 0.4 MG CAP.SR.24H PO SCH (09:06)
[2018-06-17] MEDS: FAMOTIDINE 20 MG TABLET PO SCH (09:06)
[2018-06-17] MEDS: FERROUS SULFATE 325 MG TABLET PO SCH (09:06)
[2018-06-17] MEDS: GUAIFENESIN 600 MG TABLET.SA PO SCH (09:06)
[2018-06-17] MEDS: DILTIAZEM HCL 240 MG CAPSULE.CR PO SCH (09:06)
[2018-06-17] MEDS ORDERED: ALPRAZOLAM 0.25 MG TABLET PO PRN (10:12)
[2018-06-17] MEDS ORDERED: ESCITALOPRAM OXALATE 10 MG TABLET PO SCH (10:15)
[2018-06-17 11:10] LABS: ALANINE AMINOTRANSFERASE 20 U/L (21-72); ALBUMIN 2.6 g/dL (3.5-5.0); ALKALINE PHOSPHATASE 73 U/L (38-126); ASPARTATE AMINO TRANSFERASE 16 U/L (17-59); BILIRUBIN,DIRECT 0.2 mg/dL (0.0-0.4); BILIRUBIN,TOTAL 0.2 mg/dL (0.2-1.3)
[2018-06-17] MEDS ORDERED: FUROSEMIDE INJ/PF 20 MG/2 ML SDV IV ONE (13:30)
--- NOTE | 2018-06-17 13:32 | RADIOLOGY REPORT (SQ) ---
EXAM DESCRIPTION: CHEST SINGLE VIEW COMPLETED DATE/TIME: 06/17/2018 1:08 pm REASON FOR STUDY: Rt pleural effusion; hypoxia COMPARISON: 06/15/2018 EXAM PARAMETERS: NUMBER OF VIEWS: One view. TECHNIQUE: Single frontal radiographic view of the chest acquired. RADIATION DOSE: NA LIMITATIONS: None. FINDINGS: LUNGS AND PLEURA: Bilateral pleural effusions, right more than left. MEDIASTINUM AND HILAR STRUCTURES: No masses. Contour normal. HEART AND VASCULAR STRUCTURES: Heart size is borderline. BONES: No acute findings. HARDWARE: None in the chest. OTHER: No other significant finding. IMPRESSION: Borderline cardiomegaly. Right pleural effusion is larger than a left pleural effusion. TECHNICAL DOCUMENTATION: JOB ID: [id number] [email or web address]- All Rights Reserved Reading location - IP/workstation name: [email or web address]
[2018-06-17 17:16] VITALS: BP 137/74
[2018-06-17] MEDS ORDERED: BUSPIRONE HCL 10 MG TABLET PO SCH (22:00)
[2018-06-17] MEDS ORDERED: LOSARTAN POTASSIUM 25 MG TABLET PO SCH (22:00)
[2018-06-18] MEDS ORDERED: BUSPIRONE HCL 10 MG TABLET PO SCH (08:00)
[2018-06-18] MEDS ORDERED: FUROSEMIDE 20 MG TABLET PO SCH (10:00)
[2018-06-18] MEDS ORDERED: LEVOFLOXACIN 750 MG TABLET PO SCH (10:00)
--- NOTE | 2018-06-18 21:36 | XCELERA REPORT ---
[address] [address] Transthoracic Echocardiogram Report Name: EYAL ELLER Age: 77 yrs Gender: Male : 1940 Patient Status: Inpatient Patient Location: [facility]^A Study Date: 06/17/2018 10:42 AM Height: 69 in Weight: 139 lb BSA: 1.8 m2 Procedure: A two-dimensional transthoracic echocardiogram with color flow and Doppler was performed. Study Quality: Fair. Reason For Study: anasarca and pleural effusion History: anasarca and pleural effusion. Ordering Physician: NAHUM CAMPBELL Performed By: Felecia Alexis Interpretation Summary The left ventricle is normal in size. There is normal left ventricular wall thickness. The left ventricular ejection fraction is within normal limits. LV EF is 60% Doppler measurements suggest impaired left ventricular relaxation, which is associated with grade I/IV or mild diastolic dysfunction The left ventricular wall motion is normal. No defenite ASD , VSD . or PFO seen. The right ventricular systolic function is normal. The right ventricle is borderline dilated. The right atrium is normal. The left atrial size is normal. There is no evidence of mitral valve prolapse. There is no vegetation seen on the mitral valve. There is a moderate to severe amount of mitral regurgitation There is no aortic valvular vegetation. There is no aortic valve stenosis There is no LVOT obstruction. There is a mild amount of aortic regurgitation There is no tricuspid stenosis. There is a mild amount of tricuspid regurgitation RVSP is 35 mm of Hg , with RA mean of 10. There is mild pulmonary hypertension by echo There is no pulmonic valvular stenosis. There is no pulmonic valvular regurgitation. Minimal pericardial effusion. Large left pleural effusion. MMode/2D Measurements & Calculations RVDd: 4.3 cm LVIDd: 5.0 cm FS: 31.8 % Ao root diam: 4.2 cm IVSd: 1.1 cm LVIDs: 3.4 cm EDV(Teich): Ao root area: LVPWd: 1.1 cm 117.6 ml 13.9 cm2 ESV(Teich): LA dimension: 3.3 cm 47.4 ml EF(Teich): 59.7 % LVLd ap4: 8.0 cm SV(MOD-sp4): EDV(MOD-sp4): 80.0 ml 129.0 ml LVLs ap4: 6.7 cm ESV(MOD-sp4): 49.0 ml EF(MOD-sp4): 62.0 % Doppler Measurements & Calculations MV E max curtis: MV P1/2t max curtis: Ao V2 max: AI max curtis: 59.2 cm/sec 58.7 cm/sec 131.7 cm/sec 556.3 cm/sec MV A max curtis: MV P1/2t: 112.4 msec Ao max PG: AI max P.9 cm/sec MVA(P1/2t): 2.0 cm2 6.9 mmHg 123.8 mmHg MV E/A: 0.71 MV dec slope: AI dec slope: 153.0 cm/sec2 312.1 cm/sec2 MV dec time: AI P1/2t: 0.37 sec 522.1 msec LV V1 max PG: PA V2 max: TR max curtis: AV P1/2t-pr_phl: 4.9 mmHg 76.0 cm/sec 250.8 cm/sec 522.1 msec LV V1 max: PA max P.3 mmHg TR max P.1 cm/sec 25.2 mmHg MV P1/2t-pr_phl: 112.4 msec Left Ventricle The left ventricle is normal in size. There is normal left ventricular wall thickness. The left ventricular ejection fraction is within normal limits. LV EF is 60%. Doppler measurements suggest impaired left ventricular relaxation, which is associated with grade I/IV or mild diastolic dysfunction. The left ventricular wall motion is normal. No defenite ASD , VSD . or PFO seen. Right Ventricle The right ventricle is borderline dilated. The right ventricular systolic function is normal. Atria The right atrium is normal. The left atrial size is normal. Mitral Valve There is no evidence of mitral valve prolapse. There is no vegetation seen on the mitral valve. There is no mitral valve stenosis. There is a moderate to severe amount of mitral regurgitation. Aortic Valve There is no aortic valvular vegetation. There is no aortic valve stenosis. There is no LVOT obstruction. There is a mild amount of aortic regurgitation. Tricuspid Valve There is no tricuspid stenosis. There is a mild amount of tricuspid regurgitation. RVSP is 35 mm of Hg , with RA mean of 10. There is mild pulmonary hypertension by echo. Pulmonic Valve There is no pulmonic valvular stenosis. There is no pulmonic valvular regurgitation. Great Vessels The aortic root is not well visualized. Effusions Minimal pericardial effusion. Large left pleural effusion. : NAHUM CAMPBELL > Magdalena Mcclellan
--- NOTE | 2018-06-22 10:03 | PDOC DISCHARGE SUMMARY ---
General - Admit/Disc Date/PCP Admission Date/Primary Care Provider: 06/13/18 03:54 RITCHIE HENLEY MD Discharge Date: 06/17/18 - Discharge Diagnosis (1) Acute respiratory failure Is this a current diagnosis for this admission?: Yes Summary: Resolved. Now ambulatory on room air. Repeat CXR shows worsening right pleural effusion Secondary to COPD exacerbation stemming from PNA and b/l pleural effusions. Now questionable malignancy as pleural fluid was serosanguineous; cytology is pen ding. He was admitted to the medical floor on continuous cardiac telemetry and supported with supplemental oxygen as needed to maintain oxygen saturations >89%, scheduled and as needed nebulizer treatments, and pulmonary toilet. He was treated with Levaquin for PNA and provided steroid therapy and mucinex for COPD exacerbation. His symptoms have improved significantly and patient is now requesting to be discharged home. At time of discharge, he is in stable condition and maintaining oxygen sat urations while ambulatory on room air. He is encouraged to follow up with his PCP within 1 week, with Dr. 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 Hernandez, as scheduled. He is provided prescriptions to complete his course of antibiotics, a steroid taper, and for nebulizer machine and Duonebs to use as needed for shortness of breath (for management of COPD). He is instructed to return to the emergency department as needed for concerning symptoms. (2) Acute kidney injury superimposed on chronic kidney disease Is this a current diagnosis for this admission?: Yes Summary: Improving 2.7-->2.41--> 2.53-> 2.33-> 1.79 Patient's baseline Creatinine 1.5 FeNa 1.46% Continue to avoid nephrotoxic medications as able (NSAIDS). Nephrology was been consulted, appreciate their recommendations. Recommend follow up chemistry at appointment with PCP. (3) COPD exacerbation Is this a current diagnosis for this admission?: Yes Summary: COPD exacerbation is secondary to CAP and development of moderate pleural effusions. He was supported with supplemental oxygen, scheduled and as needed nebulizer treatments and IV Solu-Medrol; he is transitioned to p.o prednisone to continue weaning post-discharge. Continue Mucinex twice daily. (4) Community acquired pneumonia Is this a current diagnosis for this admission?: Yes Summary: Improved; clinically improved, patient reports decreased symptoms, now maintaining oxygen saturations while ambulatory on room air. As seen on CXR and CT scan Leukocytosis is improved 8-->14--> 17.7-> 15.8; remains afebrile and clinically improved. Patient was empirically placed on IV Levaquin for treatment of CAP; has been transitioned to p.o. to complete course of therapy. (5) Pleural effusion, right Is this a current diagnosis for this admission?: Yes Summary: R sided pleural effusion Presumed secondary to CHF, BNP 1650 (no previous results to compare); however, did not respond to diuresis and on thoracentesis was found to be serosanguineous concerning for malignancy. Laboratory evaluation shows cloudy, slightly viscous fluid with WBCs 333, RBC is 29K, glucose, LDH, amylase were nonrevealing. Pleural effusion cultures have no growth. Cytology pending. CT chest, CT abdomen pelvis with contrast were negative for masses/concerning evidence for malignancy. Echocardiogram is reassuring; LVEF 60%, mild diastolic dysfunction, and mild pulmonary hypertension. Have consulted oncology; has a follow up appointment with Dr. Grullon on Thursday to review cytology results. Follow up with established framing mill operator helper, Dr. Hernandez, as scheduled. (6) Hypothyroidism Is this a current diagnosis for this admission?: Yes Summary: TSH elevated to 34 Low T3 normal T4 Patient already on Synthroid 225mcg daily Increased dose to 250mcg daily Will need to follow up with PCP for TSH monitoring - Additional Information Resuscitation Status: Full Code Discharge Diet: Cardiac, Diabetic Discharge Activity: Activity As Tolerated, Balance Activity w/Rest, Weigh Daily Prescriptions: Alprazolam [Xanax 0.5 mg Tablet] 0.5 mg PO Q8HP PRN #9 tab PRN Reason: Buspirone HCl [Buspar 5 mg Tablet] 1 tab PO ASDIR PRN #45 tab PRN Reason: Furosemide [Lasix 20 mg Tablet] 20 mg PO DAILY #30 tablet Guaifenesin [Mucinex Sr 600 mg Tablet.sa] 600 mg PO Q12 #14 tablet.sa Ipratropium/Albuterol Sulfate [Duoneb 3 ml Ampul] 3 ml NEB Q6HP PRN #120 vial.neb PRN Reason: Levofloxacin [Levaquin 750 mg Tablet] 750 mg PO DAILY #3 tablet Nebulizer [Nebulizer Machine] 1 each MC ASDIR PRN #1 kit PRN Reason: Prednisone [Deltasone 20 mg Tablet] 60 mg PO DAILY #9 tablet Home Medications: Albuterol Sulfate [Proair HFA] 2 puff IH Q4HP PRN 07/12/16 Amitriptyline HCl [Elavil 25 mg Tablet] 25 mg PO QHS 07/12/16 Hydralazine HCl [Apresoline 25 mg Tablet] 25 mg PO QHS 07/12/16 Levothyroxine Sodium [Synthroid] 25 mcg PO QAM 07/12/16 Levothyroxine Sodium [Synthroid] 200 mcg PO QAM 07/12/16 Tamsulosin HCl [Flomax 0.4 mg Cap.sr] 0.4 mg PO DAILY 07/12/16 Aspirin [Ecotrin] 81 mg PO DAILY 06/13/18 Brinzolamide/Brimonidine Tart [Simbrinza 1%-0.2% Eye Drops] 1 drop OD DAILY 06/13/18 Brinzolamide/Brimonidine Tart [Simbrinza 1%-0.2% Eye Drops] 1 drop OS Q12 06/13/18 Carvedilol [Coreg 12.5 mg Tablet] 12.5 mg PO Q12 06/13/18 Cyanocobalamin (Vitamin B-12) [Vitamin B-12] 1,000 mcg PO DAILY 06/13/18 Cyclobenzaprine HCl [Flexeril 10 mg Tablet] 10 mg PO Q12HP PRN 06/13/18 Diltiazem HCl [Cardizem Cd 240 mg Capsule.cr] 240 mg PO Q12 06/13/18 Fluticasone Propionate [Flonase Nasal Jasper 50 Mcg/Jasper 16 gm] 2 spray NASL DAILY 06/13/18 Iron 65 65 mg PO DAILY 06/13/18 Losartan Potassium [Cozaar 25 mg Tablet] 25 mg PO Q12 06/13/18 Nitroglycerin [Nitrostat 0.4 mg (1/150 Gr) Tabs 25/Bottle] 1 tab PO DAILYP PRN 06/13/18 Pantoprazole Sodium [Protonix [address] Tablet] 20 mg PO QAM 06/13/18 Rosuvastatin Calcium 5 mg PO Q2D 06/13/18 Tramadol HCl [Ultram 50 mg Tablet] 50 mg PO TIDP PRN 06/13/18 Acetaminophen [Tylenol 325 mg Tablet] 650 mg PO Q4HP PRN tablet 06/17/18 Alprazolam [Xanax 0.5 mg Tablet] 0.5 mg PO Q8HP PRN #9 tab 06/17/18 Buspirone HCl [Buspar 5 mg Tablet] 1 tab PO ASDIR PRN #45 tab 06/17/18 Furosemide [Lasix 20 mg Tablet] 20 mg PO DAILY #30 tablet 06/17/18 Guaifenesin [Mucinex Sr 600 mg Tablet.sa] 600 mg PO Q12 #14 tablet.sa 06/17/18 Ipratropium/Albuterol Sulfate [Duoneb 3 ml Ampul] 3 ml NEB Q6HP PRN #120 vial.neb 06/17/18 Levofloxacin [Levaquin 750 mg Tablet] 750 mg PO DAILY #3 tablet 06/17/18 Nebulizer [Nebulizer Machine] 1 each MC ASDIR PRN #1 kit 06/17/18 Prednisone [Deltasone 20 mg Tablet] 60 mg PO DAILY #9 tablet 06/17/18 History of Present Illness History of Present Illness: EYAL ELLER is a 77 year old male Physical Exam Vital Signs: Temp Pulse Resp BP Pulse Ox 97.3 F 70 18 137/74 H 95 06/17/18 17:15 06/17/18 17:15 06/17/18 17:15 06/17/18 17:15 06/17/18 17:15 Intake & Output 06/17/18 06/18/18 06/19/18 06:59 06:59 06:59 Intake Total 1776 Balance 1776 Weight 63.3 kg General appearance: PRESENT: no acute distress, cooperative, well-developed, well-nourished Head exam: PRESENT: atraumatic, normocephalic Eye exam: PRESENT: conjunctiva pink, EOMI, PERRLA. ABSENT: scleral icterus Ear exam: PRESENT: normal external ear exam Mouth exam: PRESENT: moist, tongue midline Neck exam: ABSENT: carotid bruit, JVD, lymphadenopathy, thyromegaly Respiratory exam: PRESENT: clear to auscultation brenda, decreased breath sounds - bibasilar; improved, symmetrical, unlabored. ABSENT: rales, rhonchi, wheezes Cardiovascular exam: PRESENT: RRR. ABSENT: diastolic murmur, rubs, systolic murmur Pulses: PRESENT: normal dorsalis pedis pul Vascular exam: PRESENT: normal capillary refill GI/Abdominal exam: PRESENT: normal bowel sounds, soft. ABSENT: distended, guarding, mass, organolmegaly, rebound, tenderness Rectal exam: PRESENT: deferred Extremities exam: PRESENT: full ROM. ABSENT: calf tenderness, clubbing, pedal edema Neurological exam: PRESENT: alert, awake, oriented to person, oriented to place, oriented to time, oriented to situation, CN II-XII grossly intact. ABSENT: motor sensory deficit Psychiatric exam: PRESENT: appropriate affect, normal mood. ABSENT: homicidal ideation, suicidal ideation Skin exam: PRESENT: dry, intact, warm. ABSENT: cyanosis, rash Results Laboratory Results: 06/17/18 04:11 06/17/18 04:11 06/17/18 04:11 Total Bilirubin 0.2 AST 16 L ALT 20 L Alkaline Phosphatase 73 Total Protein 6.0 L Albumin 2.6 L 06/13/18 06/17/18 02:04 04:11 Troponin I < 0.012 NT-Pro-B Natriuret Pep 1640 H 4060 H Impressions: Thoracentesis Ultrasound 06/15/18 00:00 IMPRESSION: SUCCESSFUL RIGHT DIAGNOSTIC AND THERAPEUTIC THORACENTESIS USING ULTRASOUND GUIDANCE. Abdomen/Pelvis CT 06/16/18 00:00 IMPRESSION: 1. Moderate to large right pleural effusion and small left pleural effusion, not significantly changed from prior examination. Associated atelectasis or consolidation of the dependent bilateral lungs without obvious mass on noncontrast examination. 2. Emphysema. 3. 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 4. Small pericardial effusion. 5. Coronary artery disease. IMPRESSION: 1. No obvious noncontrast CT findings to explain hematochezia. Postoperative findings of left colectomy with anastomosis in the right upper quadrant. The colon is fluid-filled to the rectum. Consider direct colonoscopic evaluation to further evaluate unexplained hematochezia. 2. Hepatosplenomegaly. 3. Anasarca. Chest CT 06/16/18 00:00 IMPRESSION: 1. Moderate to large right pleural effusion and small left pleural effusion, not significantly changed from prior examination. Associated atelectasis or consolidation of the dependent bilateral lungs without obvious mass on noncontrast examination. 2. Emphysema. 3. 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 4. Small pericardial effusion. 5. Coronary artery disease. IMPRESSION: 1. No obvious noncontrast CT findings to explain hematochezia. Postoperative findings of left colectomy with anastomosis in the right upper quadrant. The colon is fluid-filled to the rectum. Consider direct colonoscopic evaluation to further evaluate unexplained hematochezia. 2. Hepatosplenomegaly. 3. Anasarca. Chest X-Ray 06/17/18 12:27 IMPRESSION: Borderline cardiomegaly. Right pleural effusion is larger than a left pleural effusion. Qualifiers - * PATIENT BEING DISCHARGED WITH ANY OF THE FOLLOWING DIAGNOSIS: No Plan Discharge Plan: Follow up with your primary care provider within 1 week. Follow up with Dr. Grullon on Thursday at 2 pm. Follow up with Dr. Hernandez as scheduled. Weigh yourself daily; report any weight gain of more than [address] Hernandez. Eat a low sodium diet. Return to the emergency department as needed for concerning symptoms. Time Spent: Greater than 30 Minutes
== END 2018-06-17 17:50 | disposition home or self-care (01) | DRG 190 ==
LOC: ER 01:55 → EH 03:54 → 3N 06:02
PROVIDERS: ADMIT Family Medicine; ATTEND Family Medicine
PROC: 5A09357 Assistance with Respiratory Ventilation, Less than 24 Consecutive Hours, Continuous Positive Airway Pressure (ICD-10-PCS; 2018-06-13)
PROC: 3E0F3GC Introduction of Other Therapeutic Substance into Respiratory Tract, Percutaneous Approach (ICD-10-PCS; 2018-06-13)
PROC: 0W993ZX Drainage of Right Pleural Cavity, Percutaneous Approach, Diagnostic (ICD-10-PCS; principal; 2018-06-15)
DX: J44.0 Chronic obstructive pulmonary disease with (acute) lower respiratory infection (principal); J96.00 Acute respiratory failure, unspecified whether with hypoxia or hypercapnia; J18.1 Lobar pneumonia, unspecified organism; K57.92 Diverticulitis of intestine, part unspecified, without perforation or abscess without bleeding; N17.9 Acute kidney failure, unspecified; J90 Pleural effusion, not elsewhere classified; I27.20 Pulmonary hypertension, unspecified; I27.81 Cor pulmonale (chronic); D63.1 Anemia in chronic kidney disease; D50.9 Iron deficiency anemia, unspecified; I25.10 Atherosclerotic heart disease of native coronary artery without angina pectoris; J44.1 Chronic obstructive pulmonary disease with (acute) exacerbation; E78.5 Hyperlipidemia, unspecified; E03.9 Hypothyroidism, unspecified; K21.9 Gastro-esophageal reflux disease without esophagitis; M19.90 Unspecified osteoarthritis, unspecified site; I12.9 Hypertensive chronic kidney disease with stage 1 through stage 4 chronic kidney disease, or unspecified chronic kidney disease; N18.9 Chronic kidney disease, unspecified; R44.1 Visual hallucinations; I25.2 Old myocardial infarction; Z90.49 Acquired absence of other specified parts of digestive tract; Z87.891 Personal history of nicotine dependence; Z88.0 Allergy status to penicillin; Z91.048 Other nonmedicinal substance allergy status; Z79.82 Long term (current) use of aspirin
CPT/HCPCS: 32555; 36415; 71045; 71250; 74176; 80048; 80053; 80076; 81001; 82150; 82570; 82607; 82728; 82746; 82803; 82945; 82962; 83540; 83550; 83605; 83615; 83735; 83880; 84300; 84439; 84443; 84481; 84484; 85025; 85027; 85045; 85610; 85730; 87070; 87075; 87205; 88305; 89050; 93005; 93010; 93306; 94640; 94660; 96365; 96375; 99291; J1650; J1815; J1940; J1956; J2405; J2920; J2930; J3475; J3490; J7620

== ENCOUNTER 2018-07-10 12:28 | Inpatient (IN) | payer MEDICARE, OTHER ==
[2018-07-10 13:06] LABS: ABSOLUTE EOSINOPHILS # (AUTO) 0.4 10^3/uL (0.0-0.6); ABSOLUTE LYMPHOCYTES (AUTO) 1.5 10^3/uL (0.5-4.7); ABSOLUTE MONOCYTES (AUTO) 0.6 10^3/uL (0.1-1.4); ABSOLUTE NEUT (AUTO) 3.3 10^3/uL (1.7-8.2); BASOPHILS % (AUTO) 0.2 % (0-2); EOSINOPHILS % (AUTO) 6.6 % (0-6); HEMATOCRIT 31.2 % (37.9-51.0); HEMOGLOBIN 10.3 g/dL (13.5-17.0); INTERNATIONAL RATION (INR) 0.93; LYMPHOCYTES % (AUTO) 26.7 % (13-45); MEAN CORPUSCULAR HEMOGLOBIN 29.8 pg (27.0-33.4); MEAN CORPUSCULAR HGB CONC 32.9 g/dL (32.0-36.0); MEAN CORPUSCULAR VOLUME 90 fl (80-97); MONOCYTES % (AUTO) 9.6 % (3-13); PLATELET COUNT 186 10^3/uL (150-450); RED BLOOD COUNT 3.46 10^6/uL (4.35-5.55); RED CELL DISTRIBUTION WIDTH 15.2 % (11.5-14.0); SEGMENTED NEUTROPHILS % (AUTO) 56.9 % (42-78); TOTAL CELLS COUNTED % (AUTO) 100 %; WHITE BLOOD COUNT 5.8 10^3/uL (4.0-10.5)
--- NOTE | 2018-07-10 13:09 | RADIOLOGY REPORT (SQ) ---
EXAM DESCRIPTION: CHEST SINGLE VIEW COMPLETED DATE/TIME: 07/10/2018 12:51 pm REASON FOR STUDY: bed 4 sepsis protocol COMPARISON: 07/06/2018 TECHNIQUE: Single frontal radiographic view of the chest acquired. NUMBER OF VIEWS: One view. LIMITATIONS: None. FINDINGS: LUNGS AND PLEURA: No pneumothorax. Slightly increased right basilar consolidation - pleur al effusion. New focal opacity along the left hemidiaphragm, possible new effusion-airspace disease. MEDIASTINUM AND HILAR STRUCTURES: Stable. HEART AND VASCULAR STRUCTURES: Stable. BONES: No acute findings. HARDWARE: None in the chest. OTHER: No other significant finding. IMPRESSION: Slightly increased right basilar consolidation - pleural effusion. New focal opacity shaq ng the lateral left hemidiaphragm, possible new effusion-airspace disease. TECHNICAL DOCUMENTATION: JOB ID: [id number] [id number] [employer]- All Rights Reserved Reading location - IP/workstation name: [email or web address]
[2018-07-10 13:12] LABS: ALANINE AMINOTRANSFERASE 21 U/L (21-72); ALBUMIN 3.2 g/dL (3.5-5.0); ALKALINE PHOSPHATASE 90 U/L (38-126); ANION GAP 12 (5-19); ASPARTATE AMINO TRANSFERASE 20 U/L (17-59); BILIRUBIN,DIRECT 0.3 mg/dL (0.0-0.4); BILIRUBIN,TOTAL 0.4 mg/dL (0.2-1.3); BLOOD UREA NITROGEN 20 mg/dL (7-20); CALCIUM 8.6 mg/dL (8.4-10.2); CARBON DIOXIDE 29 mmol/L (22-30); CHLORIDE 99 mmol/L (98-107); GLUCOSE 103 mg/dL (75-110); POTASSIUM 3.7 mmol/L (3.6-5.0); SODIUM 139.9 mmol/L (137-145); TOTAL PROTEIN 6.4 g/dL (6.3-8.2)
[2018-07-10 13:12] LABS: VENOUS BLOOD BASE EXCESS 3.4 mmol/L; VENOUS BLOOD PCO2 58.5 mmHg (35-63); VENOUS BLOOD PH 7.34 (7.30-7.42)
--- NOTE | 2018-07-10 13:29 | ER Document Report ---
ED General - General Chief Complaint: Shortness Of Breath Stated Complaint: DIFFICULTY BREATHING Time Seen by Provider: 07/10/18 12:52 Mode of Arrival: Ambulatory Information source: Patient, Relative, [facility] Records Notes: 77-year-old male with COPD, acute respiratory failure on continuous oxygen during, hypertension, coronary artery disease, known recurrent pleural effusion presents with shortness of breath that started this morning. Patient states that he has become more short of breath despite continuous oxygen. He states shortness of breath is worse with exertion. Reports a nonproductive cough that is the patient's baseline. Patient's recent hospital admission in June required a thoracentesis where they removed fluid from his right lung. TRAVEL OUTSIDE OF THE [place] IN LAST 30 DAYS: No - HPI Onset: This morning Onset/Duration: Sudden Quality of pain: No pain Severity: None Pain Level: Denies Associated symptoms: None - Related Data Allergies/Adverse Reactions: iodine [Iodine] Allergy (Mild, Verified 08/13/16 07:59) itching, burning Penicillins Allergy (Mild, Verified 08/13/16 07:59) welts, nausea, nomiting Past Medical History - Social History Smoking Status: Former Smoker Family History: Reviewed & Not Pertinent Patient has suicidal ideation: No Patient has homicidal ideation: No - Past Medical History Cardiac Medical History: Reports: Hx Coronary Artery Disease, Hx Heart Attack, Hx Hypercholesterolemia, Hx Hypertension Pulmonary Medical History: Reports: Hx COPD Denies: Hx Asthma, Hx Bronchitis, Hx Pneumonia Neurological Medical History: Denies: Hx Cerebrovascular Accident, Hx Seizures Endocrine Medical History: Reports: Hx Hypothyroidism Renal/ Medical History: Reports: Hx Benign Prostatic Hyperplasia. Denies: Hx Peritoneal Dialysis GI Medical History: Reports: Hx Diverticulitis, Hx Gastroesophageal Reflux Dis ease Musculoskeletal Medical History: Reports Hx Arthritis Past Surgical History: Reports: Hx Abdominal Surgery - colectomy, Hx Appendectomy, Other - Back Surgery (Patient is unsure what type) also had a partial colectomy. Denies: Hx Pacemaker - Immunizations Hx Diphtheria, Pertussis, Tetanus Vaccination: No Hx Pneumococcal Vaccination: 12/07/16 Physical Exam - Vital signs Vitals: Temp Resp BP Pulse Ox 97.8 F 22 H 114/64 97 07/10/18 12:38 07/10/18 12:38 07/10/18 12:38 07/10/18 12:38 Course - Re-evaluation Re-evalutation: 07/10/18 15:30 Laboratory 07/10/18 07/10/18 07/10/18 12:00 12:00 12:00 WBC 5.8 RBC 3.46 L Hgb 10.3 L Hct 31.2 L MCV 90 MCH 29.8 MCHC 32.9 RDW 15.2 H Plt Count 186 Seg Neutrophils % 56.9 Lymphocytes % 26.7 Monocytes % 9.6 Eosinophils % 6.6 H Basophils % 0.2 Absolute Neutrophils 3.3 Absolute Lymphocytes 1.5 Absolute Monocytes 0.6 Absolute Eosinophils 0.4 Absolute Basophils 0.0 PT 13.0 INR 0.93 VBG pH VBG pCO2 VBG HCO3 VBG Base Excess Sodium 139.9 Potassium 3.7 Chloride 99 Carbon Dioxide 29 Anion Gap 12 BUN 20 Creatinine 1.94 H Est GFR ( Amer) 41 L Est GFR (Non-Af Amer) 34 L Glucose 103 Lactic Acid Calcium 8.6 Total Bilirubin 0.4 Direct Bilirubin 0.3 Neonat Total Bilirubin Not Reportable Neonat Direct Bilirubin Not Reportable Neonat Indirect Bili Not Reportable AST 20 ALT 21 Alkaline Phosphatase 90 Troponin I NT-Pro-B Natriuret Pep Total Protein 6.4 Albumin 3.2 L 07/10/18 07/10/18 07/10/18 12:00 12:00 12:45 WBC RBC Hgb Hct MCV MCH MCHC RDW Plt Count Seg Neutrophils % Lymphocytes % Monocytes % Eosinophils % Basophils % Absolute Neutrophils Absolute Lymphocytes Absolute Monocytes Absolute Eosinophils Absolute Basophils PT INR VBG pH VBG pCO2 VBG HCO3 VBG Base Excess Sodium Potassium Chloride Carbon Dioxide Anion Gap BUN Creatinine Est GFR ( Amer) Est GFR (Non-Af Amer) Glucose Lactic Acid 1.2 Calcium Total Bilirubin Direct Bilirubin Neonat Total Bilirubin Neonat Direct Bilirubin Neonat Indirect Bili AST ALT Alkaline Phosphatase Troponin I < 0.012 NT-Pro-B Natriuret Pep 4200 H Total Protein Albumin 07/10/18 12:45 WBC RBC Hgb Hct MCV MCH MCHC RDW Plt Count Seg Neutrophils % Lymphocytes % Monocytes % Eosinophils % Basophils % Absolute Neutrophils Absolute Lymphocytes Absolute Monocytes Absolute Eosinophils Absolute Basophils PT INR VBG pH 7.34 VBG pCO2 58.5 VBG HCO3 31.0 VBG Base Excess 3.4 Sodium Potassium Chloride Carbon Dioxide Anion Gap BUN Creatinine Est GFR ( Amer) Est GFR (Non-Af Amer) Glucose Lactic Acid Calcium Total Bilirubin Direct Bilirubin Neonat Total Bilirubin Neonat Direct Bilirubin Neonat Indirect Bili AST ALT Alkaline Phosphatase Troponin I NT-Pro-B Natriuret Pep Total Protein Albumin Chest X-Ray 07/10/18 12:30 IMPRESSION: Slightly increased right basilar consolidation - pleural effusion. New focal opacity along the lateral left hemidiaphragm, possible new effusion- airspace disease. Chest CT 07/10/18 13:17 IMPRESSION: Slightly increased large right pleural effusion and lower lobe atelectasis -airspace disease. Similar patchy -ground-glass and nodular opacities in the right upper lobe. Despite the radiographic appearance, the left pleural effusion has slightly diminished compared with the prior exam with minimal lateral segment left lower lobe subsegmental atelectasis. Temp Pulse Resp BP Pulse Ox 97.8 F 22 H 114/64 97 07/10/18 12:46 07/10/18 12:38 07/10/18 12:38 07/10/18 12:38 77-year-old male presents with complaint of shortness of breath. Patient does have COPD and is on continuous home oxygen but states that over the last 3 days he has had significantly worsening shortness of breath with mild exertion. He does state that he has had some leg swelling, nonproductive cough. Patient was admitted to [facility] on 06/13/2018 where he was found to have a right-sided pleural effusion. Patient did undergo a thoracentesis and cytology was sent which did not show any evidence of carcinoma. Patient also had an ech ocardiogram performed on June 172018 which showed an EF of 60%CT of the chest was obtained and showed a slight increase in his right-sided pleural effusion which they described as large. Patient reports that he has a PET scan scheduled on July 13 that was ordered by Dr. Grullon. Denies any known diagnosis of lung cancer. 07/10/18 16:40 Patient has been accepted by Dr. Kramer for admission. - Vital Signs Vital signs: Temp Pulse Resp BP Pulse Ox 97.8 F 22 H 114/64 97 07/10/18 12:46 07/10/18 12:38 07/10/18 12:38 07/10/18 12:38 - Laboratory Result Diagrams: 07/10/18 12:00 07/10/18 12:00 Laboratory results interpreted by me: 07/10/18 07/10/18 07/10/18 12:00 12:00 12:00 RBC 3.46 L Hgb 10.3 L Hct 31.2 L RDW 15.2 H Eosinophils % 6.6 H Creatinine 1.94 H Est GFR ( Amer) 41 L Est GFR (Non-Af Amer) 34 L NT-Pro-B Natriuret Pep 4200 H Albumin 3.2 L - Diagnostic Test Radiology reviewed: Image reviewed, Reports reviewed - EKG Interpretation by Me EKG shows normal: Sinus rhythm Rate: Tachycardia Rhythm: NSR Heart block present: 1st Degree When compared to previous EKG there are: No significant change Discharge - Discharge Clinical Impression: Pleural effusion, Acute kidney injury superimposed on chronic kidney disease, Pleural effusion, right Dyspnea Qualifiers: Dyspnea type: dyspnea on exertion Qualified Code(s): R06.09 - Other forms of dyspnea COPD (chronic obstructive pulmonary disease) Qualifiers: COPD type: unspecified COPD Qualified Code(s): J44.9 - Chronic obstructive pulmonary disease, unspecified Condition: Good Disposition: ADMITTED INPATIENT Admitting Provider: Nia (Hospitalist) Unit Admitted: Telemetry
--- NOTE | 2018-07-10 14:29 | RADIOLOGY REPORT (SQ) ---
EXAM DESCRIPTION: CT CHEST WITHOUT COMPLETED DATE/TIME: 07/10/2018 2:07 pm REASON FOR STUDY: sob ? new pneumonia left COMPARISON: 06/16/2018 TECHNIQUE: CT scan performed of the chest without intravenous contrast. Images reviewed with lung, soft tissue and bone windows. Reconstructed coronal and sagittal MPR images reviewed. All images st ored on PACS. All CT scanners at this facility use dose modulation, iterative reconstruction, and/or weight based d osing when appropriate to reduce radiation dose to as low as reasonably achievable (ALARA). [facility]: Dose Right [facility]: CareDose [facility]: Dose Right [facility]: Teradose 4D [facility]: Smart [place] RADIATION DOSE: CT Rad equipment meets quality standard of care and radiation dose reduction techniq ues were employed. CTDIvol: 5.9 mGy. DLP: 251 mGy-cm. mGy. LIMITATIONS: No technical limitations. FINDINGS: LUNGS AND PLEURA: Slightly increased large right pleural effusion and lower lobe atelectas is -airspace disease. Similar patchy -ground-glass and nodular opacities in the right upper lobe. D espite the radiographic appearance, the left pleural effusion has slightly diminished compared with t he prior exam with minimal lateral segment left lower lobe subsegmental atelectasis. HILAR AND MEDIASTINAL STRUCTURES: Similar mild adenopathy. Similar aortic aneurysm. HEART AND VASCULAR STRUCTURES: Similar aortic aneurysm -stent graft. No pericardial effusion. UPPER ABDOMEN: No acute findings. Limited exam. THYROID AND OTHER SOFT TISSUES: No masses. No adenopathy. BONES: No acute finding. HARDWARE: None in the chest. OTHER: No other significant findings. IMPRESSION: Slightly increased large right pleural effusion and lower lobe atelectasis -airspace dis ease. Similar patchy -ground-glass and nodular opacities in the right upper lobe. Despite the radio graphic appearance, the left pleural effusion has slightly diminished compared with the prior exam wi th minimal lateral segment left lower lobe subsegmental atelectasis. TECHNICAL DOCUMENTATION: JOB ID: [id number] Quality ID # [id number]: Final reports with documentation of one or more dose reduction techniques (e.g., Au tomated exposure control, adjustment of the mA and/or kV according to patient size, use of iterative reconstruction technique) 2010 [employer]- All Rights Reserved Reading location - IP/workstation name: [email or web address]
[2018-07-10] MEDS ORDERED: FUROSEMIDE INJ/PF 40 MG/4 ML SDV IV ONE (15:14)
[2018-07-10] MEDS ORDERED: LEVALBUTEROL HCL NEB 1.25 MG/3 ML AMPUL NEB PRN (17:32)
[2018-07-10] MEDS ORDERED: NITROGLYCERIN 0.4 MG/TAB 25 TAB/BOTTLE SL PRN (17:45)
[2018-07-10] MEDS ORDERED: CYCLOBENZAPRINE HCL 10 MG TABLET PO PRN (17:45)
[2018-07-10] MEDS: FUROSEMIDE INJ/PF 40 MG/4 ML SDV IV SCH (18:24)
[2018-07-10 19:37] LABS: APPEARANCE,URINE CLEAR; BILIRUBIN,URINE NEGATIVE (NEGATIVE); COLOR,URINE YELLOW; GLUCOSE, URINE NEGATIVE (NEGATIVE); KETONES,URINE NEGATIVE (NEGATIVE); LEUKOCYTE ESTERASE,URINE NEGATIVE (NEGATIVE); NITRITE,URINE NEGATIVE (NEGATIVE); PROTEIN,URINE NEGATIVE (NEGATIVE); URINE SPECIFIC GRAVITY 1.008; UROBILINOGEN,URINE NEGATIVE mg/dL (<2.0)
[2018-07-10] MEDS: CARVEDILOL 12.5 MG TABLET PO SCH (21:16)
[2018-07-10] MEDS: LOSARTAN POTASSIUM 25 MG TABLET PO SCH (21:16)
[2018-07-10] MEDS: DILTIAZEM HCL 60 MG TABLET PO SCH (21:16)
[2018-07-10] MEDS: GUAIFENESIN 600 MG TABLET.SA PO SCH (21:16)
[2018-07-10] MEDS: HYDRALAZINE HCL 25 MG TABLET PO SCH (21:16)
[2018-07-10] MEDS: HEPARIN SOD (PORCINE) 5,000 UNIT/ML 1 ML SYRINGE SUBCUT SCH (21:17)
[2018-07-10] MEDS: AMITRIPTYLINE HCL 25 MG TABLET PO SCH (21:17)
[2018-07-10] MEDS ORDERED: (PENDING PHARMACY ID) (Brinzolamide/Brimonidine Tart [Simbrinza 1%-0.2% Eye Drops] 1 DROP) OS SCH (22:00)
--- NOTE | 2018-07-10 22:58 | EKG REPORT ---
SEVERITY:- ABNORMAL ECG - SINUS RHYTHM FIRST DEGREE AV BLOCK ABNRM R PROG, CONSIDER ASMI OR LEAD PLACEMENT NONSPECIFIC T ABNORMALITIES, LATERAL LEADS : Confirmed by: Alexus Mclaughlin 10-Jul-2018 22:57:35
[2018-07-11] MEDS: IPRATROPIUM/ALBUTEROL 0.5-2.5 MG/3 ML AMPUL NEB SCH ×3 (00:20→15:54)
[2018-07-11 04:59] LABS: ABSOLUTE LYMPHOCYTES (AUTO) 1.1 10^3/uL (0.5-4.7); ABSOLUTE MONOCYTES (AUTO) 0.1 10^3/uL (0.1-1.4); ABSOLUTE NEUT (AUTO) 3.4 10^3/uL (1.7-8.2); BASOPHILS % (AUTO) 0.1 % (0-2); HEMATOCRIT 28.8 % (37.9-51.0); HEMOGLOBIN 9.7 g/dL (13.5-17.0); LYMPHOCYTES % (AUTO) 23.6 % (13-45); MEAN CORPUSCULAR HGB CONC 33.7 g/dL (32.0-36.0); MEAN CORPUSCULAR VOLUME 89 fl (80-97); MONOCYTES % (AUTO) 1.1 % (3-13); PLATELET COUNT 189 10^3/uL (150-450); RED BLOOD COUNT 3.23 10^6/uL (4.35-5.55); RED CELL DISTRIBUTION WIDTH 15.1 % (11.5-14.0); SEGMENTED NEUTROPHILS % (AUTO) 75.2 % (42-78); TOTAL CELLS COUNTED % (AUTO) 100 %; WHITE BLOOD COUNT 4.5 10^3/uL (4.0-10.5)
[2018-07-11] MEDS: DILTIAZEM HCL 60 MG TABLET PO SCH ×2 (05:34→13:41)
[2018-07-11] MEDS: HEPARIN SOD (PORCINE) 5,000 UNIT/ML 1 ML SYRINGE SUBCUT SCH ×3 (05:34→21:45)
[2018-07-11 05:37] LABS: ANION GAP 7 (5-19); BLOOD UREA NITROGEN 23 mg/dL (7-20); CALCIUM 8.6 mg/dL (8.4-10.2); CARBON DIOXIDE 31 mmol/L (22-30); CHLORIDE 101 mmol/L (98-107); GLUCOSE 143 mg/dL (75-110); SODIUM 139.1 mmol/L (137-145)
--- NOTE | 2018-07-11 06:28 | PDOC H&P ---
History of Present Illness Admission Date/PCP: 07/10/18 15:37 RITCHIE HENLEY MD Patient complains of: Abrupt onset of global weakness with increasing shortness of breath and lower extremity edema. History of Present Illness: EYAL ELLER is a 77 year old male with a complex medical history. He was just discharged from this facility on June 17. He states that 3 to 4 days ago he began to notice increasing shortness of breath. He tried his nebulizer treatments but they were ineffective. He was coughing up white sputum. His reports that in addition to the patient experiencing fever and chills he feels cold all of the time. In addition he reports some discomfort on the right side of his back from the last thoracentesis. The patient was hypoxic on presentation to the emergency department. He required 3 L nasal cannula to achieve 90% or better oxygenation. He was slightly hypertensive. His white blood cell count was normal but due to the respiratory compromise and risk of infection the patient will be admitted by the hospitalist service. Past Medical History Cardiac Medical History: Reports: Coronary Artery Disease, Myocardial Infarction, Hyperlipidema, Hypertension Pulmonary Medical History: Reports: Chronic Obstructive Pulmonary Disease (COPD) Denies: Asthma, Bronchitis, Pneumonia Neurological Medical History: Denies: Seizures Endocrine Medical History: Reports: Hypothyroidism GI Medical History: Reports: Diverticulitis, Gastroesophageal Reflux Disease Musculoskeltal Medical History: Reports: Arthritis Hematology: Denies: Anemia Past Surgical History Past Surgical History: Reports: Appendectomy, Other - Back Surgery (Patient is unsure what type) also had a partial colectomy Denies: Pacemaker Social History Information Source: Patient Lives with: Spouse/Significant other Smoking Status: Former Smoker Frequency of Alcohol Use: None Hx Recreational Drug Use: No Drugs: None Hx Prescription Drug Abuse: No - Advance Directive Resuscitation Status: Full Code Surrogate healthcare decision maker:: The patient's is the designated decision maker. She is trying to encourage him to fill out a healthcare power of associate attorney. Please see advance care planning note. Family History Family History: CAD, COPD Parental Family History Reviewed: Yes Children Family History Reviewed: Yes Sibling(s) Family History Reviewed.: Yes Medication/Allergy Home Medications: Albuterol Sulfate [Proair HFA] 2 puff IH Q4HP PRN 07/12/16 Amitriptyline HCl [Elavil 25 mg Tablet] 25 mg PO QHS 07/12/16 Hydralazine HCl [Apresoline 25 mg Tablet] 25 mg PO QHS 07/12/16 Levothyroxine Sodium [Synthroid] 25 mcg PO QAM 07/12/16 Levothyroxine Sodium [Synthroid] 200 mcg PO QAM 07/12/16 Tamsulosin HCl [Flomax 0.4 mg Cap.sr] 0.4 mg PO DAILY 07/12/16 Aspirin [Ecotrin] 81 mg PO DAILY 06/13/18 Brinzolamide/Brimonidine Tart [Simbrinza 1%-0.2% Eye Drops] 1 drop OD DAILY 06/13/18 Brinzolamide/Brimonidine Tart [Simbrinza 1%-0.2% Eye Drops] 1 drop OS Q12 06/13/18 Carvedilol [Coreg 12.5 mg Tablet] 12.5 mg PO Q12 06/13/18 Cyanocobalamin (Vitamin B-12) [Vitamin B-12] 1,000 mcg PO DAILY 06/13/18 Cyclobenzaprine HCl [Flexeril 10 mg Tablet] 10 mg PO Q12HP PRN 06/13/18 Diltiazem HCl [Cardizem Cd 240 mg Capsule.cr] 240 mg PO Q12 06/13/18 Fluticasone Propionate [Flonase Nasal [place] 50 Mcg/[place] 16 gm] 2 spray NASL DAILY 06/13/18 Iron 65 65 mg PO DAILY 06/13/18 Losartan Potassium [Cozaar 25 mg Tablet] 25 mg PO Q12 06/13/18 Nitroglycerin [Nitrostat 0.4 mg (1/150 Gr) Tabs 25/Bottle] 1 tab PO DAILYP PRN 06/13/18 Pantoprazole Sodium [Protonix [address] Tablet] 20 mg PO QAM 06/13/18 Rosuvastatin Calcium 5 mg PO Q2D 06/13/18 Tramadol HCl [Ultram 50 mg Tablet] 50 mg PO TIDP PRN 06/13/18 Acetaminophen [Tylenol 325 mg Tablet] 650 mg PO Q4HP PRN tablet 06/17/18 Alprazolam [Xanax 0.5 mg Tablet] 0.5 mg PO Q8HP PRN #9 tab 06/17/18 Buspirone HCl [Buspar 5 mg Tablet] 1 tab PO ASDIR PRN #45 tab 06/17/18 Furosemide [Lasix 20 mg Tablet] 20 mg PO DAILY #30 tablet 06/17/18 Guaifenesin [Mucinex Sr 600 mg Tablet.sa] 600 mg PO Q12 #14 tablet.sa 06/17/18 Ipratropium/Albuterol Sulfate [Duoneb 3 ml Ampul] 3 ml NEB Q6HP PRN #120 vial.neb 06/17/18 Levofloxacin [Levaquin 750 mg Tablet] 750 mg PO DAILY #3 tablet 06/17/18 Nebulizer [Nebulizer Machine] 1 each ASDIR PRN #1 kit 06/17/18 Prednisone [Deltasone 20 mg Tablet] 60 mg PO DAILY #9 tablet 06/17/18 Allergies/Adverse Reactions: iodine [Iodine] Allergy (Mild, Verified 08/13/16 07:59) itching, burning Penicillins Allergy (Mild, Verified 08/13/16 07:59) welts, nausea, nomiting Review of Systems Constitutional: PRESENT: chills, fatigue, weakness. ABSENT: night sweats Eyes: ABSENT: visual disturbances Ears: ABSENT: hearing changes Nose, Mouth, and Throat: ABSENT: mouth pain, sore throat Cardiovascular: PRESENT: dyspnea on exertion, edema. ABSENT: chest pain Respiratory: PRESENT: cough, dyspnea, sputum - White. ABSENT: hemoptysis Gastrointestinal: PRESENT: abdominal pain, diarrhea, other - Distention Genitourinary: ABSENT: difficulty urinating, dysuria, hematuria Musculoskeletal: PRESENT: back pain. ABSENT: joint swelling Integumentary: ABSENT: diaphoresis, rash Neurological: ABSENT: abnormal speech, dizziness, memory loss, syncope, tremor(s), vertigo Psychiatric: ABSENT: anxiety, depression, hallucinations Endocrine: PRESENT: cold intolerance. ABSENT: heat intolerance, polydipsia, polyphagia, polyuria Hematologic/Lymphatic: ABSENT: easy bleeding, lymphadenopathy Allergic/Immunologic: ABSENT: seasonal rhinorrhea Physical Exam Vital Signs: Temp Pulse Resp BP Pulse Ox 97.8 F 22 H 114/64 97 07/10/18 12:46 07/10/18 12:38 07/10/18 12:38 07/10/18 12:38 Intake & Output 07/09/18 07/10/18 07/11/18 06:59 06:59 06:59 Weight 72.575 kg General appearance: PRESENT: cooperative, mild distress - Mild to moderate distress, well-developed Head exam: PRESENT: atraumatic, normocephalic Eye exam: PRESENT: conjunctiva pink, EOMI. ABSENT: scleral icterus Ear exam: PRESENT: normal external ear exam Mouth exam: PRESENT: dry mucosa, tongue midline Teeth exam: PRESENT: edentulous - Upper and lower dentures Neck exam: ABSENT: carotid bruit, lymphadenopathy, tenderness Respiratory exam: PRESENT: decreased breath sounds - Right base, rales - Bilaterally, symmetrical, wheezes. ABSENT: rhonchi, tachypnea Cardiovascular exam: PRESENT: RRR, +S1, +S2, systolic murmur GI/Abdominal exam: PRESENT: distended - Patient reports abdomen is distended versus his baseline., normal bowel sounds, soft. ABSENT: guarding, tenderness Rectal exam: PRESENT: deferred Gentrourinary exam: ABSENT: indwelling catheter Extremities exam: PRESENT: other - 3+ edema to his knees. ABSENT: calf tenderness Musculoskeletal exam: PRESENT: full ROM Neurological exam: PRESENT: alert, awake, oriented to person, oriented to place, oriented to time, oriented to situation, CN II-XII grossly intact. ABSENT: motor sensory deficit Psychiatric exam: PRESENT: depressed, flat affect. ABSENT: agitated, anxious Focused psych exam: ABSENT: delusional, restlessness Results Laboratory Results: 07/10/18 12:00 07/10/18 12:00 07/10/18 07/10/18 07/10/18 12:00 12:00 12:45 WBC 5.8 RBC 3.46 L Hgb 10.3 L Hct 31.2 L MCV 90 MCH 29.8 MCHC 32.9 RDW 15.2 H Plt Count 186 Seg Neutrophils % 56.9 Lymphocytes % 26.7 Monocytes % 9.6 Eosinophils % 6.6 H Basophils % 0.2 Absolute Neutrophils 3.3 Absolute Lymphocytes 1.5 Absolute Monocytes 0.6 Absolute Eosinophils 0.4 Absolute Basophils 0.0 VBG pH VBG pCO2 VBG HCO3 VBG Base Excess Sodium 139.9 Potassium 3.7 Chloride 99 Carbon Dioxide 29 Anion Gap 12 BUN 20 Creatinine 1.94 H Est GFR ( Amer) 41 L Est GFR (Non-Af Amer) 34 L Glucose 103 Lactic Acid 1.2 Calcium 8.6 Total Bilirubin 0.4 AST 20 ALT 21 Alkaline Phosphatase 90 Total Protein 6.4 Albumin 3.2 L 07/10/18 12:45 WBC RBC Hgb Hct MCV MCH MCHC RDW Plt Count Seg Neutrophils % Lymphocytes % Monocytes % Eosinophils % Basophils % Absolute Neutrophils Absolute Lymphocytes Absolute Monocytes Absolute Eosinophils Absolute Basophils VBG pH 7.34 VBG pCO2 58.5 VBG HCO3 31.0 VBG Base Excess 3.4 Sodium Potassium Chloride Carbon Dioxide Anion Gap BUN Creatinine Est GFR ( Amer) Est GFR (Non-Af Amer) Glucose Lactic Acid Calcium Total Bilirubin AST ALT Alkaline Phosphatase Total Protein Albumin 07/10/18 07/10/18 12:00 12:00 Troponin I < 0.012 NT-Pro-B Natriuret Pep 4200 H Impressions: Chest X-Ray 07/10/18 12:30 IMPRESSION: Slightly increased right basilar consolidation - pleural effusion. New focal opacity along the lateral left hemidiaphragm, possible new effusion- airspace disease. Chest CT 07/10/18 13:17 IMPRESSION: Slightly increased large right pleural effusion and lower lobe atelectasis -airspace disease. Similar patchy -ground-glass and nodular opacities in the right upper lobe. Despite the radiographic appearance, the left pleural effusion has slightly diminished compared with the prior exam with minimal lateral segment left lower lobe subsegmental atelectasis. Assessment and Plan - Diagnosis (1) Acute respiratory failure with hypoxia Is this a current diagnosis for this admission?: Yes Plan: The patient left the hospital on June 17 he was off of oxygen. He was hypoxic on room air at the time of this admission and we will supplement his oxygen 90 to 94%. (2) Pleural effusion, right Is this a current diagnosis for this admission?: Yes Plan: His right pleural effusion has recurred. He is scheduled to see oncology. Initial aspiration was negative for malignancy but a rapid return of the fluid is disconcerting. We will be aggressive with diuretics but he may need recurrent thoracentesis. (3) Chronic kidney disease, stage 3 Is this a current diagnosis for this admission?: Yes Plan: The patient appears to be at his baseline. He is late stage III almost at stage IV. Continue to monitor. (4) Chronic diastolic heart failure Is this a current diagnosis for this admission?: Yes Plan: The patient had a recent echocardiogram. It showed moderate to severe mitral regurgitation with pulmonary hypertension. We will continue his medications and increased diuresis as noted above. (5) Cor pulmonale Is this a current diagnosis for this admission?: Yes Plan: This would certainly account for the leg edema. The severe mitral regurgitation could also be contributing to the effusion although as noted above underlying malignancy is still a concern. Continue current medications. (6) Hypertension Qualifiers: Hypertension type: essential hypertension Qualified Code(s): I10 - Essential (primary) hypertension Is this a current diagnosis for this admission?: Yes Plan: His blood pressure is slightly elevated. It should respond to the increased diuresis. Because he is borderline bradycardic I have broken his diltiazem out to 60 mg every 8 hours as opposed to the single 240 mg dose daily. This is in the event that we need to hold medication for bradycardia. Continue to monitor blood pressure and adjust medications accordingly. (7) Hypothyroidism Qualifiers: Hypothyroidism type: unspecified Qualified Code(s): E03.9 - Hypothyroidism, unspecified Is this a current diagnosis for this admission?: Yes Plan: During his June admission his TSH was found to be quite high at 34. He is down to a TSH of 10. I am going to add a small dose of liothyronine as his T3 is still low despite 225 mcg of levothyroxine. (8) First degree heart block Is this a current diagnosis for this admission?: Yes Plan: Continue to monitor on telemetry. Will adjust medications if clinically required. - Time Time Spent with patient: 70 minutes Time Spent with patient: 35 or more minutes Medications reviewed and adjusted accordingly: Yes Anticipated discharge: Home
[2018-07-11] MEDS: LIOTHYRONINE SODIUM 25 MCG TABLET PO SCH ×2 (08:38→11:15)
[2018-07-11] MEDS: LEVOTHYROXINE SODIUM 0.1 MG TABLET PO SCH (08:42)
[2018-07-11] MEDS: PANTOPRAZOLE SODIUM 20 MG TABLET.DR PO SCH (08:42)
[2018-07-11] MEDS ORDERED: (PENDING PHARMACY ID) (Brinzolamide/Brimonidine Tart [Simbrinza 1%-0.2% Eye Drops] 1 DROP) OD SCH (10:00)
[2018-07-11] MEDS: FUROSEMIDE INJ/PF 40 MG/4 ML SDV IV SCH ×2 (11:14→17:58)
[2018-07-11] MEDS: GUAIFENESIN 600 MG TABLET.SA PO SCH ×2 (11:14→21:41)
[2018-07-11] MEDS: ASPIRIN 81 MG TABLET, ENT COATED PO SCH (11:14)
[2018-07-11] MEDS: FLUTICASONE NASAL SPRAY 50 MCG/SPRY 120 SPRAY/16 GM NASL SCH (11:15)
[2018-07-11] MEDS: FERROUS SULFATE 325 MG TABLET PO SCH (11:15)
[2018-07-11] MEDS: CARVEDILOL 12.5 MG TABLET PO SCH ×2 (11:15→21:41)
[2018-07-11] MEDS: LOSARTAN POTASSIUM 25 MG TABLET PO SCH ×2 (11:15→21:41)
[2018-07-11] MEDS: TAMSULOSIN HCL 0.4 MG CAP.SR.24H PO SCH (11:15)
[2018-07-11] MEDS ORDERED: IPRATROPIUM/ALBUTEROL 0.5-2.5 MG/3 ML AMPUL NEB PRN (13:57)
[2018-07-11] MEDS ORDERED: POLYETHYLENE GLYCOL 3350 POWDER 17 GM/1 PACKET PO PRN (13:57)
--- NOTE | 2018-07-11 14:11 | PDOC PROGRESS REPORT ---
Subjective Progress Note for:: 07/11/18 Subjective:: 77 year old male with a complex medical history. He was just discharged from this facility on June 17. He states that 3 to 4 days ago he began to notice increasing shortness of breath. He tried his nebulizer treatments but they were ineffective. He was coughing up white sputum. His reports that in addition to the patient experiencing fever and chills he feels cold all of the time. In addition he reports some discomfort on the right side of his back from the last thoracentesis. The patient was hypoxic on presentation to the emergency department. He required 3 L nasal cannula to achieve 90% or better oxygenation. He was slightly hypertensive. His white blood cell count was normal but due to the respiratory compromise and risk of infection the patient will be admitted by the hospitalist service. 07/[id number]-ahmj-old male with history of congestive heart failure, bilateral pleural effusions recent history of thoracentesis came to the emergency room with hypoxia. He was placed on 3 L of oxygen and pulse ox more than 90%. In the ER hypertensive. He was started on Lasix. Reason For Visit: BILATERAL PLEURAL EFFUSIONS,LOWER EXTREMITY EDEMA Physical Exam Vital Signs: Temp Pulse Resp BP Pulse Ox 97.9 F 86 16 116/59 L 96 07/11/18 07:51 07/11/18 08:19 07/11/18 08:19 07/11/18 07:51 07/11/18 08:19 Intake & Output 07/10/18 07/11/18 07/12/18 06:59 06:59 06:59 Weight 68.4 kg General appearance: PRESENT: mild distress Head exam: PRESENT: atraumatic Eye exam: PRESENT: PERRLA Neck exam: PRESENT: JVD Respiratory exam: PRESENT: crackles, decreased breath sounds, rhonchi Cardiovascular exam: PRESENT: systolic murmur, tachycardia GI/Abdominal exam: PRESENT: normal bowel sounds, soft. ABSENT: distended, guarding, mass, organolmegaly, rebound, tenderness Rectal exam: PRESENT: deferred Neurological exam: PRESENT: alert, awake, oriented to person, oriented to place, oriented to time, oriented to situation, CN II-XII grossly intact. ABSENT: motor sensory deficit Results Laboratory Results: 07/11/18 04:16 07/11/18 04:16 0507/11/[id number] 07/11/18 16:43 04:16 04:16 WBC 4.5 RBC 3.23 L Hgb 9.7 L Hct 28.8 L MCV 89 MCH 30.0 MCHC 33.7 RDW 15.1 H Plt Count 189 Seg Neutrophils % 75.2 Lymphocytes % 23.6 Monocytes % 1.1 L Eosinophils % 0.0 Basophils % 0.1 Absolute Neutrophils 3.4 Absolute Lymphocytes 1.1 Absolute Monocytes 0.1 Absolute Eosinophils 0.0 Absolute Basophils 0.0 Sodium 139.1 Potassium 4.0 Chloride 101 Carbon Dioxide 31 H Anion Gap 7 BUN 23 H Creatinine 1.95 H Est GFR ( Amer) 41 L Est GFR (Non-Af Amer) 34 L Glucose 143 H Calcium 8.6 Magnesium 2.1 TSH Free T3 pg/mL Urine Color YELLOW Urine Appearance CLEAR Urine pH 7.0 Ur Specific Pinch 1.008 Urine Protein NEGATIVE Urine Glucose (UA) NEGATIVE Urine Ketones NEGATIVE Urine Blood NEGATIVE Urine Nitrite NEGATIVE Ur Leukocyte Esterase NEGATIVE Urine WBC (Auto) 0 Urine RBC (Auto) 1 07/11/18 07/11/18 04:16 04:16 WBC RBC Hgb Hct MCV MCH MCHC RDW Plt Count Seg Neutrophils % Lymphocytes % Monocytes % Eosinophils % Basophils % Absolute Neutrophils Absolute Lymphocytes Absolute Monocytes Absolute Eosinophils Absolute Basophils Sodium Potassium Chloride Carbon Dioxide Anion Gap BUN Creatinine Est GFR ( Amer) Est GFR (Non-Af Amer) Glucose Calcium Magnesium TSH 10.10 H Free T3 pg/mL 2.26 L Urine Color Urine Appearance Urine pH Ur Specific Pinch Urine Protein Urine Glucose (UA) Urine Ketones Urine Blood Urine Nitrite Ur Leukocyte Esterase Urine WBC (Auto) Urine RBC (Auto) 07/10/18 07/10/18 12:00 12:00 Troponin I < 0.012 NT-Pro-B Natriuret Pep 4200 H Impressions: Chest X-Ray 07/10/18 12:30 IMPRESSION: Slightly increased right basilar consolidation - pleural effusion. New focal opacity along the lateral left hemidiaphragm, possible new effusion- airspace disease. Chest CT 07/10/18 13:17 IMPRESSION: Slightly increased large right pleural effusion and lower lobe atelectasis -airspace disease. Similar patchy -ground-glass and nodular opacities in the right upper lobe. Despite the radiographic appearance, the left pleural effusion has slightly diminished compared with the prior exam with minimal lateral segment left lower lobe subsegmental atelectasis. Assessment and Plan - Diagnosis (1) Acute respiratory failure with hypoxia Is this a current diagnosis for this admission?: Yes Plan: The patient left the hospital on June 17 he was off of oxygen. He was hypoxic on room air at the time of this admission and we will supplement his oxygen 90 to 94%. 07/11/2018-pulse ox today is 95% on 2 L. Comfortably in the bed communicating well. Not in distress. Patient is receiving IV Lasix for bilateral pleural effusions. Acute respiratory failure with hypoxia most likely secondary to underlying CHF exacerbation. (2) Chronic diastolic heart failure Is this a current diagnosis for this admission?: Yes Plan: The patient had a recent echocardiogram. It showed moderate to severe mitral regurgitation with pulmonary hypertension. We will continue his medications and increased diuresis as noted above. 07/11/2018-patient has history of chronic diastolic heart failure. Echocardiogram shows severe mitral regurgitation with pulmonary hypertension. Is getting IV Lasix twice a day. Plan is to continue the present management. (3) Hypertension Qualifiers: Hypertension type: essential hypertension Qualified Code(s): I10 - Essential (primary) hypertension Is this a current diagnosis for this admission?: Yes Plan: His blood pressure is slightly elevated. It should respond to the increased diuresis. Because he is borderline bradycardic I have broken his diltiazem out to 60 mg every 8 hours as opposed to the single 240 mg dose daily. This is in the event that we need to hold medication for bradycardia. Continue to monitor blood pressure and adjust medications accordingly. 07/11/2018-patient came in with elevated blood pressure. This morning blood pressure is 151/60. Patient is getting IV Lasix 40 mg twice a day. Also receiving Cardizem 60 mg p.o. every 8 hours. Plan is to continue the present management. (4) Chronic kidney disease, stage 3 Is this a current diagnosis for this admission?: Yes Plan: The patient appears to be at his baseline. He is late stage III almost at stage IV. Continue to monitor. 07/11/2018-patient creatinine 1.95. Stable. Patient has stage III kidney disease. - Time Time Spent with patient: 25-34 minutes Medications reviewed and adjusted accordingly: Yes Anticipated discharge: Home
[2018-07-11] MEDS: BUSPIRONE HCL 10 MG TABLET PO SCH (15:17)
[2018-07-11] MEDS: SERTRALINE HCL 50 MG TABLET PO SCH (15:18)
--- NOTE | 2018-07-11 15:39 | RADIOLOGY REPORT (SQ) ---
EXAM DESCRIPTION: CHEST SINGLE VIEW COMPLETED DATE/TIME: 07/11/2018 3:17 pm REASON FOR STUDY: brenda pleural effusion COMPARISON: 07/10/2018 EXAM PARAMETERS: NUMBER OF VIEWS: One view. TECHNIQUE: Single frontal radiographic view of the chest acquired. RADIATION DOSE: NA LIMITATIONS: None. FINDINGS: LUNGS AND PLEURA: Extensive right pleural effusion. Smaller left pleural effusion. Sligh tly decreased on the right. . Compressive atelectasis at the right base. MEDIASTINUM AND HILAR STRUCTURES: No masses. Contour normal. HEART AND VASCULAR STRUCTURES: Heart normal in size. Normal vasculature. BONES: No acute findings. HARDWARE: None in the chest. OTHER: No other significant finding. IMPRESSION: Bilateral pleural effusions right greater than left. Slight decrease in the right effus ion. TECHNICAL DOCUMENTATION: JOB ID: [id number] [employer]- All Rights Reserved Reading location - IP/workstation name: [email or web address]
[2018-07-11] MEDS: DILTIAZEM HCL 240 MG CAPSULE.CR PO SCH (21:41)
[2018-07-11] MEDS: HYDRALAZINE HCL 25 MG TABLET PO SCH (21:41)
[2018-07-11] MEDS: AMITRIPTYLINE HCL 25 MG TABLET PO SCH (21:44)
[2018-07-12] MEDS: IPRATROPIUM/ALBUTEROL 0.5-2.5 MG/3 ML AMPUL NEB SCH ×3 (00:18→15:39)
[2018-07-12] MEDS: HEPARIN SOD (PORCINE) 5,000 UNIT/ML 1 ML SYRINGE SUBCUT SCH ×3 (06:05→22:29)
[2018-07-12] MEDS: LEVOTHYROXINE SODIUM 0.025 MG TABLET PO SCH (06:05)
[2018-07-12 06:36] LABS: ABSOLUTE LYMPHOCYTES (AUTO) 1.7 10^3/uL (0.5-4.7); ABSOLUTE MONOCYTES (AUTO) 0.4 10^3/uL (0.1-1.4); ABSOLUTE NEUT (AUTO) 5.4 10^3/uL (1.7-8.2); BASOPHILS % (AUTO) 0.1 % (0-2); EOSINOPHILS % (AUTO) 0.1 % (0-6); HEMOGLOBIN 9.8 g/dL (13.5-17.0); LYMPHOCYTES % (AUTO) 22.1 % (13-45); MEAN CORPUSCULAR HEMOGLOBIN 29.7 pg (27.0-33.4); MEAN CORPUSCULAR HGB CONC 33.7 g/dL (32.0-36.0); MEAN CORPUSCULAR VOLUME 88 fl (80-97); MONOCYTES % (AUTO) 5.5 % (3-13); PLATELET COUNT 200 10^3/uL (150-450); RED BLOOD COUNT 3.29 10^6/uL (4.35-5.55); RED CELL DISTRIBUTION WIDTH 15.5 % (11.5-14.0); SEGMENTED NEUTROPHILS % (AUTO) 72.2 % (42-78); TOTAL CELLS COUNTED % (AUTO) 100 %; WHITE BLOOD COUNT 7.5 10^3/uL (4.0-10.5)
[2018-07-12 06:55] LABS: ANION GAP 12 (5-19); BLOOD UREA NITROGEN 29 mg/dL (7-20); CALCIUM 8.7 mg/dL (8.4-10.2); CARBON DIOXIDE 29 mmol/L (22-30); CHLORIDE 100 mmol/L (98-107); GLUCOSE 97 mg/dL (75-110); POTASSIUM 3.1 mmol/L (3.6-5.0); SODIUM 140.6 mmol/L (137-145)
[2018-07-12] MEDS: SERTRALINE HCL 50 MG TABLET PO SCH (09:45)
[2018-07-12] MEDS: FLUTICASONE NASAL SPRAY 50 MCG/SPRY 120 SPRAY/16 GM NASL SCH (09:45)
[2018-07-12] MEDS: LEVOTHYROXINE SODIUM 0.1 MG TABLET PO SCH (09:45)
[2018-07-12] MEDS: BUSPIRONE HCL 10 MG TABLET PO SCH (09:46)
[2018-07-12] MEDS: TAMSULOSIN HCL 0.4 MG CAP.SR.24H PO SCH (09:46)
[2018-07-12] MEDS: FERROUS SULFATE 325 MG TABLET PO SCH (09:46)
[2018-07-12] MEDS: PANTOPRAZOLE SODIUM 20 MG TABLET.DR PO SCH (09:46)
[2018-07-12] MEDS: LOSARTAN POTASSIUM 25 MG TABLET PO SCH ×2 (09:46→22:26)
[2018-07-12] MEDS: ASPIRIN 81 MG TABLET, ENT COATED PO SCH (09:46)
[2018-07-12] MEDS: CARVEDILOL 12.5 MG TABLET PO SCH ×2 (09:46→22:26)
[2018-07-12] MEDS: DILTIAZEM HCL 240 MG CAPSULE.CR PO SCH ×2 (09:46→22:28)
[2018-07-12] MEDS: LIOTHYRONINE SODIUM 25 MCG TABLET PO SCH (09:47)
[2018-07-12] MEDS: FUROSEMIDE INJ/PF 40 MG/4 ML SDV IV SCH ×2 (09:47→17:44)
[2018-07-12] MEDS: GUAIFENESIN 600 MG TABLET.SA PO SCH ×2 (09:47→22:26)
[2018-07-12] MEDS ORDERED: POTASSIUM CHLORIDE 10 MEQ CAPSULE.ER PO ONE ×2 (13:00→16:00)
--- NOTE | 2018-07-12 15:45 | PDOC PROGRESS REPORT ---
Subjective Progress Note for:: 07/12/18 Subjective:: 77 year old male with a complex medical history. He was just discharged from this facility on June 17. He states that 3 to 4 days ago he began to notice increasing shortness of breath. He tried his nebulizer treatments but they were ineffective. He was coughing up white sputum. His reports that in addition to the patient experiencing fever and chills he feels cold all of the time. In addition he reports some discomfort on the right side of his back from the last thoracentesis. The patient was hypoxic on presentation to the emergency department. He required 3 L nasal cannula to achieve 90% or better oxygenation. He was slightly hypertensive. His white blood cell count was normal but due to the respiratory compromise and risk of infection the patient will be admitted by the hospitalist service. 07/11/[id number]-mbih-old male with history of congestive heart failure, bilateral pleural effusions recent history of thoracentesis came to the emergency room with hypoxia. He was placed on 3 L of oxygen and pulse ox more than 90%. In the ER hypertensive. He was started on Lasix. 07/12/2018-patient is comfortable in the bed communicating well. Not in distress. Pulse ox is 95% on 2 L. Reason For Visit: BILATERAL PLEURAL EFFUSIONS,LOWER EXTREMITY EDEMA Physical Exam Vital Signs: Temp Pulse Resp BP Pulse Ox 98.2 F 76 14 137/69 H 95 07/12/18 07:34 07/12/18 14:00 07/12/18 07:42 07/12/18 07:34 07/12/18 07:42 Intake & Output 07/11/18 07/12/18 07/13/18 06:59 06:59 06:59 Intake Total 1018 Output Total 1700 Balance -682 Weight 68.4 kg 65.5 kg General appearance: PRESENT: no acute distress, thin Head exam: PRESENT: atraumatic Eye exam: PRESENT: PERRLA Neck exam: ABSENT: carotid bruit, JVD, lymphadenopathy, thyromegaly Respiratory exam: PRESENT: crackles, decreased breath sounds Cardiovascular exam: PRESENT: systolic murmur, tachycardia GI/Abdominal exam: PRESENT: normal bowel sounds, soft. ABSENT: distended, guarding, mass, organolmegaly, rebound, tenderness Rectal exam: PRESENT: deferred Extremities exam: PRESENT: full ROM. ABSENT: calf tenderness, clubbing, pedal edema Neurological exam: PRESENT: alert, awake, oriented to person, oriented to place, oriented to time, oriented to situation, CN II-XII grossly intact. ABSENT: motor sensory deficit Psychiatric exam: PRESENT: appropriate affect, normal mood. ABSENT: homicidal ideation, suicidal ideation Results Laboratory Results: 07/12/18 06:05 07/12/18 06:05 07/12/18 07/12/18 06:05 06:05 WBC 7.5 RBC 3.29 L Hgb 9.8 L Hct 29.0 L MCV 88 MCH 29.7 MCHC 33.7 RDW 15.5 H Plt Count 200 Seg Neutrophils % 72.2 Lymphocytes % 22.1 Monocytes % 5.5 Eosinophils % 0.1 Basophils % 0.1 Absolute Neutrophils 5.4 Absolute Lymphocytes 1.7 Absolute Monocytes 0.4 Absolute Eosinophils 0.0 Absolute Basophils 0.0 Sodium 140.6 Potassium 3.1 L Chloride 100 Carbon Dioxide 29 Anion Gap 12 BUN 29 H Creatinine 1.68 H Est GFR ( Amer) 48 L Est GFR (Non-Af Amer) 40 L Glucose 97 Calcium 8.7 Magnesium 2.0 07/10/18 16:43 Clean Catch Midstream Urine Culture - Final NO GROWTH 2 DAYS 07/10/18 07/10/18 12:00 12:00 Troponin I < 0.012 NT-Pro-B Natriuret Pep 4200 H Impressions: Chest CT 07/10/18 13:17 IMPRESSION: Slightly increased large right pleural effusion and lower lobe atelectasis -airspace disease. Similar patchy -ground-glass and nodular opacities in the right upper lobe. Despite the radiographic appearance, the left pleural effusion has slightly diminished compared with the prior exam with minimal lateral segment left lower lobe subsegmental atelectasis. Chest X-Ray 07/11/18 00:00 IMPRESSION: Bilateral pleural effusions right greater than left. Slight decrease in the right effusion. Assessment and Plan - Diagnosis (1) Acute respiratory failure with hypoxia Is this a current diagnosis for this admission?: Yes Plan: The patient left the hospital on June 17 he was off of oxygen. He was hypoxic on room air at the time of this admission and we will supplement his oxygen 90 to 94%. 07/11/2018-pulse ox today is 95% on 2 L. Comfortably in the bed communicating well. Not in distress. Patient is receiving IV Lasix for bilateral pleural effusions. Acute respiratory failure with hypoxia most likely secondary to underlying CHF exacerbation. 07/12/2018-pulse ox is 95% on 2 L. Comfortably in the bed eating his lunch. Communicating well. Chest bilateral toes decreased few crackles and crepitations at the bases. Follow-up chest x-ray shows large right pleural effusion and left pleural effusion. Order was placed for thoracentesis for tomorrow. (2) Chronic diastolic heart failure Is this a current diagnosis for this admission?: Yes Plan: The patient had a recent echocardiogram. It showed moderate to severe mitral regurgitation with pulmonary hypertension. We will continue his medications and increased diuresis as noted above. 07/11/2018-patient has history of chronic diastolic heart failure. Echocardiogram shows severe mitral regurgitation with pulmonary hypertension. Is getting IV Lasix twice a day. Plan is to continue the present management. 07/12/2018-recent echocardiogram shows severe mitral regurgitation with pulmonary hypertension. Patient's is receiving IV Lasix 40 mg twice a day. Plan is to arrange for thoracentesis tomorrow. Patient has history of chronic diastolic heart failure. (3) Hypertension Qualifiers: Hypertension type: essential hypertension Qualified Code(s): I10 - Essential (primary) hypertension Is this a current diagnosis for this admission?: Yes Plan: His blood pressure is slightly elevated. It should respond to the increased diuresis. Because he is borderline bradycardic I have broken his diltiazem out to 60 mg every 8 hours as opposed to the single 240 mg dose daily. This is in the event that we need to hold medication for bradycardia. Continue to monitor blood pressure and adjust medications accordingly. 07/11/2018-patient came in with elevated blood pressure. This morning blood pressure is 151/60. Patient is getting IV Lasix 40 mg twice a day. Also receiving Cardizem 60 mg p.o. every 8 hours. Plan is to continue the present management. 07/12/2018-patient has history of hypertension which was chronic essential hypertension. Blood pressure today is 137/64 stable. Plan is to continue the present management. (4) Chronic kidney disease, stage 3 Is this a current diagnosis for this admission?: Yes Plan: The patient appears to be at his baseline. He is late stage III almost at stage IV. Continue to monitor. 07/11/2018-patient creatinine 1.95. Stable. Patient has stage III kidney disease. 07/12/2018-patient serum creatinine today is 1.68. Improved. Patient has stage III kidney disease. - Time Time Spent with patient: 25-34 minutes Medications reviewed and adjusted accordingly: Yes Anticipated discharge: Home
[2018-07-12] MEDS: HYDRALAZINE HCL 25 MG TABLET PO SCH (22:27)
[2018-07-12] MEDS: AMITRIPTYLINE HCL 25 MG TABLET PO SCH (22:28)
[2018-07-13] MEDS: IPRATROPIUM/ALBUTEROL 0.5-2.5 MG/3 ML AMPUL NEB SCH ×4 (00:09→23:54)
[2018-07-13] MEDS: HEPARIN SOD (PORCINE) 5,000 UNIT/ML 1 ML SYRINGE SUBCUT SCH ×3 (05:50→22:03)
[2018-07-13] MEDS: LEVOTHYROXINE SODIUM 0.025 MG TABLET PO SCH (05:53)
[2018-07-13 06:56] LABS: INTERNATIONAL RATION (INR) 0.98; PROTHROMBIN TIME 13.4 SEC (11.4-15.4)
[2018-07-13 06:57] LABS: ABSOLUTE EOSINOPHILS # (AUTO) 0.2 10^3/uL (0.0-0.6); ABSOLUTE MONOCYTES (AUTO) 0.5 10^3/uL (0.1-1.4); ABSOLUTE NEUT (AUTO) 4.3 10^3/uL (1.7-8.2); BASOPHILS % (AUTO) 0.2 % (0-2); EOSINOPHILS % (AUTO) 2.7 % (0-6); HEMOGLOBIN 10.1 g/dL (13.5-17.0); LYMPHOCYTES % (AUTO) 28.4 % (13-45); MEAN CORPUSCULAR HEMOGLOBIN 29.8 pg (27.0-33.4); MEAN CORPUSCULAR HGB CONC 33.7 g/dL (32.0-36.0); MEAN CORPUSCULAR VOLUME 89 fl (80-97); MONOCYTES % (AUTO) 7.5 % (3-13); PLATELET COUNT 192 10^3/uL (150-450); RED BLOOD COUNT 3.39 10^6/uL (4.35-5.55); RED CELL DISTRIBUTION WIDTH 15.3 % (11.5-14.0); SEGMENTED NEUTROPHILS % (AUTO) 61.2 % (42-78); TOTAL CELLS COUNTED % (AUTO) 100 %
[2018-07-13 07:26] LABS: ANION GAP 9 (5-19); BLOOD UREA NITROGEN 29 mg/dL (7-20); CALCIUM 8.7 mg/dL (8.4-10.2); CARBON DIOXIDE 31 mmol/L (22-30); CHLORIDE 100 mmol/L (98-107); GLUCOSE 85 mg/dL (75-110); POTASSIUM 3.4 mmol/L (3.6-5.0); SODIUM 140.2 mmol/L (137-145)
[2018-07-13] MEDS: ASPIRIN 81 MG TABLET, ENT COATED PO SCH (09:24)
[2018-07-13] MEDS: BUSPIRONE HCL 10 MG TABLET PO SCH (10:08)
[2018-07-13] MEDS: FERROUS SULFATE 325 MG TABLET PO SCH (10:08)
[2018-07-13] MEDS: LOSARTAN POTASSIUM 25 MG TABLET PO SCH ×2 (10:08→22:02)
[2018-07-13] MEDS: LEVOTHYROXINE SODIUM 0.1 MG TABLET PO SCH (10:08)
[2018-07-13] MEDS: CARVEDILOL 12.5 MG TABLET PO SCH ×2 (10:08→22:02)
[2018-07-13] MEDS: GUAIFENESIN 600 MG TABLET.SA PO SCH ×2 (10:08→22:02)
[2018-07-13] MEDS: TAMSULOSIN HCL 0.4 MG CAP.SR.24H PO SCH (10:08)
[2018-07-13] MEDS: FUROSEMIDE INJ/PF 40 MG/4 ML SDV IV SCH ×2 (10:08→18:06)
[2018-07-13] MEDS: DILTIAZEM HCL 240 MG CAPSULE.CR PO SCH ×2 (10:08→22:01)
[2018-07-13] MEDS: PANTOPRAZOLE SODIUM 20 MG TABLET.DR PO SCH (10:13)
[2018-07-13] MEDS: SERTRALINE HCL 50 MG TABLET PO SCH (10:13)
[2018-07-13] MEDS: LIOTHYRONINE SODIUM 25 MCG TABLET PO SCH (10:13)
[2018-07-13] MEDS: FLUTICASONE NASAL SPRAY 50 MCG/SPRY 120 SPRAY/16 GM NASL SCH (10:13)
--- NOTE | 2018-07-13 11:19 | PDOC PROGRESS REPORT ---
Subjective Progress Note for:: 07/13/18 Subjective:: 77 year old male with a complex medical history. He was just discharged from this facility on June 17. He states that 3 to 4 days ago he began to notice increasing shortness of breath. He tried his nebulizer treatments but they were ineffective. He was coughing up white sputum. His reports that in addition to the patient experiencing fever and chills he feels cold all of the time. In addition he reports some discomfort on the right side of his back from the last thoracentesis. The patient was hypoxic on presentation to the emergency department. He required 3 L nasal cannula to achieve 90% or better oxygenation. He was slightly hypertensive. His white blood cell count was normal but due to the respiratory compromise and risk of infection the patient will be admitted by the hospitalist service. 07/11/[id number]-kqcx-old male with history of congestive heart failure, bilateral pleural effusions recent history of thoracentesis came to the emergency room with hypoxia. He was placed on 3 L of oxygen and pulse ox more than 90%. In the ER hypertensive. He was started on Lasix. 07/12/2018-patient is comfortable in the bed communicating well. Not in distress. Pulse ox is 95% on 2 L. 07/13/2018-patient is comfortably in the bed communicating well. Patient is going to have a big towel drainage tube placement for the pleural effusion. Patient is aware of the procedure. He does not have any concerns. No acute events in the last 24 hours. Patient is afebrile. Reason For Visit: BILATERAL PLEURAL EFFUSIONS,LOWER EXTREMITY EDEMA Physical Exam Vital Signs: Temp Pulse Resp BP Pulse Ox 98.8 F 78 16 153/77 H 93 07/12/18 20:51 07/13/18 07:34 07/13/18 07:34 07/12/18 20:51 07/13/18 07:34 Intake & Output 07/12/18 07/13/18 07/14/18 06:59 06:59 06:59 Intake Total 1018 921 Output Total 4311 2770 Balance -682 -3863 Weight 65.5 kg General appearance: PRESENT: thin Head exam: PRESENT: atraumatic Eye exam: PRESENT: PERRLA Mouth exam: PRESENT: moist, tongue midline Neck exam: ABSENT: carotid bruit, JVD, lymphadenopathy, thyromegaly Respiratory exam: PRESENT: crackles, decreased breath sounds, rhonchi Cardiovascular exam: PRESENT: tachycardia GI/Abdominal exam: PRESENT: normal bowel sounds, soft. ABSENT: distended, guarding, mass, organolmegaly, rebound, tenderness Rectal exam: PRESENT: deferred Extremities exam: PRESENT: full ROM. ABSENT: calf tenderness, clubbing, pedal edema Neurological exam: PRESENT: alert, awake, oriented to person, oriented to place, oriented to time, oriented to situation, CN II-XII grossly intact. ABSENT: motor sensory deficit Psychiatric exam: PRESENT: appropriate affect, normal mood. ABSENT: homicidal ideation, suicidal ideation Results Laboratory Results: 07/13/18 05:25 07/13/18 05:25 07/13/18 07/13/18 05:25 05:25 WBC 7.0 RBC 3.39 L Hgb 10.1 L Hct 30.0 L MCV 89 MCH 29.8 MCHC 33.7 RDW 15.3 H Plt Count 192 Seg Neutrophils % 61.2 Lymphocytes % 28.4 Monocytes % 7.5 Eosinophils % 2.7 Basophils % 0.2 Absolute Neutrophils 4.3 Absolute Lymphocytes 2.0 Absolute Monocytes 0.5 Absolute Eosinophils 0.2 Absolute Basophils 0.0 Sodium 140.2 Potassium 3.4 L Chloride 100 Carbon Dioxide 31 H Anion Gap 9 BUN 29 H Creatinine 1.82 H Est GFR ( Amer) 44 L Est GFR (Non-Af Amer) 36 L Glucose 85 Calcium 8.7 Magnesium 2.0 07/10/18 16:43 Clean Catch Midstream Urine Culture - Final NO GROWTH 2 DAYS 07/10/18 07/10/18 12:00 12:00 Troponin I < 0.012 NT-Pro-B Natriuret Pep 4200 H Impressions: Chest CT 07/10/18 13:17 IMPRESSION: Slightly increased large right pleural effusion and lower lobe atelectasis -airspace disease. Similar patchy -ground-glass and nodular opacities in the right upper lobe. Despite the radiographic appearance, the left pleural effusion has slightly diminished compared with the prior exam with minimal lateral segment left lower lobe subsegmental atelectasis. Chest X-Ray 07/11/18 00:00 IMPRESSION: Bilateral pleural effusions right greater than left. Slight decrease in the right effusion. Assessment and Plan - Diagnosis (1) Acute respiratory failure with hypoxia Is this a current diagnosis for this admission?: Yes Plan: The patient left the hospital on June 17 he was off of oxygen. He was hypoxic on room air at the time of this admission and we will supplement his oxygen 90 to 94%. 07/11/2018-pulse ox today is 95% on 2 L. Comfortably in the bed communicating well. Not in distress. Patient is receiving IV Lasix for bilateral pleural effusions. Acute respiratory failure with hypoxia most likely secondary to underlying CHF exacerbation. 07/12/2018-pulse ox is 95% on 2 L. Comfortably in the bed eating his lunch. Communicating well. Chest bilateral air entry is decreased ,few crackles and crepitations at the bases. Follow-up chest x-ray shows large right pleural effusion and left pleural effusion. Order was placed for thoracentesis for tomorrow. 07/13/2018-patient pulse ox today is 95% on 2 L. Comfortably in the bed communicating well. Patient has bilateral pleural effusions. Patient is going for pigtail catheter placement. Placement. biLateral pleural effusions most likely secondary to underlying CHF. (2) Chronic diastolic heart failure Is this a current diagnosis for this admission?: Yes Plan: The patient had a recent echocardiogram. It showed moderate to severe mitral regurgitation with pulmonary hypertension. We will continue his medications and increased diuresis as noted above. 07/11/2018-patient has history of chronic diastolic heart failure. Echocardiogram shows severe mitral regurgitation with pulmonary hypertension. Is getting IV Lasix twice a day. Plan is to continue the present management. 07/12/2018-recent echocardiogram shows severe mitral regurgitation with pulmonary hypertension. Patient's is receiving IV Lasix 40 mg twice a day. Plan is to arrange for thoracentesis tomorrow. Patient has history of chronic diastolic heart failure. 07/13/2018-patient has a chronic diastolic heart failure. As of bilateral pleural effusions. He is on IV Lasix 40 mg twice a day and is going for pigtail catheter placement. (3) Hypertension Qualifiers: Hypertension type: essential hypertension Qualified Code(s): I10 - Essent ial (primary) hypertension Is this a current diagnosis for this admission?: Yes Plan: His blood pressure is slightly elevated. It should respond to the increased diuresis. Because he is borderline bradycardic I have broken his diltiazem out to 60 mg every 8 hours as opposed to the single 240 mg dose daily. This is in the event that we need to hold medication for bradycardia. Continue to monitor blood pressure and adjust medications accordingly. 07/11/2018-patient came in with elevated blood pressure. This morning blood pressure is 151/60. Patient is getting IV Lasix 40 mg twice a day. Also receiving Cardizem 60 mg p.o. every 8 hours. Plan is to continue the present management. 07/12/2018-patient has history of hypertension which was chronic essential hypertension. Blood pressure today is 137/64 stable. Plan is to continue the present management. 07/13/2018-patient has history of essential hypertension. Blood pressure today is 137/67 stable. Presently on Cardizem 60 mg p.o. every 8 hours and Lasix 40 mg IV twice a day. Plan is to continue the present management. (4) Chronic kidney disease, stage 3 Is this a current diagnosis for this admission?: Yes Plan: The patient appears to be at his baseline. He is late stage III almost at stage IV. Continue to monitor. 07/11/2018-patient creatinine 1.95. Stable. Patient has stage III kidney disease. 07/12/2018-patient serum creatinine today is 1.68. Improved. Patient has stage III kidney disease. 07/13/2018-patient serum creatinine is 1.82 today. On admission it is 1.95. has baseline creatinine is around 2.3. - Time Time Spent with patient: 25-34 minutes Medications reviewed and adjusted accordingly: Yes Anticipated discharge: Home
--- NOTE | 2018-07-13 12:00 | RADIOLOGY REPORT (SQ) ---
EXAM DESCRIPTION: U/S THORACENTESIS W/CHEST TUBE COMPLETED DATE/TIME: 07/13/2018 11:00 am REASON FOR STUDY: rt plural effusion COMPARISON: Chest films 07/11/2018 CT chest 07/10/2018 Prior thoracentesis 06/15/2018 FLUORO TIME: No fluoroscopy. 1 ultrasound image saved to PACS. TECHNIQUE: Image guided chest tube placement using sterile technique. LIMITATIONS: None FINDINGS: After written consent was obtained and explaining the risks and benefits of conscious arnie tion , the patient was placed upright on the ultrasound gurney. A time out was then called for site verification. An entry site was then marked using ultrasound guidance. The posterior right wall was t hen prepped and draped in a sterile fashion. The site was then anesthetized using 6 ml of 1% lidocai ne solution. An 11 blade scalpel was used to make a small skin incision. A safety centesis needle/C T was advanced into the right posterior pleural space with prompt return of clear yellow fluid. The s tylet was removed, and .038 guidewire was passed through the [id number]-V-[id number] catheter. An 8 [place] lo cking pigtail was placed over the guidewire into the posterior right pleural space. The catheter was then attached to the collection device. The entry site was covered with a sterile bandage. Right chest tube will be placed to 20 cm of water suction. Post procedure chest x-ray dictated separately demonstrated no pneumothorax. Pleural fluid Specimens were sent to cytology IMPRESSION: SUCCESSFUL PLACEMENT OF A RIGHT SIDED CHEST TUBE USING ULTRASOUND GUIDANCE. Pleural fluid specimen was sent to cytology. COMMENT: Patient medication list reviewed: Yes- Quality ID# [id number]:Eligible professional attests to do cumenting in the medical record they obtained, updated, or reviewed the patient's current medications . Quality ID 145: Final reports for procedures using fluoroscopy that document radiation exposure jamie candido, or exposure time and number of fluorographic images (if radiation exposure indices are not avail able) TECHNICAL DOCUMENTATION: JOB ID: [id number] [employer]- All Rights Reserved rev Reading location - IP/workstation name: [email or web address]
--- NOTE | 2018-07-13 13:50 | RADIOLOGY REPORT (SQ) ---
EXAM DESCRIPTION: CHEST SINGLE VIEW COMPLETED DATE/TIME: 07/13/2018 12:00 pm REASON FOR STUDY: S/P RT CHEST TUBE PLACEMENT COMPARISON: Chest films 06/17/2018, 07/10/2018, 07/11/2018 CT chest 07/10/2018, 06/16/2018 Prior right thoracentesis 06/15/2018 EXAM PARAMETERS: NUMBER OF VIEWS: One view. TECHNIQUE: Single frontal radiographic view of the chest acquired. RADIATION DOSE: NA LIMITATIONS: None. FINDINGS: LUNGS AND PLEURA: A right-sided pleural space pigtail catheter is present. No pneumothora x. Persistent moderate size right pleural effusion and basilar airspace disease. Left hemithorax unremarkable. MEDIASTINUM AND HILAR STRUCTURES: No masses. Contour normal. HEART AND VASCULAR STRUCTURES: Heart normal in size. Normal vasculature. BONES: No acute findings. HARDWARE: 8 Syriac pigtail catheter right posterior pleural space OTHER: No other significant finding. IMPRESSION: Immediate post right pigtail catheter placement in the right pleural space. No pneumoth orax. Persistent right pleural effusion. TECHNICAL DOCUMENTATION: JOB ID: [id number] [employer]- All Rights Reserved Reading location - IP/workstation name: [email or web address]
[2018-07-13] MEDS: ACETAMINOPHEN 325 MG TABLET PO PRN ×2 (14:25→22:16)
[2018-07-13] MEDS: TRAMADOL HCL 50 MG TABLET PO PRN ×2 (14:26→22:16)
--- NOTE | 2018-07-13 15:42 | RADIOLOGY REPORT (SQ) ---
EXAM DESCRIPTION: CHEST SINGLE VIEW COMPLETED DATE/TIME: 07/13/2018 2:41 pm REASON FOR STUDY: S/P RT CHEST TUBE PLACEMENT- 2 HOUR FILM COMPARISON: 07/13/2018 EXAM PARAMETERS: NUMBER OF VIEWS: One view. TECHNIQUE: Single frontal radiographic view of the chest acquired. RADIATION DOSE: NA LIMITATIONS: None. FINDINGS: LUNGS AND PLEURA: As on the previous examination, small bore right chest tube. Persisten t decreasing right pleural effusion. Right lower lung airspace disease is again noted. Stable small left pleural effusion and left base atelectasis or infiltrate. No pneumothorax. MEDIASTINUM AND HILAR STRUCTURES: No masses. Contour normal. HEART AND VASCULAR STRUCTURES: Heart normal in size. Normal vasculature. BONES: No acute findings. HARDWARE: See above. OTHER: No other significant finding. IMPRESSION: 1. Persistent decreasing right pleural effusion since the previous examination performe d earlier on the same date, 07/13/2018. Right lung base airspace disease is again identified. 2. Small left pleural effusion and left base atelectasis/infiltrate. TECHNICAL DOCUMENTATION: JOB ID: [id number] [employer]- All Rights Reserved Reading location - IP/workstation name: [email or web address]
[2018-07-13] MEDS: HYDRALAZINE HCL 25 MG TABLET PO SCH (22:02)
[2018-07-13] MEDS: AMITRIPTYLINE HCL 25 MG TABLET PO SCH (22:02)
[2018-07-14 05:06] LABS: ABSOLUTE EOSINOPHILS # (AUTO) 0.3 10^3/uL (0.0-0.6); ABSOLUTE MONOCYTES (AUTO) 0.7 10^3/uL (0.1-1.4); ABSOLUTE NEUT (AUTO) 5.2 10^3/uL (1.7-8.2); BASOPHILS % (AUTO) 0.2 % (0-2); EOSINOPHILS % (AUTO) 3.1 % (0-6); HEMATOCRIT 32.2 % (37.9-51.0); HEMOGLOBIN 10.8 g/dL (13.5-17.0); LYMPHOCYTES % (AUTO) 24.7 % (13-45); MEAN CORPUSCULAR HEMOGLOBIN 30.1 pg (27.0-33.4); MEAN CORPUSCULAR HGB CONC 33.5 g/dL (32.0-36.0); MEAN CORPUSCULAR VOLUME 90 fl (80-97); MONOCYTES % (AUTO) 8.8 % (3-13); PLATELET COUNT 187 10^3/uL (150-450); RED BLOOD COUNT 3.59 10^6/uL (4.35-5.55); RED CELL DISTRIBUTION WIDTH 15.3 % (11.5-14.0); SEGMENTED NEUTROPHILS % (AUTO) 63.2 % (42-78); TOTAL CELLS COUNTED % (AUTO) 100 %; WHITE BLOOD COUNT 8.3 10^3/uL (4.0-10.5)
[2018-07-14] MEDS ORDERED: DIPHENHYDRAMINE HCL 25 MG CAPSULE PO ONE (05:30)
[2018-07-14] MEDS: LEVOTHYROXINE SODIUM 0.025 MG TABLET PO SCH (05:46)
[2018-07-14] MEDS: HEPARIN SOD (PORCINE) 5,000 UNIT/ML 1 ML SYRINGE SUBCUT SCH ×3 (05:46→22:36)
[2018-07-14 06:31] LABS: ALANINE AMINOTRANSFERASE 18 U/L (21-72); ALBUMIN 3.2 g/dL (3.5-5.0); ALKALINE PHOSPHATASE 81 U/L (38-126); ANION GAP 12 (5-19); ASPARTATE AMINO TRANSFERASE 16 U/L (17-59); BILIRUBIN,DIRECT 0.3 mg/dL (0.0-0.4); BILIRUBIN,TOTAL 0.4 mg/dL (0.2-1.3); BLOOD UREA NITROGEN 35 mg/dL (7-20); CALCIUM 8.6 mg/dL (8.4-10.2); CARBON DIOXIDE 30 mmol/L (22-30); CHLORIDE 98 mmol/L (98-107); GLUCOSE 100 mg/dL (75-110); POTASSIUM 3.6 mmol/L (3.6-5.0); SODIUM 139.5 mmol/L (137-145); TOTAL PROTEIN 6.1 g/dL (6.3-8.2)
[2018-07-14] MEDS: IPRATROPIUM/ALBUTEROL 0.5-2.5 MG/3 ML AMPUL NEB SCH ×3 (07:52→23:49)
[2018-07-14] MEDS: PANTOPRAZOLE SODIUM 20 MG TABLET.DR PO SCH (08:43)
[2018-07-14] MEDS: LEVOTHYROXINE SODIUM 0.1 MG TABLET PO SCH (08:43)
--- NOTE | 2018-07-14 09:08 | RADIOLOGY REPORT (SQ) ---
EXAM DESCRIPTION: CHEST SINGLE VIEW COMPLETED DATE/TIME: 07/14/2018 8:31 am REASON FOR STUDY: CHEST TUBE COMPARISON: 07/13/2018 EXAM PARAMETERS: NUMBER OF VIEWS: One view. TECHNIQUE: Single frontal radiographic view of the chest acquired. RADIATION DOSE: NA LIMITATIONS: None. FINDINGS: LUNGS AND PLEURA: Stable small bore right basilar chest tube. There is residual small brenda ateral pleural effusions, right greater than left. No appreciable pneumothorax. Stable bibasilar co nsolidation, likely atelectasis. Emphysematous change. MEDIASTINUM AND HILAR STRUCTURES: No masses. Contour normal. HEART AND VASCULAR STRUCTURES: Ectatic atherosclerotic aorta. Normal heart size. BONES: No acute findings. Osteopenia. HARDWARE: Small bore right basilar chest tube. OTHER: No other significant finding. IMPRESSION: Stable small bore right basilar chest tube. No pneumothorax. Stable small bilateral pleural effusions and bibasilar opacities, likely atelectasis. TECHNICAL DOCUMENTATION: JOB ID: [id number] [employer]- All Rights Reserved Reading location - IP/workstation name: [email or web address]
[2018-07-14] MEDS: FERROUS SULFATE 325 MG TABLET PO SCH (10:34)
[2018-07-14] MEDS: CARVEDILOL 12.5 MG TABLET PO SCH ×2 (10:34→22:35)
[2018-07-14] MEDS: TAMSULOSIN HCL 0.4 MG CAP.SR.24H PO SCH (10:34)
[2018-07-14] MEDS: LOSARTAN POTASSIUM 25 MG TABLET PO SCH (10:34)
[2018-07-14] MEDS: BUSPIRONE HCL 10 MG TABLET PO SCH (10:35)
[2018-07-14] MEDS: GUAIFENESIN 600 MG TABLET.SA PO SCH ×2 (10:35→22:35)
[2018-07-14] MEDS: LIOTHYRONINE SODIUM 25 MCG TABLET PO SCH (10:35)
[2018-07-14] MEDS: ASPIRIN 81 MG TABLET, ENT COATED PO SCH (10:35)
[2018-07-14] MEDS: SERTRALINE HCL 50 MG TABLET PO SCH (10:35)
[2018-07-14] MEDS: DILTIAZEM HCL 240 MG CAPSULE.CR PO SCH ×2 (10:35→22:35)
[2018-07-14] MEDS: FUROSEMIDE INJ/PF 40 MG/4 ML SDV IV SCH (10:36)
[2018-07-14] MEDS: FLUTICASONE NASAL SPRAY 50 MCG/SPRY 120 SPRAY/16 GM NASL SCH (10:36)
--- NOTE | 2018-07-14 14:23 | PDOC PROGRESS REPORT ---
Subjective Progress Note for:: 07/14/18 Subjective:: 77 year old male with a complex medical history. He was just discharged from this facility on June 17. He states that 3 to 4 days ago he began to notice increasing shortness of breath. He tried his nebulizer treatments but they were ineffective. He was coughing up white sputum. His reports that in addition to the patient experiencing fever and chills he feels cold all of the time. In addition he reports some discomfort on the right side of his back from the last thoracentesis. The patient was hypoxic on presentation to the emergency department. He required 3 L nasal cannula to achieve 90% or better oxygenation. He was slightly hypertensive. His white blood cell count was normal but due to the respiratory compromise and risk of infection the patient will be admitted by the hospitalist service. 07/14/2018. No acute events overnight. Patient denies any pain, chills, nausea, vomiting, diarrhea, constipation or any urinary symptoms. Reason For Visit: BILATERAL PLEURAL EFFUSIONS,LOWER EXTREMITY EDEMA Physical Exam Vital Signs: Temp Pulse Resp BP Pulse Ox 98.3 F 71 18 122/62 96 07/14/18 04:02 07/14/18 07:55 07/14/18 07:55 07/14/18 04:02 07/14/18 07:55 Intake & Output 07/13/18 07/14/18 07/15/18 06:59 06:59 06:59 Intake Total 921 960 Output Total 2550 400 390 Balance -1629 560 -390 Weight 61.2 kg General appearance: PRESENT: no acute distress, well-developed, well-nourished Eye exam: PRESENT: conjunctiva pink, EOMI, PERRLA. ABSENT: scleral icterus Neck exam: ABSENT: carotid bruit, JVD, lymphadenopathy, thyromegaly Respiratory exam: PRESENT: clear to auscultation brenda, other - Right-sided Pig-t ail chest tube in place.. ABSENT: rales, rhonchi, wheezes Pulses: PRESENT: normal dorsalis pedis pul GI/Abdominal exam: PRESENT: normal bowel sounds, soft. ABSENT: distended, guarding, mass, organolmegaly, rebound, tenderness Extremities exam: PRESENT: full ROM. ABSENT: calf tenderness, clubbing, pedal edema Neurological exam: PRESENT: alert, awake, oriented to person, oriented to place, oriented to time, oriented to situation, CN II-XII grossly intact. ABSENT: motor sensory deficit Results Laboratory Results: 07/14/18 04:39 07/14/18 04:39 07/14/18 07/14/18 04:39 04:39 WBC 8.3 RBC 3.59 L Hgb 10.8 L Hct 32.2 L MCV 90 MCH 30.1 MCHC 33.5 RDW 15.3 H Plt Count 187 Seg Neutrophils % 63.2 Lymphocytes % 24.7 Monocytes % 8.8 Eosinophils % 3.1 Basophils % 0.2 Absolute Neutrophils 5.2 Absolute Lymphocytes 2.0 Absolute Monocytes 0.7 Absolute Eosinophils 0.3 Absolute Basophils 0.0 Sodium 139.5 Potassium 3.6 Chloride 98 Carbon Dioxide 30 Anion Gap 12 BUN 35 H Creatinine 2.47 H Est GFR ( Amer) 31 L Est GFR (Non-Af Amer) 26 L Glucose 100 Calcium 8.6 Magnesium 1.9 Total Bilirubin 0.4 AST 16 L ALT 18 L Alkaline Phosphatase 81 Total Protein 6.1 L Albumin 3.2 L 07/10/18 07/10/18 12:00 12:00 Troponin I < 0.012 NT-Pro-B Natriuret Pep 4200 H Impressions: Chest CT 07/10/18 13:17 IMPRESSION: Slightly increased large right pleural effusion and lower lobe atelectasis -airspace disease. Similar patchy -ground-glass and nodular opacities in the right upper lobe. Despite the radiographic appearance, the left pleural effusion has slightly diminished compared with the prior exam with minimal lateral segment left lower lobe subsegmental atelectasis. Thoracentesis Ultrasound 07/13/18 00:00 IMPRESSION: SUCCESSFUL PLACEMENT OF A RIGHT SIDED CHEST TUBE USING ULTRASOUND GUIDANCE. Pleural fluid specimen was sent to cytology. Chest X-Ray 07/14/18 06:00 IMPRESSION: Stable small bore right basilar chest tube. No pneumothorax. Stable small bilateral pleural effusions and bibasilar opacities, likely atelectasis. Assessment and Plan - Diagnosis (1) Acute respiratory failure with hypoxia Is this a current diagnosis for this admission?: Yes Plan: Improving. Likely due to underlying pleural effusion due to chronic CHF and worsening CKD. Status post ultrasound-guided right-sided chest tube placement. SBP 107-122, pulse 70s, RR 16-20, SPO2 95 to 97% on 2 L FiO2 28% NC. 07/13/2018: Successful placement of right-sided chest tube using ultrasound tierra ailyn and pigtail catheter placement. 07/14/2018: Chest x-ray shows mild improvement of the right-sided pleural effusion. No fluid was sent for analysis, have contacted laboratories and have confirmed that they did not receive any pleural fluid. 06/15/2018. Thoracentesis fluid analysis. Red, appearance cloudy, WBC 333, RBC 08797, segmented neutrophils 4%, lymphocytes 89%, glucose 139, LDH 242, amylase 51. 06/15/2018. Right pleural fluid cytology report. No cells diagnostic of carcinoma are seen. (2) Acute kidney injury superimposed on chronic kidney disease Is this a current diagnosis for this admission?: Yes Plan: Improving. Back to baseline. Nonoliguric. 07/14/2018. SBP 107-122, pulse 70s, RR 16-20, SPO2 95 to 97% on 2 L FiO2 28% NC. WBC 8.3, hemoglobin 10.8, platelets 187, sodium 139.5, potassium 3.6, bicarb 30, creatinine 2.47 up from 1.4 from admission, baseline 2.4. Renal ultrasound ordered. Monitor volume status, monitor electrolytes, CMP tomorrow. Outpatient nephrology follow-up. Avoid nephrotoxic meds. (3) COPD (chronic obstructive pulmonary disease) Qualifiers: COPD type: unspecified COPD Qualified Code(s): J44.9 - Chronic obstructive pulmonary disease, unspecified Is this a current diagnosis for this admission?: No Plan: Not seem to be an acute exacerbation. SBP 107-122, pulse 70s, RR 16-20, SPO2 95 to 97% on 2 L FiO2 28% NC. Continue PRN nebs, BiPAP, LABA, LAMA and PRN DuoNeb's. (4) Chronic diastolic heart failure Is this a current diagnosis for this admission?: Yes Plan: Acutely exacerbated diastolic heart failure. 07/10/2018 BNP 4200. Up from 1640 on 06/13/2018. 06/17/2018. 2D echo LVEF 60%. Mild diastolic dysfunction. Severe mitral regurgitation and pulmonary hypertension. Continue cardiac diet, IV Lasix, beta-blockers, COLE. (5) Pleural effusion, right Is this a current diagnosis for this admission?: Yes Plan: Recurrent likely due to underlying pleural effusion due to chronic CHF and worsening CKD. Cytology from 06/15/2018 was negative for any malignancy. Status post ultrasound-guided right-sided chest tube placement. 07/14/2018 right- sided chest tube drain 390 mL. SBP 107-122, pulse 70s, RR 16-20, SPO2 95 to 97% on 2 L FiO2 28% NC. 07/13/2018: Successful placement of right-sided chest tube using ultrasound guidance and pigtail catheter placement. 07/14/2018: Chest x-ray shows mild improvement of the right-sided pleural effusion. No fluid was sent for analysis, have contacted laboratories and have confirmed that they did not receive any pleural fluid. 06/15/2018. Thoracentesis fluid analysis. Red, appearance cloudy, WBC 333, RBC 66410, segmented neutrophils 4%, lymphocytes 89%, glucose 139, LDH 242, amylase 51. 06/15/2018. Right pleural fluid cytology report. No cells diagnostic of carcinoma are seen. (6) Anemia Qualifiers: Anemia type: due to chronic kidney disease Chronic kidney disease stage: stage 3 (moderate) Qualified Code(s): N18.3 - Chronic kidney disease, stage 3 (moderate); D63.1 - Anemia in chronic kidney disease Is this a current diagnosis for this admission?: No Plan: Likley due to CKD. 06/17/2018. Iron 61.3, TIBC 208, percent saturation 29% ferritin 494. Daily H&H. Transfuse if less than 8, symptomatic, actively bleeding. Outpatient nephrology follow-up. (7) Hypertension Qualifiers: Hypertension type: essential hypertension Qualified Code(s): I10 - Essential (primary) hypertension Is this a current diagnosis for this admission?: Yes Plan: Normotensive. Continue carvedilol 12.5 p.o. twice daily, diltiazem 240 mg p.o. twice daily, hydralazine 25 mg p.o. 3 times daily, lisinopril 2.5 mg p.o. daily, Lasix 40 mg p.o. twice daily. Will adjust meds as needed.
[2018-07-14] MEDS: TRAMADOL HCL 50 MG TABLET PO PRN (17:10)
[2018-07-14] MEDS: FUROSEMIDE 40 MG TABLET PO SCH (17:10)
[2018-07-14] MEDS: ACETAMINOPHEN 325 MG TABLET PO PRN (17:11)
[2018-07-14] MEDS: HYDRALAZINE HCL 25 MG TABLET PO SCH (22:35)
[2018-07-14] MEDS: AMITRIPTYLINE HCL 25 MG TABLET PO SCH (22:35)
[2018-07-15] MEDS: LEVOTHYROXINE SODIUM 0.025 MG TABLET PO SCH (06:26)
[2018-07-15] MEDS: HYDRALAZINE HCL 25 MG TABLET PO SCH ×2 (06:26→14:21)
[2018-07-15] MEDS: HEPARIN SOD (PORCINE) 5,000 UNIT/ML 1 ML SYRINGE SUBCUT SCH ×2 (06:26→14:22)
[2018-07-15 06:55] LABS: ABSOLUTE EOSINOPHILS # (AUTO) 0.4 10^3/uL (0.0-0.6); ABSOLUTE LYMPHOCYTES (AUTO) 1.8 10^3/uL (0.5-4.7); ABSOLUTE MONOCYTES (AUTO) 0.7 10^3/uL (0.1-1.4); ABSOLUTE NEUT (AUTO) 4.4 10^3/uL (1.7-8.2); BASOPHILS % (AUTO) 0.5 % (0-2); EOSINOPHILS % (AUTO) 5.4 % (0-6); HEMATOCRIT 29.3 % (37.9-51.0); HEMOGLOBIN 9.7 g/dL (13.5-17.0); LYMPHOCYTES % (AUTO) 24.1 % (13-45); MEAN CORPUSCULAR HEMOGLOBIN 29.4 pg (27.0-33.4); MEAN CORPUSCULAR HGB CONC 33.2 g/dL (32.0-36.0); MEAN CORPUSCULAR VOLUME 89 fl (80-97); MONOCYTES % (AUTO) 9.6 % (3-13); PLATELET COUNT 152 10^3/uL (150-450); RED BLOOD COUNT 3.31 10^6/uL (4.35-5.55); RED CELL DISTRIBUTION WIDTH 15.5 % (11.5-14.0); SEGMENTED NEUTROPHILS % (AUTO) 60.4 % (42-78); TOTAL CELLS COUNTED % (AUTO) 100 %; WHITE BLOOD COUNT 7.3 10^3/uL (4.0-10.5)
[2018-07-15 07:15] LABS: ALANINE AMINOTRANSFERASE 22 U/L (21-72); ALBUMIN 2.9 g/dL (3.5-5.0); ALKALINE PHOSPHATASE 73 U/L (38-126); ANION GAP 8 (5-19); ASPARTATE AMINO TRANSFERASE 16 U/L (17-59); BILIRUBIN,DIRECT 0.3 mg/dL (0.0-0.4); BILIRUBIN,TOTAL 0.5 mg/dL (0.2-1.3); BLOOD UREA NITROGEN 37 mg/dL (7-20); CALCIUM 8.6 mg/dL (8.4-10.2); CARBON DIOXIDE 27 mmol/L (22-30); CHLORIDE 100 mmol/L (98-107); GLUCOSE 100 mg/dL (75-110); POTASSIUM 3.7 mmol/L (3.6-5.0); SODIUM 134.7 mmol/L (137-145); TOTAL PROTEIN 5.6 g/dL (6.3-8.2)
[2018-07-15] MEDS: LEVOTHYROXINE SODIUM 0.1 MG TABLET PO SCH (08:12)
[2018-07-15] MEDS: PANTOPRAZOLE SODIUM 20 MG TABLET.DR PO SCH (08:12)
[2018-07-15] MEDS: IPRATROPIUM/ALBUTEROL 0.5-2.5 MG/3 ML AMPUL NEB SCH (08:13)
[2018-07-15] MEDS ORDERED: LISINOPRIL 5 MG TABLET PO SCH (10:00)
[2018-07-15] MEDS: ASPIRIN 81 MG TABLET, ENT COATED PO SCH (10:19)
[2018-07-15] MEDS: GUAIFENESIN 600 MG TABLET.SA PO SCH (10:19)
[2018-07-15] MEDS: CARVEDILOL 12.5 MG TABLET PO SCH (10:19)
[2018-07-15] MEDS: FUROSEMIDE 40 MG TABLET PO SCH (10:19)
[2018-07-15] MEDS: BUSPIRONE HCL 10 MG TABLET PO SCH (10:19)
[2018-07-15] MEDS: SERTRALINE HCL 50 MG TABLET PO SCH (10:20)
[2018-07-15] MEDS: DILTIAZEM HCL 240 MG CAPSULE.CR PO SCH (10:20)
[2018-07-15] MEDS: TAMSULOSIN HCL 0.4 MG CAP.SR.24H PO SCH (10:21)
[2018-07-15] MEDS: LIOTHYRONINE SODIUM 25 MCG TABLET PO SCH (10:21)
[2018-07-15] MEDS: FERROUS SULFATE 325 MG TABLET PO SCH (10:21)
[2018-07-15] MEDS: FLUTICASONE NASAL SPRAY 50 MCG/SPRY 120 SPRAY/16 GM NASL SCH (10:22)
--- NOTE | 2018-07-15 10:51 | RADIOLOGY REPORT (SQ) ---
EXAM DESCRIPTION: CHEST SINGLE VIEW COMPLETED DATE/TIME: 07/15/2018 9:30 am REASON FOR STUDY: pleural effusion follow up COMPARISON: CT chest 07/10/2018 Chest films 07/11/2018, 07/13/2018, 07/14/2018 EXAM PARAMETERS: NUMBER OF VIEWS: One view. TECHNIQUE: Single frontal radiographic view of the chest acquired. RADIATION DOSE: NA LIMITATIONS: None. FINDINGS: LUNGS AND PLEURA: Small caliber right pleural space pigtail catheter unchanged. No pneumo thorax. There is minimal residual pleural fluid in the right lateral costophrenic sulcus, unchanged from 2018. There is bandlike scarring in the lateral right lung base. No other right-sided infiltrates. Minimal blunting left lateral costophrenic sulcus from trace pleural fluid. No significant left-side d infiltrates. No left pneumothorax. MEDIASTINUM AND HILAR STRUCTURES: No masses. Contour normal. HEART AND VASCULAR STRUCTURES: Cardiomegaly BONES: No acute findings. HARDWARE: Right-sided pleural space pigtail catheter, no pneumothorax OTHER: No other significant finding. IMPRESSION: Trace residual right pleural fluid in the lateral costophrenic sulcus. Interval re-expansion of the right lower lobe with persistent scarring in the lateral right lung base . TECHNICAL DOCUMENTATION: JOB ID: [id number] [employer]- All Rights Reserved Reading location - IP/workstation name: [email or web address]
[2018-07-15] MEDS: ACETAMINOPHEN 325 MG TABLET PO PRN (12:20)
[2018-07-15] MEDS: TRAMADOL HCL 50 MG TABLET PO PRN (12:21)
--- NOTE | 2018-07-15 13:51 | RADIOLOGY REPORT (SQ) ---
EXAM DESCRIPTION: CHEST SINGLE VIEW COMPLETED DATE/TIME: 07/15/2018 1:19 pm REASON FOR STUDY: CHEST TUBE REMOVAL COMPARISON: 07/15/2018 at 0900 hours TECHNIQUE: Single frontal radiographic view of the chest acquired. NUMBER OF VIEWS: One view. LIMITATIONS: None. FINDINGS: LUNGS AND PLEURA: No pneumothorax. No acute consolidation. Similar bilateral pleural effu sions. MEDIASTINUM AND HILAR STRUCTURES: Stable. HEART AND VASCULAR STRUCTURES: Stable. BONES: No acute findings. HARDWARE: None in the chest. OTHER: No other significant finding. IMPRESSION: No pneumothorax. No acute consolidation. Similar bilateral pleural effusions. TECHNICAL DOCUMENTATION: JOB ID: [id number] [employer]- All Rights Reserved Reading location - IP/workstation name: [email or web address]
[2018-07-15 14:20] VITALS: BP 165/87
--- NOTE | 2018-07-22 15:30 | PDOC DISCHARGE SUMMARY ---
General - Admit/Disc Date/PCP Admission Date/Primary Care Provider: 07/10/18 15:37 RITCHIE HENLEY MD Discharge Date: 07/15/18 - Discharge Diagnosis (1) Acute respiratory failure with hypoxia Is this a current diagnosis for this admission?: Yes (2) Acute kidney injury superimposed on chronic kidney disease Is this a current diagnosis for this admission?: Yes (3) COPD (chronic obstructive pulmonary disease) Is this a current diagnosis for this admission?: No (4) Chronic diastolic heart failure Is this a current diagnosis for this admission?: Yes (5) Pleural effusion, right Is this a current diagnosis for this admission?: Yes (6) Anemia Is this a current diagnosis for this admission?: No (7) Hypertension Is this a current diagnosis for this admission?: Yes - Additional Information Resuscitation Status: Do Not Intubate Discharge Diet: Cardiac Discharge Activity: Activity As Tolerated, Balance Activity w/Rest, Weigh Daily Prescriptions: Furosemide [Lasix 40 mg Tablet] 40 mg PO BID 30 Days #60 tablet Lisinopril [Prinivil 5 mg Tablet] 2.5 mg PO DAILY 30 Days #30 tablet Home Medications: Amitriptyline HCl [Elavil 25 mg Tablet] 25 mg PO QHS 07/12/16 Hydralazine HCl [Apresoline 25 mg Tablet] 25 mg PO Q8 07/12/16 Levothyroxine Sodium [Synthroid] 25 mcg PO QAM 07/12/16 Levothyroxine Sodium [Synthroid] 200 mcg PO QAM 07/12/16 Tamsulosin HCl [Flomax 0.4 mg Cap.sr] 0.4 mg PO DAILY 07/12/16 Brinzolamide/Brimonidine Tart [Simbrinza 1%-0.2% Eye Drops] 1 drop OS Q12 06/13/18 Carvedilol [Coreg 12.5 mg Tablet] 12.5 mg PO Q12 06/13/18 Cyclobenzaprine HCl [Flexeril 10 mg Tablet] 10 mg PO Q12HP PRN 06/13/18 Diltiazem HCl [Cardizem Cd 240 mg Capsule.cr] 240 mg PO Q12 06/13/18 Fluticasone Propionate [Flonase Nasal Dighton 50 Mcg/Dighton 16 gm] 2 spray NASL DAILY 06/13/18 Iron 65 65 mg PO DAILY 06/13/18 Pantoprazole Sodium [Protonix [address] Tablet] 20 mg PO QAM 06/13/18 Tramadol HCl [Ultram 50 mg Tablet] 50 mg PO TIDP PRN 06/13/18 Alprazolam [Xanax 0.5 mg Tablet] 0.5 mg PO Q8HP PRN #9 tab 06/17/18 Buspirone HCl [Buspar 10 mg Tablet] 15 mg PO DAILY 07/11/18 Ipratropium/Albuterol Sulfate [Duoneb 3 ml Ampul] 3 ml NEB Q6HP PRN 07/11/18 Multivitamin [Daily Multiple Vitamin] 1 each PO DAILY 07/11/18 Polyethylene Glycol 3350 [Clearlax] 17 gm PO BIDP PRN 07/11/18 Sertraline HCl [Zoloft 50 mg Tablet] 50 mg PO DAILY 07/11/18 Furosemide [Lasix 40 mg Tablet] 40 mg PO BID 30 Days #60 tablet 07/15/18 Lisinopril [Prinivil 5 mg Tablet] 2.5 mg PO DAILY 30 Days #30 tablet 07/15/18 History of Present Illness History of Present Illness: 77 year old male with a complex medical history. He was just discharged from this facility on June 17. He states that 3 to 4 days ago he began to notice increasing shortness of breath. He tried his nebulizer treatments but they were ineffective. He was coughing up white sputum. His reports that in addition to the patient experiencing fever and chills he feels cold all of the time. In addition he reports some discomfort on the right side of his back from the last thoracentesis. The patient was hypoxic on presentation to the emergency department. He required 3 L nasal cannula to achieve 90% or better ox ygenation. He was slightly hypertensive. His white blood cell count was normal but due to the respiratory compromise and risk of infection the patient will be admitted by the hospitalist service. Hospital Course Hospital Course: (1) Acute respiratory failure with hypoxia Improved. Likely due to underlying pleural effusion due to chronic CHF and worsening CKD. Status post ultrasound-guided right-sided chest tube placement. Removed on the day of discharge by radiology. 18 cc. Total approximately 2 L. Chest x-ray post removal of chest tube showed trace residual right pleural fluid in the lateral costophrenic sulcus. SBP 107-122, pulse 70s, RR 16-20, SPO2 95 to 97% on 2 L NC. Patient discharged home on home O2. He has his CPAP and O2 supplies at home. 07/15/2018. Successful removal of right-sided chest tube. 07/14/2018: Chest x-ray shows mild improvement of the right-sided pleural effusion. 07/13/2018: Successful placement of right-sided chest tube using ultrasound guidance and pigtail catheter placement. No fluid was sent for analysis, have contacted laboratories and have confirmed that they did not receive any pleural fluid. 06/15/2018. Thoracentesis fluid analysis. Red, appearance cloudy, WBC 333, RBC 17055, segmented neutrophils 4%, lymphocytes 89%, glucose 139, LDH 242, amylase 51. 06/15/2018. Right pleural fluid cytology report. No cells diagnostic of carcinoma are seen. An appointment was made for him to see Dr. Venegas as outpatient on 08/26/2018 for evaluation of pleural effusion. (2) Acute kidney injury superimposed on chronic kidney disease Improved. Back to baseline. Nonoliguric. Follow-up with entry level paralegal in [facility] as outpatient. (3) COPD (chronic obstructive pulmonary disease) Did not seem to be an acute exacerbation. SPO2 95 to 97% on 2 L FiO2 28% NC. Continued PRN nebs, BiPAP, LABA, LAMA and PRN DuoNeb's. Outpatient follow-up with Dr. Venegas (4) Chronic diastolic heart failure Acutely exacerbated diastolic heart failure. 07/10/2018 BNP 4200. Up from 1640 on 06/13/2018. 06/17/2018. 2D echo LVEF 60%. Mild diastolic dysfunction. Severe mitral regurgitation and pulmonary hypertension. Maintained negative fluid balance. Continued on cardiac diet, IV Lasix, beta- blockers, COLE. (5) Pleural effusion, right Recurrent likely due to underlying pleural effusion due to chronic CHF and worsening CKD. Cytology from 06/15/2018 was negative for any malignancy. Status post ultrasound-guided right-sided chest tube placement. 07/13/2018: Successful placement of right-sided chest tube using ultrasound guidance and pigtail catheter placement. 07/14/2018: Chest x-ray shows mild improvement of the right-sided pleural effusion. No fluid was sent for analysis, have contacted laboratories and have confirmed that they did not receive any pleural fluid. 06/15/2018. Thoracentesis fluid analysis. Red, appearance cloudy, WBC 333, RBC 67641, segmented neutrophils 4%, lymphocytes 89%, glucose 139, LDH 242, amylase 51. 06/15/2018. Right pleural fluid cytology report. No cells diagnostic of carcinoma are seen. (6) Anemia Geremias due to CKD. 06/17/2018. Iron 61.3, TIBC 208, percent saturation 29% ferritin 494. Daily H&H. Transfuse if less than 8, symptomatic, actively bleeding. Outpatient nephrology follow-up. (7) Hypertension Normotensive. Continue carvedilol 12.5 p.o. twice daily, diltiazem 240 mg p.o. twice daily, hydralazine 25 mg p.o. 3 times daily, lisinopril 2.5 mg p.o. daily, Lasix 40 mg p.o. twice daily. Appointment was made for him to see his PCP Andrea wOen on 07/26/2018. Physical Exam Vital Signs: Temp Pulse Resp BP Pulse Ox 97.6 F 79 17 165/87 H 98 07/15/18 14:19 07/15/18 14:19 07/15/18 14:19 07/15/18 14:19 07/15/18 14:19 General appearance: PRESENT: no acute distress, well-developed, well-nourished Head exam: PRESENT: atraumatic, normocephalic Eye exam: PRESENT: conjunctiva pink, EOMI, PERRLA. ABSENT: scleral icterus Ear exam: PRESENT: normal external ear exam Mouth exam: PRESENT: moist, tongue midline Neck exam: ABSENT: carotid bruit, JVD, lymphadenopathy, thyromegaly Respiratory exam: PRESENT: clear to auscultation brenda. ABSENT: rales, rhonchi, wheezes Cardiovascular exam: PRESENT: RRR. ABSENT: diastolic murmur, rubs, systolic murmur Pulses: PRESENT: normal dorsalis pedis pul Vascular exam: PRESENT: normal capillary refill GI/Abdominal exam: PRESENT: normal bowel sounds, soft. ABSENT: distended, guarding, mass, organolmegaly, rebound, tenderness Rectal exam: PRESENT: deferred Extremities exam: PRESENT: full ROM. ABSENT: calf tenderness, clubbing, pedal edema Neurological exam: PRESENT: alert, awake, oriented to person, oriented to place, oriented to time, oriented to situation, CN II-XII grossly intact. ABSENT: motor sensory deficit Psychiatric exam: PRESENT: appropriate affect, normal mood. ABSENT: homicidal ideation, suicidal ideation Skin exam: PRESENT: dry, intact, warm. ABSENT: cyanosis, rash Results Laboratory Results: 07/15/18 06:30 07/15/18 06:30 07/10/18 07/10/18 12:00 12:00 Troponin I < 0.012 NT-Pro-B Natriuret Pep 4200 H Impressions: Chest CT 07/10/18 13:17 IMPRESSION: Slightly increased large right pleural effusion and lower lobe atelectasis -airspace disease. Similar patchy -ground-glass and nodular opacities in the right upper lobe. Despite the radiographic appearance, the left pleural effusion has slightly diminished compared with the prior exam with minimal lateral segment left lower lobe subsegmental atelectasis. Thoracentesis Ultrasound 07/13/18 00:00 IMPRESSION: SUCCESSFUL PLACEMENT OF A RIGHT SIDED CHEST TUBE USING ULTRASOUND GUIDANCE. Pleural fluid specimen was sent to cytology. Chest X-Ray 07/15/18 08:23 IMPRESSION: Trace residual right pleural fluid in the lateral costophrenic sulcus. Interval re-expansion of the right lower lobe with persistent scarring in the lateral right lung base. Qualifiers - * PATIENT BEING DISCHARGED WITH ANY OF THE FOLLOWING DIAGNOSIS: No Acute Heart Failure Is this a Heart Failure Patient?: No
== END 2018-07-15 14:35 | disposition home or self-care (01) | DRG 291 ==
LOC: ER 12:28 → EH 15:37 → 5 19:55
PROVIDERS: ADMIT Hospitalist; ATTEND Hospitalist
PROC: 3E0F3GC Introduction of Other Therapeutic Substance into Respiratory Tract, Percutaneous Approach (ICD-10-PCS; 2018-07-10)
PROC: 0W9930Z Drainage of Right Pleural Cavity with Drainage Device, Percutaneous Approach (ICD-10-PCS; principal; 2018-07-13)
DX: I13.0 Hypertensive heart and chronic kidney disease with heart failure and stage 1 through stage 4 chronic kidney disease, or unspecified chronic kidney disease (principal); J96.01 Acute respiratory failure with hypoxia; I50.33 Acute on chronic diastolic (congestive) heart failure; N17.9 Acute kidney failure, unspecified; J90 Pleural effusion, not elsewhere classified; J44.9 Chronic obstructive pulmonary disease, unspecified; I27.22 Pulmonary hypertension due to left heart disease; I27.81 Cor pulmonale (chronic); N18.3 Chronic kidney disease, stage 3 (moderate); D63.1 Anemia in chronic kidney disease; I34.0 Nonrheumatic mitral (valve) insufficiency; I25.10 Atherosclerotic heart disease of native coronary artery without angina pectoris; E78.5 Hyperlipidemia, unspecified; E03.9 Hypothyroidism, unspecified; K21.9 Gastro-esophageal reflux disease without esophagitis; M19.90 Unspecified osteoarthritis, unspecified site; I44.0 Atrioventricular block, first degree; N40.0 Benign prostatic hyperplasia without lower urinary tract symptoms; I25.2 Old myocardial infarction; Z90.49 Acquired absence of other specified parts of digestive tract; Z87.891 Personal history of nicotine dependence; Z79.52 Long term (current) use of systemic steroids; Z88.0 Allergy status to penicillin; Z88.8 Allergy status to other drugs, medicaments and biological substances; Z83.6 Family history of other diseases of the respiratory system; Z82.49 Family history of ischemic heart disease and other diseases of the circulatory system
CPT/HCPCS: 32555; 32557; 36415; 71045; 71250; 80048; 80053; 81001; 82803; 83605; 83735; 83880; 84443; 84481; 84484; 85025; 85610; 87040; 87086; 88305; 88313; 88341; 88342; 93005; 93010; 94640; 96374; 99285; C1769; C1887; C1894; J1644; J1940; J3490; J7620

== ENCOUNTER → 2018-08-08 | Outpatient (CLI) | payer MEDICARE, OTHER ==
--- NOTE | 2018-08-09 12:01 | RADIOLOGY REPORT (SQ) ---
EXAM DESCRIPTION: PET CT SKULL/THIGH COMPLETED DATE/TIME: 08/08/2018 10:55 pm REASON FOR STUDY: (R91.1)SOLITARY PULMONARY NODULE R91.1 SOLITARY PULMONARY NODULE COMPARISON: None. RADIONUCLIDE AND DOSE: 11.37 mCi F18 FDG The route of agent administration: Intravenous FASTING BLOOD SUGAR: 102 mg/dl CONTRAST TYPE AND DOSE: No CT contrast given. TECHNIQUE: Blood glucose level was verified. Above dose of FDG was injected intravenously. 2-D seg mented attenuation correction images were obtained from the base of the skull to the midthighs. Nonc ontrast CT images were obtained for attenuation correction and fusion with emission images. CT image s were performed without oral or intravenous contrast and are not sensitive for parenchymal lesions. A series of overlapping emission PET images were obtained. Images reviewed and manipulated at [facility] work station by the radiologist. Images stored on PACS. LIMITATIONS: None. FINDINGS: HEAD AND NECK: No areas of abnormal metabolic activity in the soft tissues of the head and neck. CHEST: There is a rind of increased uptake along the pleural margin of the right lower lobe. This me asures 2.0 SUV. Interval decrease in right pleural effusion since 07/10/2018. ABDOMEN AND PELVIS: No areas of abnormal metabolic activity in the abdomen or pelvis. Expected physi ologic activity is present in the genitourinary system and bowel. PROXIMAL LOWER EXTREMITIES: No areas of abnormal metabolic activity in the soft tissues of the lower extremities. BONES: No abnormal metabolic activity in the visualized skeleton. ADDITIONAL CT FINDINGS: Moderate emphysema. Aortoiliac endograft. OTHER: Liver uptake 1.9 SUV. Blood pool 1.7 SUV. IMPRESSION: Borderline significant uptake associated with decreasing right pleural effusion, most li maritza inflammatory. TECHNICAL DOCUMENTATION: JOB ID: [id number] [employer]- All Rights Reserved Reading location - IP/workstation name: [email or web address]
== END ==
LOC: RAD 16:45
PROVIDERS: ATTEND Internal Medicine Medical Oncology
DX: R91.1 Solitary pulmonary nodule (principal)
CPT/HCPCS: 78815; A9552

== ENCOUNTER 2019-12-23 22:05 | Emergency (ER) | payer MEDICARE, OTHER ==
[2019-12-23 22:58] LABS: ABSOLUTE EOSINOPHILS # (AUTO) 0.4 10^3/uL (0.0-0.6); ABSOLUTE LYMPHOCYTES (AUTO) 1.3 10^3/uL (0.5-4.7); ABSOLUTE MONOCYTES (AUTO) 0.6 10^3/uL (0.1-1.4); BASOPHILS % (AUTO) 0.2 % (0-2); EOSINOPHILS % (AUTO) 3.9 % (0-6); HEMATOCRIT 33.6 % (37.9-51.0); HEMOGLOBIN 11.4 g/dL (13.5-17.0); LYMPHOCYTES % (AUTO) 11.1 % (13-45); MEAN CORPUSCULAR HEMOGLOBIN 31.1 pg (27.0-33.4); MEAN CORPUSCULAR HGB CONC 33.9 g/dL (32.0-36.0); MEAN CORPUSCULAR VOLUME 92 fl (80-97); MONOCYTES % (AUTO) 5.1 % (3-13); PLATELET COUNT 180 10^3/uL (150-450); RED BLOOD COUNT 3.66 10^6/uL (4.35-5.55); SEGMENTED NEUTROPHILS % (AUTO) 79.7 % (42-78); TOTAL CELLS COUNTED % (AUTO) 100 %; WHITE BLOOD COUNT 11.3 10^3/uL (4.0-10.5)
[2019-12-23 23:10] LABS: ALBUMIN 3.5 g/dL (3.5-5.0); ALKALINE PHOSPHATASE 98 U/L (38-126); ANION GAP 7 (5-19); ASPARTATE AMINO TRANSFERASE 23 U/L (17-59); BILIRUBIN,DIRECT 0.4 mg/dL (0.0-0.4); BILIRUBIN,TOTAL 0.4 mg/dL (0.2-1.3); BLOOD UREA NITROGEN 27 mg/dL (7-20); CALCIUM 8.9 mg/dL (8.4-10.2); CARBON DIOXIDE 25 mmol/L (22-30); CHLORIDE 106 mmol/L (98-107); CREATINE KINASE 24 U/L (55-170); GLUCOSE 123 mg/dL (75-110); POTASSIUM 4.4 mmol/L (3.6-5.0)
[2019-12-23 23:22] LABS: CREATINE KINASE MB 0.35 ng/mL (<4.55); TROPONIN I < 0.012 ng/mL
--- NOTE | 2019-12-23 23:22 | RADIOLOGY REPORT (SQ) ---
EXAM DESCRIPTION: XR CHEST 1 VIEW COMPLETED DATE/TME: 12/23/2019 22:20 CLINICAL HISTORY: 79 years, Male, chest pain COMPARISON: 07/15/2018 NUMBER OF VIEWS: One TECHNIQUE: AP view of the chest LIMITATIONS: None. FINDINGS: There is mild pulmonary vascular congestion with worsening prominent interstitial opacities. There is a trace amount of fluid within the minor fissure. No pneumothorax or large pleural effusion. Heart is enlarged. Bones are demineralized. IMPRESSION: Pulmonary vascular congestion with worsening diffuse interstitial opacities, likely represent pulmonary edema. copyright 2010 [employer]- All Rights Reserved
--- NOTE | 2019-12-23 23:43 | ER Document Report ---
ED Cardiac - General TRAVEL OUTSIDE OF THE [place] IN LAST 30 DAYS: No <[email or web address] - Last Filed: 12/24/19 07:52> <ARMANDO SUAREZ - Last Filed: 12/24/19 15:44> - General Chief Complaint: Chest Pain Stated Complaint: CHEST PAIN Time Seen by Provider: 12/23/19 23:27 Notes: Patient is a 79-year-old male who comes emergency department for chief complaint of chest pain that started around 7:30 PM tonight. He states he was just sitting when the pain began. Patient comes by EMS, patient took 324 mg of aspirin prior to them coming to get him, 1 nitroglycerin, they gave him 2 additional nitroglycerin and 1 mg of Dilaudid. Patient denies current symptoms. Patient states pain felt like pressure and discomfort going through to his back. He states he felt nausea with it but denies vomiting. Symptoms started shortly after eating dinner which was [place] rice, however patient states pain was only up in his chest, he denies any upper abdominal pain or mid to lower back pain. He denies shortness of breath, cough, fever/chills. Patient has a history of hypertension, CHF, COPD, former smoking. He states he has never had an AK or cardiac stent. He lives at home with his . (BHARTI RENTERIA) - Related Data Allergies/Adverse Reactions: iodine [Iodine] Allergy (Mild, Verified 12/23/19 23:39) itching, burning Penicillins Allergy (Mild, Verified 12/23/19 23:39) welts, nausea, nomiting Past Medical History - General Information source: Patient - Social History Smoking Status: Former Smoker Frequency of alcohol use: None Drug Abuse: None Lives with: Family Family History: CAD, COPD - Past Medical History Cardiac Medical History: Reports: Hx Coronary Artery Disease, Hx Heart Attack, Hx Hypercholesterolemia, Hx Hypertension Pulmonary Medical History: Reports: Hx COPD Denies: Hx Asthma, Hx Bronchitis, Hx Pneumonia Neurological Medical History: Denies: Hx Cerebrovascular Accident, Hx Seizures Endocrine Medical History: Reports: Hx Hypothyroidism Renal/ Medical History: Reports: Hx Benign Prostatic Hyperplasia. Denies: Hx Peritoneal Dialysis GI Medical History: Reports: Hx Diverticulitis, Hx Gastroesophageal Reflux Disease Musculoskeletal Medical History: Reports Hx Arthritis Psychiatric Medical History: Denies: Hx Depression Past Surgical History: Reports: Hx Abdominal Surgery - colectomy, Hx Appendectomy, Other - Back Surgery (Patient is unsure what type) also had a partial colectomy. Denies: Hx Pacemaker - Immunizations Hx Diphtheria, Pertussis, Tetanus Vaccination: Yes Hx Pneumococcal Vaccination: 12/07/16 <BHARTI RENTERIA - Last Filed: 12/24/19 07:52> Review of Systems - Review of Systems Constitutional: No symptoms reported EENT: No symptoms reported Cardiovascular: See HPI Respiratory: No symptoms reported Gastrointestinal: No symptoms reported Genitourinary: No symptoms reported Male Genitourinary: No symptoms reported Musculoskeletal: No symptoms reported Skin: No symptoms reported Hematologic/Lymphatic: No symptoms reported Neurological/Psychological: No symptoms reported <BHARTI RENTERIA - Last Filed: 12/24/19 07:52> Physical Exam <BHARTI RENTERIA - Last Filed: 12/24/19 07:52> - Vital signs Vitals: Pulse Ox 97 12/23/19 22:09 - Notes Notes: GENERAL: Alert, interacts well. No acute distress. HEAD: Normocephalic, atraumatic. EYES: Pupils equal, round, and reactive to light. Extraocular movements intact. ENT: Oral mucosa moist, tongue midline. Oropharynx unremarkable. Airway patent. Rhinophyma LUNGS: Clear to auscultation except in the bases where I can hear rales bilaterally. No wheezes or rhonchi. No tachypnea, labored breathing, respiratory distress. HEART: Regular rate and rhythm. No murmur ABDOMEN: Soft, non-tender. Non-distended. EXTREMITIES: Moves all 4 extremities spontaneously. No edema, normal radial and dorsalis pedis pulses bilaterally. No cyanosis. BACK: no cervical, thoracic, lumbar midline tenderness. No saddle anesthesia, normal distal neurovascular exam. Moves all extremities in full range of motion. NEUROLOGICAL: Alert and oriented x3. Normal speech. Cranial nerves II through XII grossly intact. Strength 5/5 in all extremities. PSYCH: Normal affect, normal mood. SKIN: Warm, dry, normal turgor. No rashes or lesions noted. (BHARTI RENTERIA) Course - Laboratory Result Diagrams: 12/23/19 22:33 12/23/19 22:33 <BHARTI RENTERIA - Last Filed: 12/24/19 07:52> - Laboratory Result Diagrams: 12/23/19 22:33 12/23/19 22:33 <ARMANDO SUAREZ - Last Filed: 12/24/19 15:44> - Re-evaluation Re-evalutation: Patient is mildly hypoxic on room air he is 91 to 93%. He has obvious rales in the lungs bilaterally in the lower lung carlson. However he speaks in full sentences, he is not in respiratory distress, his chest pain has resolved. He has already received 3 sublingual nitroglycerin doses. He has no severe swelling of the lower extremities. Remaining exam is unremarkable. CBC shows mild leukocytosis at 11,000 with elevation of neutrophils but no bandemia. Chest x-ray does not show obvious pneumonia but does show pulmonary vascular congestion. 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 BNP is 35,000 which is elevated from prior, troponin is negative, chemistry shows chronic kidney disease which is approximately at baseline. I placed the patient on oxygen and then his hypoxia resolved from 91% on repeat evaluation to 96% on 2 L nasal cannula. Giving Lasix. Patient follows with director of retail operations Dr. Hernandez. Because of his chest pain with multiple risk factors, pulmonary vascular congestion with oxygen requirement, discussed with patient and , will discuss with hospitalist for admission. Second troponin is elevated at 0.084. This is not positive but it is trending upwards. Reevaluated patient and he is still chest pain-free. He states he was thinking about going home and he still is considering it. I discussed his work-up in detail, after the discussion patient states he agrees to either be admitted or transferred at this time. 12/24/19 03:[address] Bernal, cardiology on-call, he states that because patient has multiple risk factors, he is elderly, he has an oxygen requirement and vascular congestion, along with elevated troponins, he feels patient would be best served at a tertiary care center. Called and spoke with [facility], pending callback and acceptance, they state that the do have a temporary wait list. Patient was placed on this. Patient is hoping to go to [facility], this is where his director of retail operations Dr. Hernandez is affiliated. 12/24/19 05:25 Patient's troponin has now more than doubled from the initial repeat. This is consistent with an NSTEMI. Initiated heparin drip, patient's kidney function will not allow Lovenox. I discussed with patient again, he still is denying any chest pain, he has had not had recurrence of chest pain after the initial aspirin, Dilaudid, and nitroglycerin. I discussed with him that [facility] is advising that we have a week. And this could be over 24 hours. Patient still states that he will only be transferred to [facility], he declines me trying to transfer him to [place], [place], or any other facility at this time. I explained that there could be a long wait and this could delay his care, he states that he understands, he appreciates that we are treating him for the AK and he will wait to go to [facility]. We will contact Nicole Vega again this morning to see if we can help expedite his care. Updated Dr. Villegas. 12/24/19 05:40 I spoke with [facility] transfer center again because I have not received a call back with an accepting physician. The transfer center states that he is definitely on the wait list, they hope to have discharged this morning so they can accept patient, they state they have a new system that if the patient on the wait list can be accepted that the hospitalist will call us at that time to speak to the provider in charge of the patient for acceptance for the transfer. 12/24/19 08:00 Report/handoff given to Akshat MORRISSEY. (BHARTI RENTERIA) Disposition given by VENKATESH Davila at 0800. Patient currently on a heparin drip, is not having any active chest pain at this time. Vitals are stable, patient is on supplemental oxygen. Will consult hospitalist if patient is not able to be transferred by mid morning. Patient is afebrile. In no distress at this time. 0900- trop 0.292. Patient remains chest pain-free at this time. Vitals stable. 1024-consulted with Dr. Braeden Cunningham, physician from [facility] regarding patient's care. Did discuss pertinent laboratory diagnostic and clinical findings. He is satisfied with patient being on a heparin drip due to his chronic renal disease. He did accept the patient to his service, there are no current beds at this time once a bed opens up. Patient's vitals remained stable. He is in no distress. Patient is adamant about only going to [facility] because this is where his director of retail operations is. Declined any transfer to [facility] [place]. 1122-spoke with Dr. Michael Andres, hospitalist, for medical consult while patient awaits to be transferred to [facility]. 1200-repeat troponin 0.314. Patient is asymptomatic. Patient still on heparin drip. Vitals stable. 1334-[facility] called and said they needed a rapid Covid test in order to accept patient to their facility. Charge nurse made aware and contacting supervisor housecleaner to get a rapid Covid test 1534-rapid Covid test negative. Patient stable. Asymptomatic. Will be transferred to [facility] for interventional radiology for NSTEMI. pt was agreeable this plan of care. 12/24/19 15:42 (ARMANDO SUAREZ) - Vital Signs Vital signs: Temp Pulse Resp BP Pulse Ox 98.3 F 100 19 144/82 H 98 12/23/19 22:38 12/23/19 22:38 12/24/19 07:01 12/24/19 07:01 12/24/19 07:01 - Laboratory Laboratory results interpreted by me: 12/23/19 12/23/19 12/23/19 22:33 22:33 22:33 WBC 11.3 H RBC 3.66 L Hgb 11.4 L Hct 33.6 L Lymph % (Auto) 11.1 L Absolute Neuts (auto) 9.0 H Seg Neutrophils % 79.7 H APTT BUN 27 H Creatinine 2.19 H Est GFR ( Amer) 35 L Est GFR (MDRD) Non-Af 29 L Glucose 123 H Creatine Kinase 24 L NT-Pro-B Natriuret Pep 3550 H 12/24/19 12/24/19 05:34 12:10 WBC RBC Hgb Hct Lymph % (Auto) Absolute Neuts (auto) Seg Neutrophils % APTT 36.0 H 53.0 H BUN Creatinine Est GFR ( Amer) Est GFR (MDRD) Non-Af Glucose Creatine Kinase NT-Pro-B Natriuret Pep - EKG Interpretation by Me Additional EKG results interpreted by me: EKG shows sinus rhythm and a rate of 99, QTc 457, normal axis. Borderline ST depression in V4 but no T wave inversions or ST segment changes in consecutive leads. (BHARTI RENTERIA) Discharge <BHARTI RENTERIA - Last Filed: 12/24/19 07:52> <ARMANDO SUAREZ - Last Filed: 12/24/19 15:44> - Discharge Clinical Impression: NSTEMI (non-ST elevated myocardial infarction), Pulmonary vascular congestion Condition: Stable Disposition: [facility]
[2019-12-24] MEDS ORDERED: FUROSEMIDE INJ/PF 20 MG/2 ML SDV IV ONE (01:24)
[2019-12-24] MEDS ORDERED: FUROSEMIDE INJ/PF 40 MG/4 ML SDV ONE (01:30)
[2019-12-24] MEDS ORDERED: HEPARIN SOD (PORCINE) 1,000 UNIT/ML 10 ML VIAL IV ONE (05:23)
[2019-12-24] MEDS ORDERED: HEPARIN SODIUM,PORCINE/D5W 25,000 UNIT/250 ML RTUINJ IV PRN (05:23)
[2019-12-24] MEDS ORDERED: HEPARIN SODIUM,PORCINE/D5W 25,000 UNIT/250 ML RTUINJ IV ONE (05:35)
[2019-12-24 06:24] LABS: INTERNATIONAL RATION (INR) 1.06
[2019-12-24] MEDS ORDERED: HEPARIN SOD (PORCINE) 1,000 UNIT/ML 10 ML VIAL IV PRN (08:24)
--- NOTE | 2019-12-24 09:52 | EKG REPORT ---
SEVERITY:- ABNORMAL ECG - SINUS RHYTHM FIRST DEGREE AV BLOCK LVH WITH SECONDARY REPOLARIZATION ABNORMALITY ANTERIOR Q WAVES, POSSIBLY DUE TO LVH : Confirmed by: Alexus Mclaughlin 24-Dec-2019 09:52:05
--- NOTE | 2019-12-24 09:54 | EKG REPORT ---
SEVERITY:- ABNORMAL ECG - SINUS RHYTHM PROBABLE LEFT ATRIAL ABNORMALITY LVH WITH SECONDARY REPOLARIZATION ABNORMALITY ANTERIOR Q WAVES, POSSIBLY DUE TO LVH ST DEPRESSION, CONSIDER ISCHEMIA, ANT-LAT LDS : Confirmed by: Alexus Mclaughlin 24-Dec-2019 09:53:13
[2019-12-24] MEDS ORDERED: ACETAMINOPHEN 325 MG TABLET PO ONE (10:55)
[2019-12-24] MEDS ORDERED: TRAMADOL HCL 50 MG TABLET PO PRN (12:04)
[2019-12-24] MEDS ORDERED: IPRATROPIUM/ALBUTEROL 0.5-2.5 MG/3 ML AMPUL NEB PRN (12:04)
[2019-12-24] MEDS ORDERED: POLYETHYLENE GLYCOL 3350 POWDER 17 GM/1 PACKET PO PRN (12:04)
[2019-12-24] MEDS ORDERED: ALPRAZOLAM 0.5 MG TABLET PO PRN (12:04)
[2019-12-24 17:59] VITALS: BP 159/90
[2019-12-24] MEDS ORDERED: FUROSEMIDE 40 MG TABLET PO SCH (18:00)
[2019-12-24] MEDS ORDERED: AMITRIPTYLINE HCL 25 MG TABLET PO SCH (22:00)
[2019-12-24] MEDS ORDERED: (PENDING PHARMACY ID) (Brinzolamide/Brimonidine Tart [Simbrinza 1%-0.2% Eye Drops] 1 DROP) OS SCH (22:00)
[2019-12-24] MEDS ORDERED: CARVEDILOL 12.5 MG TABLET PO SCH (22:00)
[2019-12-24] MEDS ORDERED: DILTIAZEM HCL 240 MG CAPSULE.CR PO SCH (22:00)
[2019-12-25] MEDS ORDERED: LEVOTHYROXINE SODIUM 0.1 MG TABLET PO SCH (06:00)
[2019-12-25] MEDS ORDERED: PANTOPRAZOLE SODIUM 20 MG TABLET.DR PO SCH (08:00)
[2019-12-25] MEDS ORDERED: LEVOTHYROXINE SODIUM 0.025 MG TABLET PO SCH (08:00)
[2019-12-25] MEDS ORDERED: FUROSEMIDE 20 MG TABLET PO SCH (08:00)
[2019-12-25] MEDS ORDERED: DILTIAZEM HCL 240 MG CAPSULE.CR PO SCH (10:00)
[2019-12-25] MEDS ORDERED: (PENDING PHARMACY ID) (Iron 65 65 MG) PO SCH (10:00)
[2019-12-25] MEDS ORDERED: TAMSULOSIN HCL 0.4 MG CAP.SR.24H PO SCH (10:00)
[2019-12-25] MEDS ORDERED: MULTIVITAMIN TABLET PO SCH (10:00)
[2019-12-25] MEDS ORDERED: FLUTICASONE NASAL SPRAY 50 MCG/SPRY 120 SPRAY/16 GM NASL SCH (10:00)
[2019-12-25] MEDS ORDERED: SERTRALINE HCL 50 MG TABLET PO SCH (10:00)
[2019-12-25] MEDS ORDERED: LISINOPRIL 5 MG TABLET PO SCH (10:00)
[2019-12-25] MEDS ORDERED: FLUTICASONE NASAL SPRAY 50 MCG/SPRY 120 SPRAY/16 GM NAREB SCH (10:00)
[2019-12-25] MEDS ORDERED: (PENDING PHARMACY ID) (Brinzolamide/Brimonidine Tart [Simbrinza 1%-0.2% Eye Drops] 1 DROP) OD SCH (10:00)
[2019-12-25] MEDS ORDERED: BUSPIRONE HCL 10 MG TABLET PO SCH (10:00)
--- NOTE | 2019-12-25 16:32 | EKG REPORT ---
SEVERITY:- ABNORMAL ECG - SINUS RHYTHM FIRST DEGREE AV BLOCK PROBABLE LVH WITH SECONDARY REPOL ABNRM ANTERIOR Q WAVES, POSSIBLY DUE TO LVH BORDERLINE PROLONGED QT INTERVAL : Confirmed by: Alexus Mclaughlin 25-Dec-2019 16:31:11
== END 2019-12-24 16:45 | disposition short-term general hospital (02) ==
LOC: ER 22:05
DX: I21.4 Non-ST elevation (NSTEMI) myocardial infarction (principal); I10 Essential (primary) hypertension; I25.10 Atherosclerotic heart disease of native coronary artery without angina pectoris; J44.9 Chronic obstructive pulmonary disease, unspecified; R09.89 Other specified symptoms and signs involving the circulatory and respiratory systems; L71.1 Rhinophyma; R09.02 Hypoxemia; D72.828 Other elevated white blood cell count; Z87.891 Personal history of nicotine dependence; Z88.0 Allergy status to penicillin; Z20.828 Contact with and (suspected) exposure to other viral communicable diseases; Z82.49 Family history of ischemic heart disease and other diseases of the circulatory system
CPT/HCPCS: 93005 ×2; 96376; 99285; 96375; 96365; 96366; 36415; 82553; 82550; 85025; 85610; 85730; 80053; 84484; 83880; 71045; 93010 ×2; U0003; A9270; J1644 ×2; J1940; C9803; 87635

== ENCOUNTER 2020-02-20 12:13 | Day surgery (SDC) | payer MEDICARE, OTHER ==
[2020-02-20 13:08] LABS: HEMATOCRIT 34.4 % (37.9-51.0); HEMOGLOBIN 11.5 g/dL (13.5-17.0); MEAN CORPUSCULAR HEMOGLOBIN 29.6 pg (27.0-33.4); MEAN CORPUSCULAR HGB CONC 33.3 g/dL (32.0-36.0); MEAN CORPUSCULAR VOLUME 89 fl (80-97); PLATELET COUNT 213 10^3/uL (150-450); RED BLOOD COUNT 3.88 10^6/uL (4.35-5.55); RED CELL DISTRIBUTION WIDTH 15.3 % (11.5-14.0)
[2020-02-20 13:16] LABS: INTERNATIONAL RATION (INR) 0.97; PROTHROMBIN TIME 13.1 SEC (11.4-15.4)
[2020-02-20 13:38] LABS: BLOOD UREA NITROGEN 23 mg/dL (7-20)
[2020-02-20] MEDS ORDERED: FENTANYL CITRATE INJ/PF 100 MCG/2 ML AMPUL ONE (15:27)
--- NOTE | 2020-02-20 15:58 | RADIOLOGY REPORT (SQ) ---
EXAM DESCRIPTION: CHEST SINGLE VIEW; CT THORACENTESIS W/CHEST TUBE IMAGES COMPLETED DATE/TIME: 02/20/2020 3:17 pm; 02/20/2020 3:45 pm REASON FOR STUDY: post left thoracentesis; POST THORACENTESIS PNEUMO COMPARISON: None. EXAM PARAMETERS: NUMBER OF VIEWS: One view. TECHNIQUE: An AP view of the chest was obtained. RADIATION DOSE: NA LIMITATIONS: None. FINDINGS: LUNGS AND PLEURA: Status post left-sided ultrasound-guided thoracentesis. The dense opaci ties in the inferior aspect of the left hemithorax that obscure the contour of the hemidiaphragm and blunt the lateral costophrenic sulcus could represent a combination of residual pleural fluid and ate lectasis/consolidation. The pleural and parenchymal opacities in the inferior aspect of the right he mithorax are unchanged compared to the radiograph from 12/23/2019. There is a questionable pleural l ine in the superior aspect of the left hemithorax. MEDIASTINUM AND HILAR STRUCTURES: No mediastinal or hilar contour abnormality. HEART AND VASCULAR STRUCTURES: The cardiac silhouette is partially obscured. BONES: No acute findings. HARDWARE: None in the chest. OTHER: No other finding. IMPRESSION: Questionable pleural line in the superior aspect of the left hemithorax. TECHNICAL DOCUMENTATION: JOB ID: [id number] [employer]- All Rights Reserved Reading location - IP/workstation name: [email or web address]
[2020-02-20 16:51] LABS: FLUID APPEARANCE SLIGHTLY HAZY; FLUID COLOR LIGHT YELLOW; FLUID TYPE PLEURAL
[2020-02-20 16:52] LABS: FLUID VISCOSITY LIQUID
[2020-02-20 17:40] LABS: FLUID SOURCE LUNG
--- NOTE | 2020-02-20 19:36 | RADIOLOGY REPORT (SQ) ---
EXAM DESCRIPTION: CHEST SINGLE VIEW IMAGES COMPLETED DATE/TIME: 02/20/2020 5:16 pm REASON FOR STUDY: 2 HOUR post left thoracentesis COMPARISON: None. EXAM PARAMETERS: NUMBER OF VIEWS: One view. TECHNIQUE: Single frontal radiographic view of the chest acquired. RADIATION DOSE: NA LIMITATIONS: None. FINDINGS: LUNGS AND PLEURA: No pneumothorax. Lung markings can be seen extending all the way to the apex. Residual pleural effusion. Patchy opacification in the right lung base. MEDIASTINUM AND HILAR STRUCTURES: No masses. Contour normal. HEART AND VASCULAR STRUCTURES: Heart normal in size. Normal vasculature. BONES: No acute findings. HARDWARE: None in the chest. OTHER: No other significant finding. IMPRESSION: No pneumothorax status post thoracentesis. Residual pleural effusion. Patchy opacifica tion in the right base. Cannot exclude a limited pneumonia. TECHNICAL DOCUMENTATION: JOB ID: [id number] 2010 [employer]- All Rights Reserved Reading location - IP/workstation name: [email or web address]
[2020-02-20 19:46] VITALS: BP 168/81
--- NOTE | 2020-02-21 08:46 | RADIOLOGY REPORT (SQ) ---
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 RADIATION DOSE: None LIMITATIONS: None. PROCEDURE: The procedure, risks, benefits, and alternatives were discussed with the patient and the patient's family who then gave written consent. The left chest wall was then marked utilizing sonogr aphic guidance and a time-out was performed to document correct marking verification. The area around the selected percutaneous access site was then prepped and draped with 2% chlorhexidi ne utilizing standard sterile technique. After that, the selected access site was infiltrated with 6 ml of 1% lidocaine. A 6 Fr [id number] catheter was then introduced into the pleural space and the fluid was aspirated. After the fluid was aspirated, the catheter was removed and the entry site w as covered with a sterile bandage. No immediate complications were noted. Images acquired during the procedure were stored on PACS. The patient tolerated the procedure with local anesthesia. At the end of the procedure the patient's condition was unchanged from the preprocedural baseline. Documentation of [id number] time the proceduralist spent monitoring the patient: 15 minutes. FINDINGS: ENTRY SITE: Posterior left chest. FLUID VOLUME: 1100 mL. FLUID ANALYSIS: Straw-colored. OTHER: None. IMPRESSION: Successful left-sided ultrasound-guided thoracentesis. COMMENT: Patient medication list reviewed: Yes- Quality ID# [id number]:Eligible professional attests to doc umenting in the medical record they obtained, updated, or reviewed the patient's current medications. TECHNICAL DOCUMENTATION: JOB ID: [id number] 2010 [employer]- All Rights Reserved Reading location - IP/workstation name: [email or web address]
== END 2020-02-20 18:45 | disposition home or self-care (01) ==
LOC: RAD 12:13
PROVIDERS: ATTEND Internal Medicine Pulmonary Disease
DX: J90 Pleural effusion, not elsewhere classified (principal)
CPT/HCPCS: 32551; 32555; 36415; 71045; 82565; 82945; 83615; 84157; 84520; 85027; 85610; 85730; 87070; 87075; 87205; 89050; J3010